=== PATIENT | female | born 1960 | race Caucasian/White ===

== ENCOUNTER 2022-08-31 15:38 | Inpatient (IN) | payer BC, SELFPAY ==
[2022-08-31] VITALS (40 sets, daily range): BP systolic 76–187; BP diastolic 41–95; PULSE 108–153; RESP 14–31; TEMP 36.4–37.4; O2SAT 87–100; BMI 31.2
--- NOTE | ~2022-08-31 | MR_ITS ---
EXAMINATION: MR abdomen wo/w con DATE: 09/03/2022 13:44 INDICATION: Liver mass. TECHNIQUE: Magnetic resonance imaging (MRI) of the abdomen was performed without and with 19 mL Multi Rena intravenous contrast. COMPARISON: CT abdomen and pelvis 08/31/2022 FINDINGS: There are small pleural effusions. There is diffuse hepatic steatosis. In left hepatic lobe, there is an 8.0 x 6.2 cm mass with areas of internal arterial hyperenhancement. Much of the mass demonstrates portal venous phase hyperenhancement. There is an 8 mm hyperenhancing mass in segment VIII of the li selma, most likely benign. The gallbladder is normal in size. Gallbladder wall thickening is seen, like ly interstitial edema. The spleen, pancreas, adrenal glands, and left kidney are normal. There are ar eas of nonenhancement in right kidney. There is a subcapsular hematoma in right kidney with maximum t hickness of 2.6 cm. There are no dilated loops of bowel. There are no pathologically enlarged lymph n odes. There is no free intraperitoneal fluid. IMPRESSION: 1. 8.0 cm liver mass. The differential diagnosis includes hepatocellular carcinoma and benign mass jasso ch as hemangioma. Ultrasound-guided biopsy is recommended. 2. Subcapsular hematoma of right kidney, likely subacute. 3. Small pleural effusions. Reviewed, dictated and finalized at location A. IMPRESSION: 1. 8.0 cm liver mass. The differential diagnosis includes hepatocellular carcin jessica and benign mass such as hemangioma. Ultrasound-guided biopsy is recommended . 2. Subcapsular hematoma of right kidney, likely subacute. 3. Small pleural effusions.
--- NOTE | ~2022-08-31 | XR_ITS ---
EXAMINATION: XR retrograde pyelo w/stent RT DATE: 08/31/2022 20:14 INDICATION: Right hydronephrosis. TECHNIQUE: 5 intraoperative fluoroscopic views of the abdomen and pelvis were obtained. I was not pre sent. Fluoroscopy exposure time was 14 seconds. COMPARISON: CT abdomen and pelvis 08/31/2022 FINDINGS: The right-sided retrograde pyelogram demonstrates extraluminal contrast adjacent to lower p ole of right kidney. The final images demonstrate a right internal ureteral stent with loops in the k idney lower pole and bladder. IMPRESSION: 1. Extraluminal contrast adjacent to lower pole of right kidney. 2. Right internal ureteral stent with loops in the kidney lower pole and bladder. Reviewed, dictated and finalized at location A. IMPRESSION: 1. Extraluminal contrast adjacent to lower pole of right kidney. 2. Right internal ureteral stent with loops in the kidney lower pole and bladde r.
--- NOTE | ~2022-08-31 | CT_ITS ---
EXAMINATION: CT abdomen pelvis wo con DATE: 08/31/2022 16:41 INDICATION: Generalized abdominal pain. TECHNIQUE: Computed tomography (CT) of the abdomen and pelvis was performed without intravenous contr ast. Automated exposure control and iterative reconstruction technique were employed. The dose-length product was 983.79 mGy-cm. COMPARISON: None. FINDINGS: The visualized portions of the lung bases demonstrate mild atelectasis. Calcified right hil ar and mediastinal lymph nodes are consistent with old granulomatous disease. No pleural effusion. Th e heart size is normal. There are coronary artery calcifications. No pericardial effusion. There is d iffuse hepatic steatosis. There is an 8.0 cm mass in left hepatic lobe. Calcifications in the spleen are consistent with old granulomatous disease. The gallbladder, pancreas, and adrenal glands are norm al. There is cortical thinning in right kidney. There are two 2 mm stones in right kidney. There is m ild right hydronephrosis and proximal hydroureter. There is a 4 mm mass in proximal right ureter with attenuation of 49 HU. There is asymmetric fat stranding around right kidney. There are 3 stones in l eft kidney measuring up to 4 mm. There is diverticulosis of the colon without evidence of diverticuli tis. There are no dilated loops of bowel. The appendix is not visualized. Paraesophageal varices are noted. There is a paraumbilical portacaval shunt. There is a portacaval shunt from the splenic vein t o the pelvis. No pathologically enlarged lymph nodes. There is no free intraperitoneal fluid. There a re bilateral inguinal hernias containing fat. There is mild thoracolumbar spondylosis. IMPRESSION: 1. 4 mm mass in proximal right ureter with mild right hydronephrosis. The mass may be a hematoma, sto ne, or neoplasm. 2. Bilateral nonobstructing kidney stones. 3. 8.0 cm liver mass, which may be benign or malignant. Abdomen MRI without and with contrast is shayan mmended. 4. Diffuse hepatic steatosis. 5. Portal venous hypertension. Reviewed, dictated and finalized at location A. IMPRESSION: 1. 4 mm mass in proximal right ureter with mild right hydronephrosis. The mass may be a hematoma, stone, or neoplasm. 2. Bilateral nonobstructing kidney stones. 3. 8.0 cm liver mass, which may be benign or malignant. Abdomen MRI without and with contrast is recommended. 4. Diffuse hepatic steatosis. 5. Portal venous hypertension.
--- NOTE | ~2022-08-31 | XR_ITS ---
EXAMINATION: XR chest port-a-cath/central INDICATION: Central line insertion TECHNIQUE: Portable AP chest at 0319 hours COMPARISON: 12/13/2006 FINDINGS: A right internal jugular catheter ends with its tip in the distal superior vena cava. There is mild atelectasis of the lung bases. No pleural effusion or pneumothorax. The cardiomediastinal si lhouette is normal. IMPRESSION: 1. Right internal jugular central venous catheter ending with its tip in the distal superior vena cav a. No pneumothorax. 2. Mild atelectasis of the lung bases. Reviewed, dictated and finalized at location D. IMPRESSION: 1. Right internal jugular central venous catheter ending with its tip in the di stal superior vena cava. No pneumothorax. 2. Mild atelectasis of the lung bases.
[2022-08-31 16:14] LABS: Hematocrit 39.7 % (37.0-47.0); Mean Corpuscular HGB Conc 32.7 g/dl (32-36); Mean Corpuscular Hemoglobin 27.8 pg (26-34); Mean Platelet Volume 10.7 fl (7.4-10.4); Platelet Count Result 128 k/mm3 (150-375); Red Blood Count 4.67 M/mm3 (4.2-5.4); White Blood Count 15.5 K/mm3 (4.5-10.0)
[2022-08-31] MEDS: SODIUM CHLORIDE 0.9% IV 1,000 ML 999 ML IV CONT ×2 (16:15→18:18)
[2022-08-31] MEDS: fentaNYL CITRATE INJ (*CRX) 100 MCG/2 ML VIAL 50 MCG IV PUSH ×2 (16:16→18:18)
[2022-08-31 16:26] LABS: Albumin Level 3.8 g/dL (3.5-5.1); Alkaline Phosphatase 26 U/L (38-126); Anion Gap 18 mmol/L (8-16); Aspartate Amino Transferase 48 U/L (14-36); Blood Urea Nitrogen 33 mg/dL (7-17); Calcium 8.5 mg/dL (8.4-10.2); Carbon Dioxide 18 mmol/L (22-30); Chloride 99 mmol/L (98-107); Estimated Glomerular Filt Rate 29; Glucose 458 mg/dL (65-110); Lipase 48 U/L (23-300); Potassium 4.3 mmol/L (3.4-5.0); Sodium 135 mmol/L (137-145)
[2022-08-31 16:34] LABS: Band Neutrophils Percent 28 % (0-6); Lymphocytes Absolute Manual 0.93 K/mm3 (1.1-4.5); Monocytes Absolute Manual 0.31 K/mm3 (0.1-0.90); Monocytes Percent Manual 2 % (3-9); Neutrophils Absolute Manual 14.26 K/mm3 (1.7-7.2); Neutrophils Percent Manual 64 % (46-73); Total Cells Counted 100
[2022-08-31 16:35] LABS: Schistocytes None Seen (NORMAL)
[2022-08-31 16:43] LABS: Alanine Aminotransferase 58 U/L (6-35)
[2022-08-31 17:07] LABS: INR 1.2; Prothrombin Time 14.9 Seconds (11.1-14.7)
[2022-08-31 17:09] LABS: Partial Thromboplastin Time 39.7 SECONDS (22.3-36.8)
--- NOTE | 2022-08-31 17:32 | ED.ABDPAIN ---
HPI - Abdominal Pain General Chief Complaint: Abdominal Pain Stated Complaint: abd pain Time Seen by Provider: 08/31/22 15:51 History of Present Illness HPI narrative: Patient is a 62-year-old female who presents ER with right side abdominal pain. Worsening for the last 2 days. Associate with fevers. No chills. No chest pain or chest pressure. No alleviating factors. Worse with any type of movement. Normal bowel movements. Denies urinary symptoms. Related Data Home Medications Medication Instructions Recorded Confirmed empagliflozin 25 mg tablet mg 08/31/22 (Jardiance) insulin glargine 100 unit/mL (3 unit subcut 08/31/22 mL) subcutaneous pen (Basaglar KwikPen U-100 Insulin) insulin lispro 200 unit/mL (3 mL) subcut 08/31/22 subcutaneous pen (Humalog KwikPen U-200 Insulin) liraglutide 0.6 mg/0.1 mL (18 mg/3 mg subcut 08/31/22 mL) subcutaneous pen injector (Victoza 2-Timothy) lisinopril 30 mg tablet mg 08/31/22 oxybutynin chloride 5 mg tablet mg 08/31/22 sertraline 100 mg tablet mg 08/31/22 Allergies Allergy/AdvReac Type Severity Reaction Status Date / Time No Known Allergies Allergy Mild Verified 08/31/22 15:59 Review of Systems Review of Systems: All systems reviewed & are unremarkable except as noted in HPI and below Constitutional: Constitutional: Denies chills, Denies fatigue and Reports fever(s) ENT: Denies nasal congestion and Denies sore throat Cardiovascular: Cardiovascular: Denies chest pain, Denies rapid heart rate and Denies radiating jaw, neck or arm pain Respiratory: Respiratory: Denies cough and Denies dyspnea Gastrointestinal: Gastrointestinal: Reports abdominal pain, Denies constipation, Denies diarrhea, Reports nausea and Denies vomiting Genitourinary: Genitourinary: Denies hematuria, Denies nocturia and Denies dysuria Musculoskeletal: Musculoskeletal: Denies back pain and Denies myalgias [facility] Past Medical History Medical History (Updated 08/31/22 @ 22:26 by Ap Joseph MD) Diabetes Hypertension Kidney stones Surgical History Surgical History (Updated 08/31/22 @ 22:24 by Ap Joseph MD) History of hysterectomy Social History Social History (Updated 08/31/22 @ 22:24 by Ap Joseph MD) Smoking status: Never smoker Exam Narrative: GENERAL: Uncomfortable-appearing, well-nourished, and in no acute distress. HEAD: Normocephalic, atraumatic. EYES: PERRL and EOMI. ENT: Mucous membranes moist. CHEST: Clear to auscultation. No respiratory distress. HEART: Regular rate and rhythm. Normal peripheral pulses. ABDOMEN: Soft, diffusely tender abdomen that is worse in the right lower quadrant and epigastrium with guarding, nondistended, normal bowel sounds EXTREMITIES: Normal range of motion. No edema. SKIN: Warm, dry, no rash. NEURO: Alert and oriented x3. PSYCH: Normal mood and affect. Course Course Emergency Course: Discussed with urology who will take patient to the OR for stent placement. Hospitalist contacted to make aware of severity of illness and need for management after admission from OR. Blood pressure responding to IV fluid. Patient is good color is not altered. Pain control with fentanyl while in the ER. Patient does not believe she is known to have a liver mass. Vital Signs Vital signs: Vital Signs Temperature 97.7 F 08/31/22 15:45 Pulse Rate 122 H 08/31/22 15:45 Respiratory Rate 14 08/31/22 15:45 Blood Pressure 87/41 L 08/31/22 15:45 Pulse Oximetry 99 08/31/22 15:45 Oxygen Delivery Room Air 08/31/22 15:45 Temperature 97.6 F 08/31/22 21:45 Pulse Rate 119 H 08/31/22 21:45 Respiratory Rate 18 08/31/22 21:45 Blood Pressure 112/61 08/31/22 21:45 Pulse Oximetry 100 08/31/22 21:45 Oxygen Delivery Nasal Cannula 08/31/22 21:35 Oxygen Flow Rate 5 08/31/22 21:35 MDM - Abdominal Pain Lab Data Result diagrams: 08/31/22 16:07 08/31/22 16:07
[2022-08-31 17:42] LABS: Add Urine Microscopic? YES; Amorphous Sediment Urine Few; Appearance Urine Cloudy (Clear); Bacteria Urine Trace /hpf; Bilirubin Urine Negative (Negative); Blood Urine 1+ (Negative); Color Urine Amber (Yellow); Glucose Urine UA 3+ mg/dL (Negative); Ketones Urine Negative (Negative); Leukocyte Esterase Ur 2+ LEU/UL (Negative); Mucus Urine Rare /lpf; Nitrate Urine Negative (Negative); Protein Urine 1+ mg/dL (Negative); Specific Grav Ur 1.018 (1.001-1.035); Squamous Epithelial Cell Urine Many /hpf (Few); Urobilinogen Urine Negative mg/dL (<2.0); WBC Clumps Urine Present /HPF; WBC Urine >75 /hpf
--- NOTE | 2022-08-31 18:33 | WPDURCON ---
Assessment and Plan Assessment and plan (1) Ureteral obstruction, right: Code(s): N13.5 - Crossing vessel and stricture of ureter without hydronephrosis Status: Acute Plan 62F with diabetes and SIRS with potential urinary source with leukocytosis, MOISES, and CT showing mild hydronephrosis and right proximal ureteral obstruction. - Due to the above, planning for urgent OR for cystoscopy, right ureteral stent placement, retrograde pyelogram, and other indicated procedures. Discussed risks and benefits with patient who endorses understanding and willing to proceed. - Admit to hospitalist team after OR. - Continue IV antibiotics at this time. Urology Consult Note HPI Date Seen: 08/31/22 Primary Care Provider: Andrew Severino, Consult Narrative Narrative: Verona Frausto is a 62 year old female with hx of DM, HTN, OAB presenting to the ED with abdominal pain found to have signs of UTI and a right ureteral obstruction. Patient presented with abdominal discomfort which was generalized but mostly on the right side. Denies hematuria, did have some chills this AM. After presenting to the ED, found to be tachycardic, mildly hypotensive. Had leukocytosis, MOISES, and UA with signs of infection. CT scan with right proximal ureteral obstruction though unclear if hematoma, mass, or stone. Right hydronephrosis noted; no left sided hydronephrosis noted (scan personally reviewed). Meds Home Medications and Allergies Home Medications Medication Instructions Recorded Confirmed Type empagliflozin 25 mg tablet mg 08/31/22 History (Jardiance) insulin glargine 100 unit/mL (3 unit subcut 08/31/22 History mL) subcutaneous pen (Basaglar KwikPen U-100 Insulin) insulin lispro 200 unit/mL (3 mL) subcut 08/31/22 History subcutaneous pen (Humalog KwikPen U-200 Insulin) liraglutide 0.6 mg/0.1 mL (18 mg/3 mg subcut 08/31/22 History mL) subcutaneous pen injector (Victoza 2-Timothy) lisinopril 30 mg tablet mg 08/31/22 History oxybutynin chloride 5 mg tablet mg 08/31/22 History sertraline 100 mg tablet mg 08/31/22 History Allergies Allergy/AdvReac Type Severity Reaction Status Date / Time No Known Allergies Allergy Mild Verified 08/31/22 15:59 Vital Signs Vital Signs - 24 hr 08/31/22 15:45 08/31/22 15:56 08/31/22 16:04 Temperature 36.5 C Pulse Rate 122 H 119 H Respiratory Rate 14 28 H Blood Pressure 87/41 L 102/55 L Pulse Oximetry 99 90 95 Oxygen Delivery Room Air Room Air Nasal Cannula Oxygen Flow Rate 2 08/31/22 17:05 08/31/22 16:47 Temperature Pulse Rate 114 H 117 H Respiratory Rate 24 H 24 H Blood Pressure 98/57 L 97/67 L Pulse Oximetry 95 95 Oxygen Delivery Oxygen Flow Rate Exam Const: General: no acute distress Eyes: General: appearance normal, both eyes and all related structures Resp: Effort & Inspection: normal respiratory effort Cardio: Other: Tachycardic GI: Other: Soft, nondistended, mildly tender to palpation : Other: Right CVA tenderness Skin: General skin exam: no rashes or lesions noted Neuro: Other: WNL Results Labs CBC & Chem 7: 08/31/22 16:07 08/31/22 16:07 Labs: Short CBC 08/31/22 Range/Units 16:07 WBC 15.5 H (4.5-10.0) K/mm3 Hgb 13.0 (12.0-15.0) g/dL Hct 39.7 (37.0-47.0) % Plt Count 128 L (150-375) k/mm3 BMP 08/31/22 16:07 Sodium 135 L Potassium 4.3 Chloride 99 Carbon Dioxide 18 L BUN 33 H Creatinine 1.80 H Glucose 458 H Calcium 8.5 Liver Function 08/31/22 Range/Units 16:07 Total Bilirubin 1.0 (0.2-1.3) mg/dL AST 48 H (14-36) U/L ALT 58 H (6-35) U/L Alkaline Phosphatase 26 L (38-126) U/L Albumin 3.8 (3.5-5.1) g/dL Urine 08/31/22 Range/Units 17:20 Urine Color [place] (Yellow) Urine Appearance Cloudy H (Clear) Urine pH 5.0 (5.0-9.0) Ur Specific [place] 1.018 (1.001-1.035) Urine Protein 1+ H (
[2022-08-31 18:40] LABS: Lactic Acid Reflex 6.6 mmol/L (0.7-2.0)
--- NOTE | 2022-08-31 18:48 | WPDANESEPPF ---
Anes - Initial Pre Proc Eval Procedure: Cystoscopy, R ureteral stent placement, retrograde pyelogram Date/Time: 08/31/22 18:48 Surgeon: Annabelle Cross MD Pre Op Diagnosis: R proximal ureteral obstruction Pre Op Diagnosis: abd pain Patient Data Age: 62 Gender: F Height: Weight: 78.2 kg Last Vital Signs Temp 36.5 C 08/31/22 15:45 Pulse 114 H 08/31/22 17:05 Resp 24 H 08/31/22 17:05 BP 98/57 L 08/31/22 17:05 Pulse Ox 95 08/31/22 17:05 O2 Del Method Nasal Cannula 08/31/22 16:04 O2 Flow Rate 2 08/31/22 16:04 Allergies Allergy/AdvReac Type Severity Reaction Status Date / Time No Known Allergies Allergy Mild Verified 08/31/22 15:59 Home Medications Medication Instructions Recorded Confirmed Type empagliflozin 25 mg tablet mg 08/31/22 History (Jardiance) insulin glargine 100 unit/mL (3 unit subcut 08/31/22 History mL) subcutaneous pen (Basaglar KwikPen U-100 Insulin) insulin lispro 200 unit/mL (3 mL) subcut 08/31/22 History subcutaneous pen (Humalog KwikPen U-200 Insulin) liraglutide 0.6 mg/0.1 mL (18 mg/3 mg subcut 08/31/22 History mL) subcutaneous pen injector (Victoza 2-Timothy) lisinopril 30 mg tablet mg 08/31/22 History oxybutynin chloride 5 mg tablet mg 08/31/22 History sertraline 100 mg tablet mg 08/31/22 History Laboratory Tests 08/31/22 08/31/22 08/31/22 16:07 16:07 16:07 WBC 15.5 K/mm3 H K/mm3 (4.5-10.0) RBC 4.67 M/mm3 M/mm3 (4.2-5.4) Hgb 13.0 g/dL g/dL (12.0-15.0) Hct 39.7 % % (37.0-47.0) MCV 85.0 fl fl (80-100) MCH 27.8 pg pg (26-34) MCHC 32.7 g/dl g/dl (32-36) RDW 15.0 % H % (11.5-14.5) Plt Count 128 k/mm3 L k/mm3 (150-375) MPV 10.7 fl H fl (7.4-10.4) Immature Gran % (Auto) Not Reportable Neut % (Auto) Not Reportable Lymph % (Auto) Not Reportable [place] % (Auto) Not Reportable Eos % (Auto) Not Reportable Baso % (Auto) Not Reportable Lymph # (Auto) Not Reportable [place] # (Auto) Not Reportable Eos # (Auto) Not Reportable Baso # (Auto) Not Reportable Abs Immat Gran (auto) Not Reportable Absolute Neuts (auto) Not Reportable Absolute Nucleated RBC Not Reportable Total Counted 100 Neutrophils % (Manual) 64 % % (46-73) Band Neutrophils % 28 % H % (0-6) Lymphocytes % (Manual) 6.0 % L % (18-44) Monocytes % (Manual) 2 % L % (3-9) Nucleated RBC % Not Reportable Abs Neuts (Manual) 14.26 K/mm3 H K/mm3 (1.7-7.2) Abs Lymphs (Manual) 0.93 K/mm3 L K/mm3 (1.1-4.5) Abs Monocytes (Manual) 0.31 K/mm3 K/mm3 (0.1-0.90) Platelet Estimate Slightly decreased (Adequate) Schistocytes None seen (NORMAL) PT 14.9 Seconds H Seconds (11.1-14.7) INR 1.2 APTT 39.7 SECONDS H SECONDS (22.3-36.8) Sodium 135 mmol/L L mmol/L (137-145) Potassium 4.3 mmol/L mmol/L (3.4-5.0) Chloride 99 mmol/L mmol/L (98-107) Carbon Dioxide 18 mmol/L L mmol/L (22-30) Anion Gap 18 mmol/L H mmol/L (8-16) BUN 33 mg/dL H mg/dL (7-17) Creatinine 1.80 mg/dL H mg/dL (0.7-1.0) Estim Creat Clear Calc Not Reportable Estimated GFR 29 L (59 - ) Glucose 458 mg/dL H mg/dL (65-110) Lactic Acid Calcium 8.5 mg/dL mg/dL (8.4-10.2) Total Bilirubin 1.0 mg/dL mg/dL (0.2-1.3) AST 48 U/L H U/L (14-36) ALT 58 U/L H U/L (6-35) Alkaline Phosphatase 26 U/L L U/L (38-126) Total Protein 7.0 g/dL g/dL (6.3-8.2) Albumin 3.8 g/dL g/dL (3.5-5.1) Lipase 48 U/L U/L (23-
[2022-08-31] MEDS: LACTATED RINGERS 1,000 ML 30 ML IV CONT ×2 (19:00→20:14)
[2022-08-31 19:24] LABS: Glucose Point of Care 340 mg/dl (65-105)
--- NOTE | 2022-08-31 19:36 | P.OP_ITS ---
Procedure Note - Detailed Date of Procedure 08/31/22 Pre-op Diagnosis Right ureteral obstruction Post-op Diagnosis Same Procedure Performed Cystoscopy, right retrograde pyelogram, right ureteral stent placement, intraoperative interpretation of fluoroscopy (<60 min) Surgeon Annabelle Cross MD Anesthesia General Indications 62F with leukocytosis, MOISES, and found to have right ureteral obstruction at proximal ureter of unclear etiology. Description of Procedure The patient was brought back to the operating theatre. After the induction of excellent anesthesia, a surgical time out was performed, and we verified the patient identification, site, laterality, and procedure. Patient received pre- operative antibiotics within 60 minutes of start time. The patient was placed in the dorsal lithotomy position. The genital area was prepped and draped in the usual, sterile fashion. We introduced a 22 Fr rigid cystoscope easily into the bladder. The urethra was noted to be unremarkable. The bladder was emptied. The scope was re-inserted. Cystoscopy did reveal multiple areas in the bladder throughout that appeared erythematous and suspicious for malignancy, including a somewhat vascular papillary area at the posterior bladder wall. We did not take biopsies due to her being tachycardic and mildly hypotensive. We then focused on the right ureteral orifice. The right ureteral orifice was identified and cannulated with 5 Fr open ended catheter. We did shoot a retrograde pyelogram, which did show mild right sided hydronephrosis. A sensor guidewire was placed into the catheter and advanced to the renal pelvis using fluoroscopy. As soon as this wire went up, purulent fluid began coming out of the ureteral orifice. A 4.8 double-J multi-length stent was then placed under direct vision with a curl observed in the kidney and in the bladder. We did not leave a string on the stent. Due to the urine appearance, a 16F urethral andres catheter was placed and 10cc was used to inflate the balloon. The patient was then awoken without event, transferred to the recovery cart and transported to the PACU in stable condition.. Implants Right 4.8F double-J multilength ureteral stent Estimated Blood Loss 0 Complications No immediate complications Condition Stable Disposition PACU (To be admitted to floor vs stepdown with hospitalist team as primary. Continue broad spectrum IV antibiotics until urine cultures return. In the future, patient will require both ureteroscopy to assess the proximal ureteral obstruction, as well as bladder biopsy/TURBT in an outpatient setting. )
[2022-08-31] MEDS: SCOPOLAMINE 1.5 MG PATCH TRANSDERM (19:38)
--- NOTE | 2022-08-31 19:39 | P.PNAN_ITS ---
Anes - Eval Final PreProcedure Day of Procedure 08/31/22 19:39 Patient weight: overweight Heart: tachycardia Lungs: decreased breath sounds Airway: Mallampati scale class III Neurological: other (alert) Last oral intake: >/= 8 hours ASA classification: III Emergent: yes Anesthetic plan: proceed Anesthesia type and monitoring: general LMA and standard monitoring Results Review: All pre-operative results and documents have been reviewed as part of the pre- operative evaluation. Informed Consent: The patient's anesthetic plan and its attendant risks and benefits were discussed with the patient/family/POA. Questions were solicited and answers provided to the satisfaction of the patient/family/POA.
--- NOTE | 2022-08-31 19:41 | WPDHPUPDATE1 ---
History and Physical Update Update Date/Time: 08/31/22 19:41 History and Physical has been reviewed, including an updated exam of the patient. There are NO changes in the patient's condition. Risks, benefits, and alternatives have been discussed and questions answered. Patient agrees to proceed with procedure.
[2022-08-31] MEDS: LIDOCAINE HCL 2% GEL UROJET 10 ML PKG MUCOUS MEM (20:02)
--- NOTE | 2022-08-31 20:15 | PM.IMHP ---
H&P: HPI History of Present Illness Date/Time: 08/31/22 20:15 Chief Complaint: Flank pain Narrative: This is a 62-year-old female with past medical history significant for type 2 diabetes mellitus, patient is now status post retrograde pyelogram with situs copy and stent placement presented to the emergency room with right flank pain of 2 day duration, not much history was able to obtain as patient is status post procedure she still coming out of anesthesia. patient was found to have on CT of abdomen and pelvis: IMPRESSION: 1. 4 mm mass in proximal right ureter with mild right hydronephrosis. The mass may be a hematoma, stone, or neoplasm. 2. Bilateral nonobstructing kidney stones. 3. 8.0 cm liver mass, which may be benign or malignant. Abdomen MRI without and with contrast is recommended. 4. Diffuse hepatic steatosis. 5. Portal venous hypertension. patient with lactic acid of 6 as well initial white blood cell count was 15,000 creatinine 1.8 urinalysis was significant for WBC more than 75 per high-power field. In the postop patient had episode of hypoxia, low oxygen saturation requiring 6 L by nasal cannula.Patient is been admitted for further evaluation management and treatment. Review of Systems Review of Systems: ROS unobtainable: Yes unobtainable due to medical condition ( sepsis, anesthesia.) [facility] Past Medical History Medical History (Updated 09/01/22 @ 06:15 by Mynor Song MD) Diabetes Hypertension Kidney stones Surgical History Surgical History (Updated 08/31/22 @ 22:24 by Ap Joseph MD) History of hysterectomy Social History Social History (Updated 08/31/22 @ 22:24 by Ap Joseph MD) Smoking status: Former smoker Alcohol intake: never Substance use: never Substance use type: does not use Spiritual care concerns: No Has the Lack of Transportation Kept You From Medical Appointments or From Getting Medications?: No Within the Past 12 Months, Were You Worried Whether Your Food Would Run Out Before You Got Money to Buy More?: Never True What is Your Housing Situation Today?: I Have Housing Are You Worried That in the Next 2 Months, You May Not Have Your Own Housing to Live In?: No Do You Have Trouble Paying Your Heating Or Electricity Bill?: No Do You Have Trouble Paying For Medicines?: No Are You Currently Unemployed and Looking for Work?: No Highest Level of Education Completed: Decline to Answer Do You Have Trouble With Childcare or the Care of a Family Member?: No Meds Home Medications and Allergies Home Medications Medication Instructions Recorded Confirmed Type buspirone 10 mg tablet 10 mg PO Q12H PRN Anxiety 08/31/22 08/31/22 History empagliflozin 25 mg tablet 25 mg PO DAILY 08/31/22 08/31/22 History (Jardiance) insulin glargine 100 unit/mL (3 40 unit subcut BID 08/31/22 08/31/22 History mL) subcutaneous pen (Basaglar KwikPen U-100 Insulin) insulin lispro 200 unit/mL (3 mL) 3 unit subcut TIDWMEAL 08/31/22 08/31/22 History subcutaneous pen (Humalog KwikPen U-200 Insulin) lisinopril 30 mg tablet 30 mg PO DAILY 08/31/22 08/31/22 History oxybutynin chloride 5 mg tablet 10 mg PO BID 08/31/22 08/31/22 History sertraline 100 mg tablet 100 mg PO DAILY 08/31/22 08/31/22 History Allergies Allergy/AdvReac Type Severity Reaction Status Date / Time No Known Allergies Allergy Mild Verified 08/31/22 15:59 Vital Signs Vital Signs - 24 hr 08/31/22 15:45 08/31/22 15:56 08/31/22 16:04 Temperature 97.7 F Pulse Rate 122 H 119 H Respiratory Rate 14 28 H Blood Pressure 87/41 L 102/55 L Pulse Oximetry 99 90 95 Oxygen Delivery Room Air Room Air Nasal Cannula Oxygen Flow Rate 2 08/31/22 17:05 08/31/22 16:47 08/31/22 18:52 Temperature Pulse Rate 114 H 117 H 118 H Respiratory Rate 24 H 24 H 20 Blood Pressure 98/57 L 97/67 L 107/67 Pulse Oximetry 95 95 100 Oxygen Delivery Oxygen Flow Rate Exam Narr
[2022-08-31] MEDS: MIDAZOLAM HCL (*CRX) 2 MG/2 ML VIAL IV PUSH (20:30)
[2022-08-31] MEDS: METOPROLOL TARTRATE INJ 5 MG/5 ML VIAL IV PUSH ×2 (20:35→20:42)
[2022-08-31] MEDS: HYDROCORTISONE SODIUM SUCCINATE 100 MG/2 ML VIAL IV PUSH (20:42)
[2022-08-31] MEDS: ALBUTEROL SULFATE NEB 2.5 MG/3 ML INH INHALATION (20:47)
[2022-08-31] MEDS: INSULIN HUMAN REGULAR (*BKC) 100 UNITS/ML 8 UNITS SUB-Q (20:48)
[2022-08-31 21:20] LABS: Reflex Lactic Acid Yes or No Add Lactic
[2022-08-31 21:24] LABS: Glucose Point of Care 299 mg/dl (65-105)
[2022-08-31 22:00] LABS: Glucose Point of Care 268 mg/dl (65-105)
--- NOTE | 2022-08-31 22:07 | SUR.PHASEI ---
2013- Patient brought to recovery room s/p cysto. First set of vital obtained, patient tachycardic 140's with respiratory rate 25. Audible wheezes. 2028- IV tylenol given for temperature 99.9. 2029- Patient continues to be tachycardic, tachypneic, and very restless. Dr. Pollack and [employer] at bedside. 2mg of versed given to patient. 2034- Tachycardia continues, 5mg of IV lopressor given for heart rate 140-150's. EKG ordered. 2041- Albuterol neb treatment being given to patient for wheezing and labored breathing. 100mg of solucortef also administered along with 5mg of IV lopressor for continued tachycardia. 2043- blood glucose check, 299. 8u of regular insulin given to patient subcutaneously. 2099- Patient resting comfortably. Vital signs improved. O2 titrated down to 5L, patients daughter Corinne at bedside visiting with patient. Awaiting transfer to IMU room 2144- Patient transfered to IMU report given to [place]. Patient in stable condition.
--- NOTE | 2022-08-31 22:35 | ADMGEN ---
This patient, Verona Frausto, was admitted to IMU Room 203-01. Patient/family oriented to hospital policies and general routines including ID bracelet, bed and alarms, visiting hours, pain management, procedures, bathroom and other care routines, personal items, smoking policy, room service/diet, and visiting hours. Information on how to activate the Rapid Response Team has been discussed. Patient/Family are encouraged to report perceived risks to care and to ask questions if they do not understand what they are told or what they should do.
[2022-08-31 23:05] LABS: Hematocrit 39.3 % (37.0-47.0); Hemoglobin 12.7 g/dL (12.0-15.0); Immature Platelet Fraction Pct 4.1 % (0.9-11.2); Mean Corpuscular HGB Conc 32.3 g/dl (32-36); Mean Corpuscular Hemoglobin 28.2 pg (26-34); Mean Corpuscular Volume 87.3 fl (80-100); Platelet Count Result 92 k/mm3 (150-375); Red Cell Distribution Width 15.2 % (11.5-14.5); White Blood Count 4.3 K/mm3 (4.5-10.0)
[2022-08-31 23:13] LABS: INR 1.3; Prothrombin Time 15.8 Seconds (11.1-14.7)
[2022-08-31 23:17] LABS: Anion Gap 16 mmol/L (8-16); Blood Urea Nitrogen 35 mg/dL (7-17); Calcium 7.9 mg/dL (8.4-10.2); Carbon Dioxide 16 mmol/L (22-30); Chloride 104 mmol/L (98-107); Estimated CRCL calculation 33 ml/min; Estimated Glomerular Filt Rate 31; Glucose 268 mg/dL (65-110); Phosphorus 4.5 mg/dL (2.5-4.5); Potassium 4.1 mmol/L (3.4-5.0); Sodium 136 mmol/L (137-145)
[2022-08-31] MEDS: SODIUM CHLORIDE 0.9% IV 500 ML IV CONT (23:23)
[2022-08-31 23:24] LABS: Neutrophils Percent Manual 70 % (46-73); Total Cells Counted 100
[2022-08-31] MEDS: MORPHINE SULFATE (*CRX) 2 MG/ML INJ IV PUSH (23:24)
[2022-08-31 23:25] LABS: Band Neutrophils Percent 23 % (0-6); Lymphocytes Absolute Manual 0.21 K/mm3 (1.1-4.5); Lymphocytes Percent Manual 5 % (18-44); Monocytes Absolute Manual 0.08 K/mm3 (0.1-0.90); Monocytes Percent Manual 2 % (3-9); Neutrophils Absolute Manual 3.99 K/mm3 (1.7-7.2); Platelet Estimate Decreased (Adequate); Schistocytes None Seen (NORMAL)
--- NOTE | 2022-08-31 23:55 | PC.NURSE ---
Updated daughter, Kinga, on patient condition, plan of care, visiting hours and age restrictions.
[2022-09-01] VITALS (50 sets, daily range): BP systolic 68–148; BP diastolic 35–86; PULSE 70–159; RESP 16–31; TEMP 36.4–37.5; O2SAT 82–100
[2022-09-01] MEDS: hetaSTARCH 6%/NACL 500 ML 250 ML IV CONT (01:06)
--- NOTE | 2022-09-01 02:10 | ECG_ITS ---
Measurements Intervals [place] Rate: 162 P: NV: 0 QRS: 21 QRSD: 82 T: -3 QT: 265 QTc: 436 Interpretive Statements ATYPICAL ATRIAL FLUTTER/TACHYCARDIA WITH RAPID VENTRICULAR RESPONSE MINIMAL ST DEPRESSION [0.025+ mV ST DEPRESSION] ABNORMAL RHYTHM ECG NO PREVIOUS ECG AVAILABLE FOR COMPARISON HOW Electronically Signed On 09-01-2022 14:00:32 CDT by Speedy Krause M.D.
[2022-09-01] MEDS: SODIUM CHLORIDE 0.9% IV 1,000 ML 999 ML IV CONT (02:55)
[2022-09-01] MEDS: NOREPINEPHRINE 8 MG/D5W 250 ML 8 MG/250 ML BAG 9.38 MG IV CONT (02:55)
--- NOTE | 2022-09-01 03:09 | PC.NURSE ---
This patient, Verona Frausto, was transferred to [ICU ] on 09/01/22 at 0230. Personal belongings sent with patient. Report given to [Tram DELAROSA ]. Appropriate documentation sent with patient.
--- NOTE | 2022-09-01 04:57 | P.PCNBED_ITS ---
Procedures Central Line Placement Right IJ: Central Line Date: 09/01/22 Central Line Time: 03:30 Consent: I have discussed with the patient and/or surrogate, the non-emergent placement of a central venous catheter, including its clinical necessity/indication and associated potential risks and complications. The patient and/or surrogate understand(s) and acknowledge(s) the need to proceed with central venous catheter insertion as an important element of the patient's clinical management. Time Out Performed: Yes Patient Position: trendelenburg Patient placed on monitor/pulse ox: Yes Provider Prep: mask, sterile gown, sterile gloves, Max. sterile barrier precautions and cap Central line prep: 2% Chlorhexidine scrub Local anesthesia used: lidocaine 1% Amount of anesthesia used (ml): 10 Sterile US Technique with sterile gel/sterile probe covers: Yes Central line lumen inserted: triple Georgian: 15 Length (cm): 15 Depth of Insertion (cm): 15 Post Procedure: sutured in place, good blood return, all ports aspirated, flushed, capped, transparent dressing and aseptic technique maintained throughout procedure Post procedure x-ray: tip of catheter in good position and no pneumothorax seen Patient tolerated procedure: well and no complications Complications: none
[2022-09-01] MEDS: CENTRAL LINE FLUSH 10 ML IV PUSH ×4 (06:00→21:04)
[2022-09-01 06:44] LABS: Hematocrit 32.1 % (37.0-47.0); Hemoglobin 10.5 g/dL (12.0-15.0); Immature Platelet Fraction Pct 3.6 % (0.9-11.2); Mean Corpuscular HGB Conc 32.7 g/dl (32-36); Mean Corpuscular Hemoglobin 27.9 pg (26-34); Mean Corpuscular Volume 85.4 fl (80-100); Mean Platelet Volume 10.4 fl (7.4-10.4); Platelet Count Result 95 k/mm3 (150-375); Red Blood Count 3.76 M/mm3 (4.2-5.4); Red Cell Distribution Width 15.5 % (11.5-14.5); White Blood Count 9.7 K/mm3 (4.5-10.0)
[2022-09-01 06:53] LABS: Anion Gap 13 mmol/L (8-16); Blood Urea Nitrogen 39 mg/dL (7-17); Carbon Dioxide 18 mmol/L (22-30); Chloride 106 mmol/L (98-107); Estimated CRCL calculation 31 ml/min; Estimated Glomerular Filt Rate 29; Glucose 261 mg/dL (65-110); Magnesium 1.1 mg/dL (1.6-2.3); Phosphorus 4.6 mg/dL (2.5-4.5); Sodium 137 mmol/L (137-145)
[2022-09-01 06:55] LABS: Lactic Acid Reflex 3.4 mmol/L (0.7-2.0)
--- OUTSIDE RECORDS SUMMARY | 2022-09-01 07:14 | XMS_ITS ---
:1960 Author Care Team Providers Name Role Phone Jeronimo Walden Primary Care Provider Unavailable Allergies Code Code System Name Reaction Severity Status Onset NKDA ? Medications Name Status Start Date Stop Date ? ? albuterol sulfate HFA 90 mcg/actuation aerosol inhaler Active ? Not available Inhale 2 puffs every 4 hours by inhalation route for 30 days. bupropion HCl XL 150 mg 24 hr tablet, extended release Unknown ? Not available estradiol 1 mg tablet Unknown ? Not availa ble nicotine 21 mg/24 hr daily transdermal patch Unknown ? Not available tramadol 50 mg tablet Unknown ? Not availa ble trazodone 50 mg tablet Unknown ? Not avail able Problems Name Status Onset Date Source ? Depressive Disorder Active ? Encounter Chronic Obstructive Lung Disease Active ? Encounter Procedures Date Name Performed by ? ? Caesarean Section Information not avai lable ? Appendectomy Information not avai lable 03/09/2015 PFT Pulmonary Function Tests Information not available Results Lab Results None recorded. Past Encounters None recorded. Social History Tobacco Smoking Status Former Smoker Notes: cigarett es Vaccine List None recorded. Plan of Care Reminders Provider Appointments None recorded. ? ? Lab None recorded. ? ? Referral None recorded. ? ? Procedures None recorded. ? ? Surgeries None recorded. ? ? Imaging None recorded. ? ? Vitals Height Weight BMI Blood Pressure 5 ft 3.5 in 213 lbs 6.4 oz 37.2
--- OUTSIDE RECORDS SUMMARY | 2022-09-01 07:15 | XMS_ITS ---
:1960 Author Care Team Providers Name Role Phone DR. JOURDAN RIOS Primary Care Provider [phone] DR. JOURDAN RIOS Referring Provider [phone] Allergies Code Code System Name Reaction Severity Status Onset NKDA ? Medications Name Status Start Date Stop Date ? ? Accu-Chek Softclix Lancets Completed ? 09/24 TEST TID. Afluria Quad 9569-1505 (PF) 60 mcg (15 mcg x 4)/0.5 mL IM syring e Completed ? 12/09/2018 ADM 0.5ML IM UTD albuterol sulfate HFA 90 mcg/actuation aerosol inhaler Completed ? 09/24/2020 amoxicillin 875 mg-potassium clavulanate 125 mg tablet Completed ? 07/04/2018 atorvastatin 20 mg tablet Completed ? 2019 atorvastatin 40 mg tablet Completed ? 2021 Take 1 tablet by oral route. atorvastatin 80 mg tablet Completed ? 2021 TAKE 1 TABLET BY MOUTH EVERY DAY AT BEDTIME azithromycin 250 mg tablet Completed ? 09/13 Basaglar KwikPen U-100 Insulin 100 unit/mL (3 mL) subcutaneous A ctive ? Not available ADMINISTER 40 UNITS UNDER THE SKIN EVERY MORNING AND EVERY EVEN ING Rodrig[place] Low Dose Aspirin 81 mg tablet,delayed release Active ? Not available Take 1 tablet every day by oral route with meals for 90 days. BD Alcohol Swabs Completed ? 09/24/2020 CHECK ACCUCHECK 2 TO 4 TIMES PER DAY UTD BD Ultra-Fine Mini Pen Needle 31 gauge x 3/16 Completed ? 09/24/2020 USE NIGHTLY WITH BASAGLAR buspirone 10 mg tablet Active ? Not avail able TAKE 1 TABLET BY MOUTH EVERY 12 HOURS NEEDED By[place] 5 mcg/dose (250 mcg/mL)1.2 mL subcutaneous pen injector C ompleted ? 01/02/2019 Inject 5 micrograms twice a day by subcutaneous r
--- OUTSIDE RECORDS SUMMARY | 2022-09-01 07:15 | XMS_ITS ---
:1960 Author Care Team Providers Name Role Phone DR. JOURDAN RIOS Primary Care Provider [phone] DR. JOURDAN RIOS Referring Provider [phone] JOURDAN RIOS MD Primary Care Provider [phone] Allergies Code Code System Name Reaction Severity Status Onset 0201 RxNorm Metformin Diarrhea Severe Active ? Medications Name Status Start Date Stop Date ? ? Accu-Chek Softclix Lancets Completed ? 09/24 TEST TID. Afluria Quad 0229-1898 (PF) 60 mcg (15 mcg x 4)/0.5 mL IM syring e Completed ? 12/09/2018 ADM 0.5ML IM UTD albuterol sulfate HFA 90 mcg/actuation aerosol inhaler Completed ? 09/24/2020 alcohol sterile prep pads 100's Completed ? 09/24/2020 TEST TID. amoxicillin 875 mg-potassium clavulanate 125 mg tablet Completed ? 07/04/2018 aspirin 81 mg tablet,delayed release Completed ? 09/24/2020 atorvastatin 20 mg tablet Completed ? 2019 atorvastatin 40 mg tablet Active ? Not av ailable Basaglar KwikPen U-100 Insulin 100 unit/mL (3 mL) Active ? Not available subcutaneous BD Alcohol Swabs Completed ? 09/24/2020 CHECK ACCUCHECK 2 TO 4 TIMES PER DAY UTD BD Ultra-Fine Mini Pen Needle 31 gauge x /16 Completed ? 09/24/2020 USE NIGHTLY WITH BASAGLAR buspirone 10 mg tablet Active ? Not avail able TAKE 1 TABLET BY MOUTH EVERY 12 HOURS NEEDED [place] 5 mcg/dose (250 mcg/mL)1.2 mL subcutaneous pen injector C ompleted ? 01/02/2019 Inject 5 micrograms twice a day by subcutaneous route with meals for 30 days. calcium carbonate 600 mg-vitamin D3 20 mcg (800 unit) tablet Com pleted ? 09/24/2020 TK 1 T PO BID cetirizine 1
--- OUTSIDE RECORDS SUMMARY | 2022-09-01 07:15 | XMS_ITS | Encounter Summary ---
:1960 Author Care Team Providers Name Role Phone Dr. Andrew Severino Primary Care Provider [phone] Dr. Andrew Severino Referring Provider [phone] Reason for Visit Stomach Ache Assessment and Plan 1. Acute abdomen 2. Abdominal pain 3. Tachypnea 4. Feeling stressed 5. Type II diabetes mellitus uncontroll ed 6. Hypertensive disorder Discussion Note: None recorded.Patient educational handouts: No information available. Plan of Care Patient Instructions D/w pt and her daughter about her findi ngs and further plan of care. I have advised pt to get checked in ED f rom here. Offered to call ambulance, but pt declined. Pt wants her daughter to take her from h ere. D/w daughter about this too. Pt says she is not sure which ED she wan ts to go. So I couldn't call for any report. F/u as per ED MD's recommendations. Reminders Provider Appointments None recorded. ? ? Lab None recorded. ? ? Referral None recorded. ? ? Procedures None recorded. ? ? Surgeries None recorded. ? ? Imaging None recorded. ? ? Medications Name Start Date ? ? Basaglar KwikPen U-100 Insulin 100 unit/mL (3 mL) subc utaneous ? ADMINISTER 40 UNITS UNDER THE SKIN EVERY MORNING AND EVERY EVENING Rodrigo Low Dose Aspirin 81 mg tablet,delayed release ? Take 1 tablet every day by oral route with meals for 90 days. buspirone 10 mg tablet ? TAKE 1 TABLET BY MOUTH EVERY 12
[2022-09-01 07:33] LABS: Band Neutrophils Percent 36 % (0-6); Basophils Absolute Manual 0.09 K/mm3 (0.0-0.1); Basophils Percent Manual 1 % (0-1); Lymphocytes Absolute Manual 0.58 K/mm3 (1.1-4.5); Metamyelocytes Percent 8 %; Monocytes Absolute Manual 0.29 K/mm3 (0.1-0.90); Monocytes Percent Manual 3 % (3-9); Neutrophils Absolute Manual 7.95 K/mm3 (1.7-7.2); Neutrophils Percent Manual 46 % (46-73); Total Cells Counted 100
--- NOTE | 2022-09-01 07:34 | PC.NURSE ---
This patient, Verona Frausto, was received from [[facility] room 203 ] on 09/01/22 at 0230. Patient/family oriented to unit policies and routines
[2022-09-01 07:35] LABS: Poikilocytosis 1+ (NORMAL); Spherocytes 2+ (NORMAL)
[2022-09-01 07:38] LABS: Schistocytes None Seen (NORMAL)
--- NOTE | 2022-09-01 08:13 | WPDANESPN ---
Anes - Prog Note Post-Op Date/Time: 09/01/22 08:13 Cardiovascular status: normal Respiratory status: normal Airway patency: baseline Mental status: baseline Post-Op hydration status: normal Vital Signs: Last Vital Signs Temp 36.8 C 09/01/22 04:00 Pulse 114 H 09/01/22 06:00 Resp 23 H 09/01/22 06:00 BP 109/74 09/01/22 06:00 Pulse Ox 96 09/01/22 06:00 O2 Del Method Nasal Cannula 09/01/22 04:00 O2 Flow Rate 3 09/01/22 04:00 Pain Score (VAS): Patient asleep, spoke with patient's nurse, she did not report any pain throughout the night. I/O: Intake & Output 08/31/22 09/01/22 09/01/22 23:59 07:59 15:59 Intake Total 2700 1800 Output Total 240 285 Balance 2460 1515 Laboratory Tests 09/01/22 06:33 09/01/22 06:33 08/31/22 08/31/22 08/31/22 16:07 16:07 16:07 WBC 15.5 H RBC 4.67 Hgb 13.0 Hct 39.7 MCV 85.0 MCH 27.8 MCHC 32.7 RDW 15.0 H Plt Count 128 L MPV 10.7 H Immature Gran % (Auto) Not Reportable Neut % (Auto) Not Reportable Lymph % (Auto) Not Reportable [place] % (Auto) Not Reportable Eos % (Auto) Not Reportable Baso % (Auto) Not Reportable Lymph # (Auto) Not Reportable [place] # (Auto) Not Reportable Eos # (Auto) Not Reportable Baso # (Auto) Not Reportable Abs Immat Gran (auto) Not Reportable Absolute Neuts (auto) Not Reportable Absolute Nucleated RBC Not Reportable Total Counted 100 Neutrophils % (Manual) 64 Band Neutrophils % 28 H Lymphocytes % (Manual) 6.0 L Monocytes % (Manual) 2 L Basophils % (Manual) Metamyelocytes % Nucleated RBC % Not Reportable Abs Neuts (Manual) 14.26 H Abs Lymphs (Manual) 0.93 L Abs Monocytes (Manual) 0.31 Abs Basophils (Manual) Platelet Estimate Slightly decreased % Immature Plt Fraction Poikilocytosis Spherocytes Schistocytes None seen PT 14.9 H INR 1.2 APTT 39.7 H Sodium 135 L Potassium 4.3 Chloride 99 Carbon Dioxide 18 L Anion Gap 18 H BUN 33 H Creatinine 1.80 H Estim Creat Clear Calc Not Reportable Estimated GFR 29 L Glucose 458 H POC Capillary Glucose Lactic Acid Calcium 8.5 Phosphorus Magnesium Total Bilirubin 1.0 AST 48 H ALT 58 H Alkaline Phosphatase 26 L Total Protein 7.0 Albumin 3.8 Lipase 48 Urine Color Urine Appearance Urine pH Ur Specific [place] Urine Protein Urine Glucose (UA) Urine Ketones Ur Blood (Man) Urine Nitrate Urine Bilirubin Urine Urobilinogen Leukocyte Esterase Rfl Urine RBC Urine WBC Urine WBC Clumps Ur Squamous Epith Cells Amorphous Sediment Urine Bacteria Urine Mucus 08/31/22 08/31/22 08/31/22 17:20 18:14 19:22 WBC RBC Hgb Hct MCV MCH MCHC RDW Plt Count MPV Immature Gran % (Auto) Neut % (Auto) Lymph % (Auto) [place] % (Auto) Eos % (Auto) Baso % (Auto) Lymph # (Auto) [place] # (Auto) Eos # (Auto) Baso # (Auto) Abs Immat Gran (auto) Absolute Neuts (auto) Absolute Nucleated RBC Total Counted Neutrophils % (Manual) Band Neutrophils % Lymphocytes % (Manual) Monocytes % (Manual) Basophils % (Manual) Metamyelocytes % Nucleated RBC % Abs Neuts (Manual) Abs Lymphs (Manual) Abs Monocytes (Manual) Abs Basophils (Manual) Platelet Estimate % Immature Plt Fraction Poikilocytosis Spherocytes Schistocytes PT INR APTT Sodium Potassium Chloride Carbon Dioxide Anion Gap BUN Creatinine Estim Creat Clear Calc Estimated GFR Glucose POC Capillary Glucose 340 H Lactic Acid 6.6 H* Calcium Phosphorus Magnesium Total Bilirubin AST ALT Alkaline Phosphatase Total Protein Albumin Lipase Urine Color [place] Urine Appearance Cloudy H
[2022-09-01] MEDS: MORPHINE SULFATE (*CRX) 2 MG/ML INJ IV PUSH (08:25)
[2022-09-01] MEDS: SERTRALINE HCL 50 MG TABLET 100 MG PO (08:27)
[2022-09-01 09:23] LABS: Glucose Point of Care 255 mg/dl (65-105)
[2022-09-01] MEDS: LACTATED RINGERS 1,000 ML 100 ML IV CONT ×2 (09:24→21:04)
[2022-09-01] MEDS: ACETAMINOPHEN 325 MG TABLET 650 MG PO (09:26)
[2022-09-01] MEDS: ONDANSETRON INJ 4 MG/2 ML VIAL IV PUSH ×2 (09:29→15:19)
[2022-09-01] MEDS: MAGNESIUM SULF 4 GM/WATER100ML 4 GM/100 ML BAG IVPB (09:34)
[2022-09-01 09:40] LABS: Reflex Lactic Acid Yes or No Add Lactic
[2022-09-01] MEDS: INSULIN ASPART (*BKC) 100 UNITS/ML SUB-Q ×3 (09:41→13:16)
[2022-09-01] MEDS: INSULIN GLARGINE (*BKC) 100 UNITS/ML 40 UNITS SUB-Q ×2 (09:42→17:38)
[2022-09-01] MEDS: ENOXAPARIN 30 MG/0.3 ML SYRINGE SUB-Q (11:16)
[2022-09-01 11:35] LABS: Anion Gap 15 mmol/L (8-16); Blood Urea Nitrogen 38 mg/dL (7-17); Calcium 7.1 mg/dL (8.4-10.2); Carbon Dioxide 19 mmol/L (22-30); Chloride 105 mmol/L (98-107); Estimated CRCL calculation 35 ml/min; Estimated Glomerular Filt Rate 35; Glucose 219 mg/dL (65-110); Potassium 3.7 mmol/L (3.4-5.0); Sodium 139 mmol/L (137-145)
[2022-09-01 11:36] LABS: Lactic Acid Reflex 2.9 mmol/L (0.7-2.0)
--- NOTE | 2022-09-01 12:19 | PM.IMPN ---
Progress Note: A&P Assessment and Plan (1) Sepsis with acute hypoxic respiratory failure: Code(s): A41.9 - Sepsis, unspecified organism; R65.20 - Severe sepsis without septic shock; J96.01 - Acute respiratory failure with hypoxia Status: Acute Assessment and Plan: admit to ICU early goal directed therapy ongoing broad-spectrum antibiotics cultures in progress (2) Sepsis: Code(s): A41.9 - Sepsis, unspecified organism Status: Acute Assessment and Plan: likely secondary to urinary tract infection (3) Ureteral obstruction: Code(s): N13.5 - Crossing vessel and stricture of ureter without hydronephrosis Status: Acute Assessment and Plan: status post stent placement (4) UTI (urinary tract infection): Code(s): N39.0 - Urinary tract infection, site not specified Status: Acute Assessment and Plan: on broad-spectrum antibiotics (5) Liver mass: Code(s): R16.0 - Hepatomegaly, not elsewhere classified Status: Acute Assessment and Plan: MRI when clinically stable (6) Ureteral obstruction, right: Code(s): N13.5 - Crossing vessel and stricture of ureter without hydronephrosis Status: Acute Assessment and Plan: status post post stent placement (7) MOISES (acute kidney injury): Code(s): N17.9 - Acute kidney failure, unspecified Status: Acute Assessment and Plan: no prior values for comparison will continue to monitor receiving IV fluids (8) Type 2 diabetes mellitus: Code(s): E11.9 - Type 2 diabetes mellitus without complications Status: Acute Assessment and Plan: holding the Jardiance continue Lantus continue lisinopril (9) Thrombocytopenia: Code(s): D69.6 - Thrombocytopenia, unspecified Status: Acute Assessment and Plan: holding heparin products continue to monitor Subjective Date/time seen: 09/01/22 12:19 feeling pretty rough today but otherwise doing okay. No new complaints Exam Narrative: patient is laying in bed Const: General: comfortable, no acute distress, well developed, alert, awake, patient obtunded and average body habitus Nutritional Appearance: average body habitus Orientation/consciousness: oriented to person and patient obtunded HENMT: Head: normal to inspection, normocephalic and atraumatic Ears: hearing grossly normal bilaterally Face/Nose/Sinus: normal facial exam Face and sinus: normal facial exam Eyes: General: appearance normal, both eyes and all related structures Pupils: Equal, round and reactive pupils present EOM: EOMs intact bilaterally Neck: Neck: full ROM, no lymphadenopathy and no JVD Thyroid: thyroid normal Lymphatic: no lymphadenopathy noted Resp: Effort & Inspection: normal respiratory effort and able to speak in complete sentences Auscultation: clear to auscultation bilaterally Cardio: Jugular venous distension: no JVD Rate: regular rate Rhythm: regular rhythm Heart sounds: S1 normal heart sound present and S2 normal heart sound present : General: Yes deferred Skin: Rashes: no rashes Wounds: no wounds Neuro: General: oriented to person, CN's II-XI intact bilaterally, patient obtunded and Unable to assess gait Cranial nerves: Yes CN's II-XII intact bilaterally and Yes Equal, round and reactive pupils present Cognition (Neuro): abnormal cognition ( status post procedure, sepsis.) Speech: normal speech Gait exam (Neuro): Unable to assess gait Motor exam (neuro): 5/5 motor strength present throughout Extrem: General: normal to inspection, full ROM, no joint enlargement and no pedal edema Objective Data Vital Signs Vital Signs: Vital Signs - 24 hr 08/31/22 15:45 08/31/22 15:56 08/31/22 16:04 Temperature 97.7 F Pulse Rate 122 H 119 H Respiratory Rate 14 28 H Blood Pressure 87/41 L 102/55 L Pulse Oximetry 99 90 95 Oxygen Delivery Room Air Room Air Nasal Cannula Oxygen F
[2022-09-01] MEDS: MORPHINE SULFATE (*CRX) 2 MG/ML INJ 4 MG IV PUSH ×2 (12:28→17:30)
[2022-09-01 12:42] LABS: Glucose Point of Care 226 mg/dl (65-105)
--- NOTE | 2022-09-01 14:56 | ECG_ITS ---
Measurements Intervals [place] Rate: 107 P: 54 RI: 148 QRS: 42 QRSD: 81 T: 64 QT: 314 QTc: 419 Interpretive Statements SINUS TACHYCARDIA COMPARED TO ECG 09/01/2022 01:50:26 THE PATIENT IS NO LONGER IN ATRIAL FLUTTER. Electronically Signed On 09-02-2022 8:51:02 CDT by Citlalli Cordero M.D.
--- NOTE | 2022-09-01 16:03 | WPDUROPN2 ---
Progress Note: A&P Assessment and Plan (1) Sepsis: Code(s): A41.9 - Sepsis, unspecified organism Status: Acute Assessment and Plan: Cultures pending, tailor antibiotics to culture results. Patient is stable at this time. (2) UTI (urinary tract infection): Code(s): N39.0 - Urinary tract infection, site not specified Status: Acute (3) Ureteral obstruction, right: Code(s): N13.5 - Crossing vessel and stricture of ureter without hydronephrosis Status: Acute Assessment and Plan: Will keep stent in place until after discharge and she will then f/u in the office to repeat a urine culture and discuss the need for a repeat Cystoscopy, TURBT, right stent exchange and right retrograde pyelogram. She will need to call the office to schedule a 2 week f/u. (4) MOISES (acute kidney injury): Code(s): N17.9 - Acute kidney failure, unspecified Status: Acute Assessment and Plan: Improving, follow creatinine to baseline. (5) Bladder mass: Code(s): N32.89 - Other specified disorders of bladder Status: Acute Assessment and Plan: Will plan to biopsy the posterior bladder wall area of concern during the next outpatient procedure. Ok to do a voiding trial and remove andres when no longer needed for I&O's. Subjective Subjective Date/Time Seen: 09/01/22 16:03 Cystoscopy, right ureteral stent placement, right retrograde pyelogram. She is stable in the ICU with noted improvement in her labs of WBC 9.7, creatinine improvement of 1.80. CT shows a 4mm proximal right ureteral mass and bilateral non obstructive stones measuring up to 4mm in the left and 2mm in the right kidney yesterday. An area of hypervascularity noted in the posterior bladder wall during cystoscopy yesterday, but no biopsy was taken d/t possible UTI and patient's unstable condition. Tolerating catheter and stent at this time. Post Op day: 1 Review of Systems Constitutional: Constitutional: Reports fatigue, Denies fever(s), Reports lethargy and Reports malaise Cardiovascular: Cardiovascular: Denies chest pain Respiratory: Respiratory: Reports no additional respiratory complaints Gastrointestinal: Gastrointestinal: Denies abdominal pain, Denies nausea and Denies vomiting Genitourinary: Genitourinary: Denies hematuria, Denies flank pain, Denies urinary hesitancy and Denies urinary urgency Exam Const: General: cooperative, comfortable, awake and lethargic Resp: Effort & Inspection: normal respiratory effort Cardio: Rate: regular rate GI: GI Palp: Yes Soft to palpation and No Tenderness to palpation present (GI) : General: Yes no CVA tenderness Urinary Catheter: Urinary Catheter: patent and draining and urine clear Extrem: Right lower extremity: no edema Left lower extremity: no edema Objective Data Vital Signs Vital Signs: Vital Signs - 24 hr 08/31/22 16:04 08/31/22 17:05 08/31/22 16:47 Temperature Pulse Rate 114 H 117 H Respiratory Rate 24 H 24 H Blood Pressure 98/57 L 97/67 L Pulse Oximetry 95 95 95 Oxygen Delivery Nasal Cannula Oxygen Flow Rate 2 08/31/22 18:52 08/31/22 20:14 08/31/22 20:30 Temperature 99.4 F Pulse Rate 118 H 133 H 153 H Respiratory Rate 20 25 H 25 H Blood Pressure 107/67 140/95 H 187/89 H Pulse Oximetry 100 100 97 Oxygen Delivery Simple Face Mask Simple Face Mask Oxygen Flow Rate 10 10 08/31/22 20:45 08/31/22 21:00 08/31/22 21:15 Temperature Pulse Rate 110 H 115 H 119 H Respiratory Rate 24 H 24 H 30 H Blood Pressure 139/64 110/67 93/64 L Pulse Oximetry 98 99 98 Oxygen Delivery Simple Face Mask Simple Face Mask Nasal Cannula Oxygen Flow Rate 10 5 5 08/31/22 21:45 08/31/22 21:30 08/31/22 21:35 Temperature 97.6 F Pulse Rate 119 H 120 H 118 H Respiratory Rate 18 25 H 26 H Blood Pressure 112/61 104/63 95/63 L Pulse Oximetry 100 98 96 Oxygen Delivery Nasal Cannula Nasal Cannula Oxygen Flow Rate 5 5 08/31/22
--- NOTE | 2022-09-01 16:52 | WPDCNINT ---
Assessment and Plan Assessment and plan (1) Sepsis with acute hypoxic respiratory failure: Code(s): A41.9 - Sepsis, unspecified organism; R65.20 - Severe sepsis without septic shock; J96.01 - Acute respiratory failure with hypoxia Status: Acute Assessment and Plan: ICU admission post operatively with hypotension, source is bladder with UTI, post op ureteral stent Early goal directed therapy ongoing; ?broad-spectrum antibiotics - Vancomycin and ceftriaxone; piperacillin stopped; ? cultures in progress with urine showing Gram negative bacilli, identification pending Norepinephrine weaned off, has RIJ triple lumen catheter. Lactic acid 6 decreased to 2, norepinephrine weaned off, O2 weaned to 2 L/min; she drops saturation with sleeping. Smoked until 2017 4 years ago, so smoked until age 58, possible COPD. Was not possible to get a thorough history with pain, morphine, sepsis, borderline BP. Continue antibiotics, wean O2, incentive spirometry, repeat CXR if she cannot be weaned off O2 tomorrow. She had atelectasis on CXR post op. (2) UTI (urinary tract infection): Code(s): N39.0 - Urinary tract infection, site not specified Status: Acute Assessment and Plan: Gram negative bacilli, ID pending on ceftriaxone, vanco (3) Bladder mass: Code(s): N32.89 - Other specified disorders of bladder Status: Acute Assessment and Plan: No biopsy taken due to concerns for UTI and unstable condition. The area was hypervascular. (4) Type 2 diabetes mellitus: Code(s): E11.9 - Type 2 diabetes mellitus without complications Status: Acute Assessment and Plan: Glucose was uncontrolled at 458, in the 200 range; will continue insulin and regular monitoring for optimal control (5) MOISES (acute kidney injury): Code(s): N17.9 - Acute kidney failure, unspecified Status: Acute Assessment and Plan: Improving, creat was 1.8--> 1.4 Fruit Room Hand Consult Note Consult date: 09/01/22 Time Seen: 21:50 HPI: patient was seen at 21:50 POD #1 NEW CONSULT: Verona Frausto is a 62 year old female admitted to the ICU yesterday after cystoscopy, right ureteral stent placement, right retrograde pyelogram. Her postoperative lactic acid level was elevated at 6, and she required 6 liters/minute of oxygen. Her lactic acid has decreased to 2, and she is on 2 L/min O2. She answers questions slowly, just had 4 mg IV morphine. She is stable in the ICU bed #9, improved labs, WBC 9.7 which was initially 15, creatinine lower today, initially 1.80 with a decrease to 1.4 today. She was on levophed which is now on hold. She has had sinus tach and SVT, mostly sinus tach. SVT has not been sustained, just just a few min. O2 weaned to 2 L/min. Uop good, dark amilcar. BP 100/75 without norepinephrine, RIJ TLC. During the procedure, she had an area of hypervascularity noted in the posterior bladder wall, but no biopsy was taken for concerns of possible UTI and patient's unstable condition. She is tolerating catheter and stent at this time. She quit tobacco in 2017, smoked 1 ppd or less. Lives alone. Has a cat. 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 Was working up until her admission. . DATA * 09/01/22 CXR ?Right internal jugular central venous catheter ending with its tip in the distal superior vena cava. No pneumothorax. 2. Mild atelectasis of the lung bases. * 08/31/22 abd-pelvis CT : 4 mm mass in proximal right ureter with mild right hydronephrosis. The mass may be a hematoma, stone, or neoplasm. 2. Bilateral nonobstructing kidney stones. 3. 8.0 cm liver mass, which may be benign or malignan
[2022-09-01 17:40] LABS: Glucose Point of Care 193 mg/dl (65-105)
[2022-09-01 18:22] LABS: Lactic Acid Reflex 2.2 mmol/L (0.7-2.0)
[2022-09-01 18:23] LABS: Anion Gap 15 mmol/L (8-16); Blood Urea Nitrogen 34 mg/dL (7-17); Calcium 7.3 mg/dL (8.4-10.2); Carbon Dioxide 19 mmol/L (22-30); Chloride 104 mmol/L (98-107); Estimated CRCL calculation 38 ml/min; Estimated Glomerular Filt Rate 38; Glucose 243 mg/dL (65-110); Potassium 3.4 mmol/L (3.4-5.0); Sodium 138 mmol/L (137-145)
[2022-09-01] MEDS: KCL 40 MEQ/WATER 100 ML 100 ML 25 ML IVPB (18:42)
[2022-09-01] MEDS: MORPHINE SULFATE (*CRX) 4 MG/ML INJ IV PUSH (21:44)
[2022-09-01 23:27] LABS: Glucose Point of Care 201 mg/dl (65-105)
[2022-09-02] VITALS (19 sets, daily range): BP systolic 106–136; BP diastolic 63–93; PULSE 86–111; RESP 15–27; TEMP 36.6–36.9; O2SAT 91–99
[2022-09-02] MEDS: MORPHINE SULFATE (*CRX) 4 MG/ML INJ IV PUSH (02:35)
[2022-09-02] MEDS: CENTRAL LINE FLUSH 10 ML IV PUSH ×4 (05:33→22:44)
[2022-09-02 05:37] LABS: Hematocrit 32.4 % (37.0-47.0); Hemoglobin 10.4 g/dL (12.0-15.0); Immature Platelet Fraction Pct 4.6 % (0.9-11.2); Mean Corpuscular HGB Conc 32.1 g/dl (32-36); Mean Corpuscular Volume 87.3 fl (80-100); Mean Platelet Volume 11.1 fl (7.4-10.4); Platelet Count Result 82 k/mm3 (150-375); Red Blood Count 3.71 M/mm3 (4.2-5.4); Red Cell Distribution Width 15.7 % (11.5-14.5); White Blood Count 5.7 K/mm3 (4.5-10.0)
[2022-09-02 05:44] LABS: Anion Gap 9 mmol/L (8-16); Blood Urea Nitrogen 33 mg/dL (7-17); Calcium 7.6 mg/dL (8.4-10.2); Carbon Dioxide 20 mmol/L (22-30); Chloride 108 mmol/L (98-107); Estimated CRCL calculation 52 ml/min; Estimated Glomerular Filt Rate 50; Glucose 204 mg/dL (65-110); Magnesium 2.4 mg/dL (1.6-2.3); Potassium 4.2 mmol/L (3.4-5.0); Sodium 137 mmol/L (137-145)
[2022-09-02] MEDS: ENOXAPARIN 30 MG/0.3 ML SYRINGE SUB-Q (08:36)
[2022-09-02] MEDS: SERTRALINE HCL 50 MG TABLET 100 MG PO (08:37)
[2022-09-02] MEDS: INSULIN GLARGINE (*BKC) 100 UNITS/ML 40 UNITS SUB-Q ×2 (08:46→17:38)
[2022-09-02 08:51] LABS: Glucose Point of Care 187 mg/dl (65-105)
[2022-09-02] MEDS: ACETAMINOPHEN 325 MG TABLET 650 MG PO (08:51)
[2022-09-02] MEDS: HYDROcodone/acetaminophen (*CRX) 5-325 MG TABLET 1 TAB PO ×3 (10:21→22:43)
[2022-09-02] MEDS: LACTATED RINGERS 1,000 ML 100 ML IV CONT ×2 (10:24→22:44)
[2022-09-02 10:38] LABS: Hemoglobin A1C 10.8 % (<5.7)
--- NOTE | 2022-09-02 10:47 | PM.IMPN ---
Progress Note: A&P Assessment and Plan (1) Sepsis with acute hypoxic respiratory failure: Code(s): A41.9 - Sepsis, unspecified organism; R65.20 - Severe sepsis without septic shock; J96.01 - Acute respiratory failure with hypoxia Status: Acute Assessment and Plan: improving early goal directed therapy ongoing broad-spectrum antibiotics cultures in progress (2) Sepsis: Code(s): A41.9 - Sepsis, unspecified organism Status: Acute Assessment and Plan: likely secondary to urinary tract infection (3) Ureteral obstruction: Code(s): N13.5 - Crossing vessel and stricture of ureter without hydronephrosis Status: Acute Assessment and Plan: status post stent placement (4) UTI (urinary tract infection): Code(s): N39.0 - Urinary tract infection, site not specified Status: Acute Assessment and Plan: on broad-spectrum antibiotics (5) Liver mass: Code(s): R16.0 - Hepatomegaly, not elsewhere classified Status: Acute Assessment and Plan: MRI when clinically stable (6) Ureteral obstruction, right: Code(s): N13.5 - Crossing vessel and stricture of ureter without hydronephrosis Status: Acute Assessment and Plan: status post post stent placement (7) MOISES (acute kidney injury): Code(s): N17.9 - Acute kidney failure, unspecified Status: Acute Assessment and Plan: no prior values for comparison will continue to monitor receiving IV fluids (8) Type 2 diabetes mellitus: Code(s): E11.9 - Type 2 diabetes mellitus without complications Status: Acute Assessment and Plan: holding the Jardiance continue Lantus continue lisinopril (9) Thrombocytopenia: Code(s): D69.6 - Thrombocytopenia, unspecified Status: Acute Assessment and Plan: holding heparin products continue to monitor Subjective Date/time seen: 09/02/22 10:47 no new complaints, appears to have more energy today Exam Const: General: comfortable, no acute distress, well developed, alert, awake, patient obtunded and average body habitus Nutritional Appearance: average body habitus Orientation/consciousness: oriented to person and patient obtunded HENMT: Head: normal to inspection, normocephalic and atraumatic Ears: hearing grossly normal bilaterally Face/Nose/Sinus: normal facial exam Face and sinus: normal facial exam Eyes: General: appearance normal, both eyes and all related structures Pupils: Equal, round and reactive pupils present EOM: EOMs intact bilaterally Neck: Neck: full ROM, no lymphadenopathy and no JVD Thyroid: thyroid normal Lymphatic: no lymphadenopathy noted Resp: Effort & Inspection: normal respiratory effort and able to speak in complete sentences Auscultation: clear to auscultation bilaterally Cardio: Jugular venous distension: no JVD Rate: regular rate Rhythm: regular rhythm Heart sounds: S1 normal heart sound present and S2 normal heart sound present : General: Yes deferred Skin: Rashes: no rashes Wounds: no wounds Neuro: General: oriented to person, CN's II-XI intact bilaterally, patient obtunded and Unable to assess gait Cranial nerves: Yes CN's II-XII intact bilaterally and Yes Equal, round and reactive pupils present Cognition (Neuro): abnormal cognition ( status post procedure, sepsis.) Speech: normal speech Gait exam (Neuro): Unable to assess gait Motor exam (neuro): 5/5 motor strength present throughout Extrem: General: normal to inspection, full ROM, no joint enlargement and no pedal edema Objective Data Vital Signs Vital Signs: Vital Signs - 24 hr 09/01/22 12:00 09/01/22 12:00 09/01/22 12:00 Temperature Pulse Rate 106 H 101 H Respiratory Rate 18 Blood Pressure 108/65 Pulse Oximetry 95 96 Oxygen Delivery Nasal Cannula Oxygen Flow Rate 2 09/01/22 13:13 09/01/22 13:15 09/01/22 13:16 Temperature Pulse Rate 102 H
[2022-09-02 13:10] LABS: Glucose Point of Care 231 mg/dl (65-105)
[2022-09-02] MEDS: INSULIN ASPART (*BKC) 100 UNITS/ML SUB-Q ×2 (13:12)
[2022-09-02] MEDS: ONDANSETRON INJ 4 MG/2 ML VIAL IV PUSH ×2 (17:33→22:43)
[2022-09-02 17:39] LABS: Glucose Point of Care 144 mg/dl (65-105)
--- NOTE | 2022-09-02 19:01 | WPDINTPN ---
Subjective Date/time seen: 09/02/22 19:01 Objective Data Vital Signs Vital Signs: Vital Signs - 24 hr 09/01/22 21:04 09/01/22 20:00 09/01/22 20:00 Temperature Pulse Rate 120 H 111 H Respiratory Rate Blood Pressure 148/79 H Pulse Oximetry 98 Oxygen Delivery Nasal Cannula Oxygen Flow Rate 2 09/01/22 20:00 09/01/22 22:00 09/01/22 22:00 Temperature 37.5 C Pulse Rate 116 H 110 H 110 H Respiratory Rate 26 H 17 Blood Pressure 120/70 105/59 L Pulse Oximetry 96 98 Oxygen Delivery Oxygen Flow Rate 09/01/22 23:28 09/02/22 00:00 09/02/22 00:00 Temperature 36.4 C L Pulse Rate 107 H Respiratory Rate 18 Blood Pressure 123/73 Pulse Oximetry 99 98 Oxygen Delivery Nasal Cannula Oxygen Flow Rate 2 09/02/22 00:00 09/02/22 02:00 09/02/22 02:00 Temperature Pulse Rate 106 H 110 H 111 H Respiratory Rate 21 H Blood Pressure 126/80 Pulse Oximetry 97 Oxygen Delivery Oxygen Flow Rate 09/02/22 04:00 09/02/22 04:00 09/02/22 04:00 Temperature Pulse Rate 106 H 104 H Respiratory Rate 18 Blood Pressure 124/70 Pulse Oximetry 96 96 Oxygen Delivery Nasal Cannula Oxygen Flow Rate 2 09/02/22 05:33 09/02/22 06:00 09/02/22 06:00 Temperature 36.8 C Pulse Rate 102 H 103 H Respiratory Rate 17 Blood Pressure 135/79 Pulse Oximetry 94 Oxygen Delivery Oxygen Flow Rate 09/02/22 08:00 09/02/22 08:00 09/02/22 08:00 Temperature 36.6 C Pulse Rate 98 98 Respiratory Rate 27 H Blood Pressure 136/78 Pulse Oximetry 94 94 Oxygen Delivery Room Air Oxygen Flow Rate 09/02/22 10:00 09/02/22 10:00 09/02/22 11:50 Temperature Pulse Rate 90 90 Respiratory Rate 24 H Blood Pressure 106/63 Pulse Oximetry 95 94 Oxygen Delivery Room Air Oxygen Flow Rate 09/02/22 12:00 09/02/22 12:00 09/02/22 16:00 Temperature 36.8 C Pulse Rate 92 92 88 Respiratory Rate 20 Blood Pressure 111/76 Pulse Oximetry 93 Oxygen Delivery Oxygen Flow Rate 09/02/22 16:00 Temperature 36.6 C Pulse Rate 86 Respiratory Rate 16 Blood Pressure 126/76 Pulse Oximetry 94 Oxygen Delivery Oxygen Flow Rate Intake/Output Intake/Output: Intake & Output 08/30/22 08/31/22 09/01/22 09/02/22 23:59 23:59 23:59 23:59 Intake Total 2700 3679 1900 Output Total 240 1035 1350 Balance 2460 2644 550 Meds/Results Medications: Active Medications Generic Name Dose Route Start Last Admin Trade Name Freq PRN Reason Stop Dose Admin Acetaminophen 650 mg 08/31/22 22:26 09/02/22 08:51 Acetaminophen 325 Mg Tablet PO 650 mg Q4H PRN Administration Mild Pain (1-3) or Fever Hydrocodone Bitart/Acetaminophen 1 tab 09/02/22 10:04 09/02/22 17:33 Hydrocodone/Acetaminophen (*Crx) 5-325 Mg Tablet PO 1 tab Q6H PRN Administration Pain Rated 4-6 Al Hydrox/Mg Hydrox/Simethicone 30 ml 08/31/22 22:26 Mag Hydrox/Al Hydrox/Simeth 30 Ml Udc PO QID PRN Dyspepsia Buspirone HCl 10 mg 09/01/22 05:26 Buspirone Hcl 10 Mg Tablet PO Q12H PRN Anxiety Dextrose 12.5 gm 08/31/22 22:50 Dextrose 50% 25 Gm/50 Ml Syringe IV PUSH PRN PRN Hypoglycemia Protocol Enoxaparin Sodium 30 mg 09/01/22 09:00 09/02/22 08:36 Enoxaparin 30 Mg/0.3 Ml Syringe SUB-Q 30 mg DAILY OLGA Administration Glucagon 1 mg 08/31/22 22:50 Glucagon For Inj 1 Mg Vial IM PRN PRN Hypoglycemia Protocol Glucose 15 gm 08/31/22 22:50 Glucose Oral Gel 15 Gm Of Glucse In 37.5 Gm Tube PO PRN PRN Hypoglycemia Protocol Vancomycin HCl 1,250 mg in 250 mls @ 200 mls/hr 08/31/22 23:00 09/02/22 12:56 Vancomycin 1,250 Mg/D5w 250 Ml IVPB Infused Q36H OLGA Infusion Piperacillin Sod/Tazobactam Sod 2.25 gm in 50 mls @ 100 mls/hr 08/31/22 23:00 09/02/22 18:59 Zosyn 2.25 Gm/D5w 50 Ml IVPB Infused Q6H OLGA Infusion Dextrose 1,000 mls @ 100 mls/hr 08/31
--- NOTE | 2022-09-02 19:14 | PC.NURSE ---
Today 09/02/22 from 0800 to 1900, all the medications given to this patient, were given by me, Yumiko Freedman RN, BSN. NOT by Jazmin Gallegos as charted.
[2022-09-02 22:54] LABS: Glucose Point of Care 167 mg/dl (65-105)
[2022-09-03] VITALS (63 sets, daily range): BP systolic 106–153; BP diastolic 71–100; PULSE 81–103; RESP 14–33; TEMP 36.4–36.9; O2SAT 85–100
[2022-09-03] MEDS: CENTRAL LINE FLUSH 10 ML IV PUSH ×4 (05:55→21:48)
[2022-09-03 06:16] LABS: Hematocrit 30.8 % (37.0-47.0); Hemoglobin 9.8 g/dL (12.0-15.0); Immature Platelet Fraction Pct 6.3 % (0.9-11.2); Mean Corpuscular HGB Conc 31.8 g/dl (32-36); Mean Corpuscular Hemoglobin 27.8 pg (26-34); Mean Corpuscular Volume 87.5 fl (80-100); Platelet Count Result 96 k/mm3 (150-375); Red Blood Count 3.52 M/mm3 (4.2-5.4); White Blood Count 5.6 K/mm3 (4.5-10.0)
[2022-09-03 06:19] LABS: Anion Gap 8 mmol/L (8-16); Blood Urea Nitrogen 29 mg/dL (7-17); Carbon Dioxide 21 mmol/L (22-30); Chloride 107 mmol/L (98-107); Estimated CRCL calculation 59 ml/min; Estimated Glomerular Filt Rate 56; Glucose 141 mg/dL (65-110); Magnesium 2.3 mg/dL (1.6-2.3); Potassium 3.7 mmol/L (3.4-5.0); Sodium 136 mmol/L (137-145)
[2022-09-03] MEDS: LACTATED RINGERS 1,000 ML 100 ML IV CONT ×2 (08:31→22:38)
[2022-09-03] MEDS: SERTRALINE HCL 50 MG TABLET 100 MG PO (08:32)
[2022-09-03] MEDS: ENOXAPARIN 30 MG/0.3 ML SYRINGE SUB-Q (08:32)
[2022-09-03] MEDS: HYDROcodone/acetaminophen (*CRX) 5-325 MG TABLET 1 TAB PO ×3 (08:33→17:29)
[2022-09-03] MEDS: INSULIN GLARGINE (*BKC) 100 UNITS/ML 40 UNITS SUB-Q (08:35)
[2022-09-03] MEDS: INSULIN ASPART (*BKC) 100 UNITS/ML SUB-Q (08:48)
[2022-09-03 08:52] LABS: Glucose Point of Care 146 mg/dl (65-105)
--- NOTE | 2022-09-03 11:36 | PM.IMPN ---
Progress Note: A&P Assessment and Plan (1) Sepsis with acute hypoxic respiratory failure: Code(s): A41.9 - Sepsis, unspecified organism; R65.20 - Severe sepsis without septic shock; J96.01 - Acute respiratory failure with hypoxia Status: Acute Assessment and Plan: improving Continue IV antibiotics (2) Sepsis: Code(s): A41.9 - Sepsis, unspecified organism Status: Acute Assessment and Plan: likely secondary to urinary tract infection present on admission (3) Ureteral obstruction: Code(s): N13.5 - Crossing vessel and stricture of ureter without hydronephrosis Status: Acute Assessment and Plan: status post stent placement. Will need to follow up with Urology regarding this and also possible bladder CA. (4) UTI (urinary tract infection): Code(s): N39.0 - Urinary tract infection, site not specified Status: Acute Assessment and Plan: on broad-spectrum antibiotics (5) Liver mass: Code(s): R16.0 - Hepatomegaly, not elsewhere classified Status: Acute Assessment and Plan: MRI ordered (6) Ureteral obstruction, right: Code(s): N13.5 - Crossing vessel and stricture of ureter without hydronephrosis Status: Acute Assessment and Plan: status post post stent placement (7) MOISES (acute kidney injury): Code(s): N17.9 - Acute kidney failure, unspecified Status: Acute Assessment and Plan: no prior values for comparison will continue to monitor receiving IV fluids (8) Type 2 diabetes mellitus: Code(s): E11.9 - Type 2 diabetes mellitus without complications Status: Acute Assessment and Plan: holding the Jardiance continue Lantus continue lisinopril (9) Thrombocytopenia: Code(s): D69.6 - Thrombocytopenia, unspecified Status: Acute Assessment and Plan: holding heparin products continue to monitor - platelet count stable Subjective Date/time seen: 09/03/22 11:36 still complaining of right upper quadrant pain. Sepsis is much improved. Exam Const: General: comfortable, no acute distress, well developed, alert, awake, patient obtunded and average body habitus Nutritional Appearance: average body habitus Orientation/consciousness: oriented to person and patient obtunded HENMT: Head: normal to inspection, normocephalic and atraumatic Ears: hearing grossly normal bilaterally Face/Nose/Sinus: normal facial exam Face and sinus: normal facial exam Eyes: General: appearance normal, both eyes and all related structures Pupils: Equal, round and reactive pupils present EOM: EOMs intact bilaterally Neck: Neck: full ROM, no lymphadenopathy and no JVD Thyroid: thyroid normal Lymphatic: no lymphadenopathy noted Resp: Effort & Inspection: normal respiratory effort and able to speak in complete sentences Auscultation: clear to auscultation bilaterally Cardio: Jugular venous distension: no JVD Rate: regular rate Rhythm: regular rhythm Heart sounds: S1 normal heart sound present and S2 normal heart sound present : General: Yes deferred Skin: Rashes: no rashes Wounds: no wounds Neuro: General: oriented to person, CN's II-XI intact bilaterally, patient obtunded and Unable to assess gait Cranial nerves: Yes CN's II-XII intact bilaterally and Yes Equal, round and reactive pupils present Cognition (Neuro): abnormal cognition ( status post procedure, sepsis.) Speech: normal speech Gait exam (Neuro): Unable to assess gait Motor exam (neuro): 5/5 motor strength present throughout Extrem: General: normal to inspection, full ROM, no joint enlargement and no pedal edema Objective Data Vital Signs Vital Signs: Vital Signs - 24 hr 09/02/22 11:50 09/02/22 12:00 09/02/22 12:00 Temperature 98.2 F Pulse Rate 92 92 Respiratory Rate 20 Blood Pressure 111/76 Pulse Oximetry 94 93 Oxygen Delivery Room Air 09/02/22 16:00 09/02/22 16:
[2022-09-03 11:47] LABS: Glucose Point of Care 155 mg/dl (65-105)
[2022-09-03 17:27] LABS: Glucose Point of Care 94 mg/dl (65-105)
[2022-09-03] MEDS: SENNA/DOCUSATE SODIUM TABLET 1 TAB PO (21:44)
[2022-09-03 21:50] LABS: Glucose Point of Care 98 mg/dl (65-105)
--- NOTE | 2022-09-03 22:15 | PC.NURSE ---
This patient, Verona Frausto, was transferred to [facility] on 09/03/22 at 2215. Personal belongings sent with patient. Report given to [place] Bahena. Appropriate documentation sent with patient.
--- NOTE | 2022-09-03 22:40 | PC.NURSE ---
Transfer received at 2220 via wheelchair; Report from W[place] Bedolla.
[2022-09-03 23:19] LABS: Vancomycin Trough < 5.0 ug/mL (10.0-20.0)
[2022-09-04 00:45] VITALS: BP 151/85; PULSE 87; RESP 21; TEMP 36.7; O2SAT 100
[2022-09-04] MEDS: HYDROcodone/acetaminophen (*CRX) 5-325 MG TABLET 1 TAB PO ×3 (01:25→21:43)
[2022-09-04 07:18] VITALS: BP 133/68; PULSE 80; RESP 20; TEMP 36.3; O2SAT 98
[2022-09-04 08:37] LABS: Glucose Point of Care 72 mg/dl (65-105)
[2022-09-04] MEDS: busPIRone HCL 10 MG TABLET PO (09:36)
[2022-09-04] MEDS: SERTRALINE HCL 50 MG TABLET 100 MG PO (09:36)
[2022-09-04] MEDS: LACTATED RINGERS 1,000 ML 100 ML IV CONT ×2 (11:19→21:19)
[2022-09-04] MEDS: INSULIN GLARGINE (*BKC) 100 UNITS/ML 10 UNITS SUB-Q (11:22)
[2022-09-04] MEDS: INSULIN ASPART (*BKC) 100 UNITS/ML SUB-Q ×2 (11:31→17:55)
[2022-09-04 11:37] LABS: Glucose Point of Care 118 mg/dl (65-105)
--- NOTE | 2022-09-04 11:40 | PM.IMPN ---
Progress Note: A&P Assessment and Plan (1) Sepsis with acute hypoxic respiratory failure: Code(s): A41.9 - Sepsis, unspecified organism; R65.20 - Severe sepsis without septic shock; J96.01 - Acute respiratory failure with hypoxia Status: Acute Assessment and Plan: improving Continue IV antibiotics cultures reviewed (2) Sepsis: Code(s): A41.9 - Sepsis, unspecified organism Status: Acute Assessment and Plan: likely secondary to urinary tract infection present on admission (3) Ureteral obstruction: Code(s): N13.5 - Crossing vessel and stricture of ureter without hydronephrosis Status: Acute Assessment and Plan: status post stent placement. Will need to follow up with Urology regarding this and also possible bladder CA. (4) UTI (urinary tract infection): Code(s): N39.0 - Urinary tract infection, site not specified Status: Acute Assessment and Plan: on broad-spectrum antibiotics (5) Liver mass: Code(s): R16.0 - Hepatomegaly, not elsewhere classified Status: Acute Assessment and Plan: MRI ordered possible hepatocellular carcinoma. Recommended biopsy. When patient is more stable and sepsis is treated she can be set up for ultrasound-guided biopsy (6) Ureteral obstruction, right: Code(s): N13.5 - Crossing vessel and stricture of ureter without hydronephrosis Status: Acute Assessment and Plan: status post post stent placement (7) MOISES (acute kidney injury): Code(s): N17.9 - Acute kidney failure, unspecified Status: Acute Assessment and Plan: no prior values for comparison will continue to monitor receiving IV fluids (8) Type 2 diabetes mellitus: Code(s): E11.9 - Type 2 diabetes mellitus without complications Status: Acute Assessment and Plan: holding the Jardiance continue Lantus continue lisinopril (9) Thrombocytopenia: Code(s): D69.6 - Thrombocytopenia, unspecified Status: Acute Assessment and Plan: holding heparin products continue to monitor - platelet count stable Subjective Date/time seen: 09/04/22 11:40 feeling a little better Exam Const: General: comfortable, no acute distress, well developed, alert, awake, patient obtunded and average body habitus Nutritional Appearance: average body habitus Orientation/consciousness: oriented to person and patient obtunded HENMT: Head: normal to inspection, normocephalic and atraumatic Ears: hearing grossly normal bilaterally Face/Nose/Sinus: normal facial exam Face and sinus: normal facial exam Eyes: General: appearance normal, both eyes and all related structures Pupils: Equal, round and reactive pupils present EOM: EOMs intact bilaterally Neck: Neck: full ROM, no lymphadenopathy and no JVD Thyroid: thyroid normal Lymphatic: no lymphadenopathy noted Resp: Effort & Inspection: normal respiratory effort and able to speak in complete sentences Auscultation: clear to auscultation bilaterally Cardio: Jugular venous distension: no JVD Rate: regular rate Rhythm: regular rhythm Heart sounds: S1 normal heart sound present and S2 normal heart sound present : General: Yes deferred Skin: Rashes: no rashes Wounds: no wounds Neuro: General: oriented to person, CN's II-XI intact bilaterally, patient obtunded and Unable to assess gait Cranial nerves: Yes CN's II-XII intact bilaterally and Yes Equal, round and reactive pupils present Cognition (Neuro): abnormal cognition ( status post procedure, sepsis.) Speech: normal speech Gait exam (Neuro): Unable to assess gait Motor exam (neuro): 5/5 motor strength present throughout Extrem: General: normal to inspection, full ROM, no joint enlargement and no pedal edema Objective Data Vital Signs Vital Signs: Vital Signs - 24 hr 09/03/22 12:00 09/03/22 16:00 09/03/22 20:00 Temperature 97.6 F Pulse Rate 102 H 85 96
[2022-09-04 12:13] LABS: Hematocrit 32.3 % (37.0-47.0); Hemoglobin 10.5 g/dL (12.0-15.0); Immature Platelet Fraction Pct 6.7 % (0.9-11.2); Mean Corpuscular HGB Conc 32.5 g/dl (32-36); Mean Corpuscular Hemoglobin 28.2 pg (26-34); Mean Corpuscular Volume 86.6 fl (80-100); Mean Platelet Volume 11.1 fl (7.4-10.4); Platelet Count Result 122 k/mm3 (150-375); Red Blood Count 3.73 M/mm3 (4.2-5.4); Red Cell Distribution Width 16.2 % (11.5-14.5); White Blood Count 5.7 K/mm3 (4.5-10.0)
[2022-09-04 12:24] LABS: Potassium 3.4 mmol/L (3.4-5.0)
[2022-09-04 12:32] LABS: Anion Gap 10 mmol/L (8-16); Blood Urea Nitrogen 22 mg/dL (7-17); Carbon Dioxide 22 mmol/L (22-30); Chloride 104 mmol/L (98-107); Estimated CRCL calculation 63 ml/min; Estimated Glomerular Filt Rate > 60; Glucose 110 mg/dL (65-110); Magnesium 1.8 mg/dL (1.6-2.3); Sodium 136 mmol/L (137-145)
[2022-09-04 14:00] VITALS: BP 153/79; PULSE 84; RESP 24; TEMP 35.9; O2SAT 93
[2022-09-04] MEDS: cefTRIAXone 2 GM in SODIUM CHLORIDE 0.9% IV 100 ML 200 ML IVPB (15:36)
[2022-09-04 16:47] LABS: Glucose Point of Care 85 mg/dl (65-105)
[2022-09-04] MEDS: GLUCOSE ORAL GEL 15 GM OF GLUCSE IN 37.5 GM TUBE PO (21:40)
[2022-09-04 22:00] VITALS: BP 176/83; PULSE 99; RESP 23; TEMP 36.6; O2SAT 91
[2022-09-04 22:11] LABS: Glucose Point of Care 67 mg/dl (65-105)
[2022-09-04 22:11] LABS: Glucose Point of Care 107 mg/dl (65-105)
[2022-09-04] MEDS: lisinopriL 10 MG TABLET 30 MG PO (22:30)
[2022-09-04 23:09] LABS: Glucose Point of Care 130 mg/dl (65-105)
--- NOTE | 2022-09-04 23:51 | PC.NURSE ---
Pt had a hypoglycemic event this shift. Pt's blood sugar was 67 Provider notified. Pt was given oral glucose per protocol. Pt's blood sugar came up to 107 at 15 minutes and 130 at one hour. Pt had elevated blood pressure of 177/84, provider notified and was given [address] Song. Pt stated that she doesn't normally take lisinopril which is a home med because it gives her a headache. Pt educated that it could be a side effect of it bringing her bp down and pt agreed to try it again. Pt participated and contributed in plan of care. Pt had complaints of back ache and headache and was treated with norco. Will continue to monitor pt.
[2022-09-05] VITALS: BP 130/68
[2022-09-05 06:00] VITALS: BP 154/82; PULSE 86; RESP 18; TEMP 36.2; O2SAT 92
[2022-09-05 07:56] LABS: Glucose Point of Care 69 mg/dl (65-105)
[2022-09-05] MEDS: HYDROcodone/acetaminophen (*CRX) 5-325 MG TABLET 1 TAB PO ×2 (08:28→21:21)
[2022-09-05] MEDS: SERTRALINE HCL 50 MG TABLET 100 MG PO (08:29)
[2022-09-05] MEDS: ONDANSETRON INJ 4 MG/2 ML VIAL IV PUSH (08:37)
[2022-09-05] MEDS: LACTATED RINGERS 1,000 ML 100 ML IV CONT (08:37)
--- NOTE | 2022-09-05 10:41 | PM.IMPN ---
Progress Note: A&P Assessment and Plan (1) Sepsis with acute hypoxic respiratory failure: Code(s): A41.9 - Sepsis, unspecified organism; R65.20 - Severe sepsis without septic shock; J96.01 - Acute respiratory failure with hypoxia Status: Acute Assessment and Plan: improving Continue IV antibiotics cultures reviewed Positive blood cultures for E coli and Proteus. Positive urine culture as well (2) Sepsis: Code(s): A41.9 - Sepsis, unspecified organism Status: Acute Assessment and Plan: likely secondary to urinary tract infection present on admission much improved. Will decrease IV fluids. Vital signs look stable. (3) Ureteral obstruction: Code(s): N13.5 - Crossing vessel and stricture of ureter without hydronephrosis Status: Acute Assessment and Plan: status post stent placement. Will need to follow up with Urology regarding this and also possible bladder CA. (4) UTI (urinary tract infection): Code(s): N39.0 - Urinary tract infection, site not specified Status: Acute Assessment and Plan: on broad-spectrum antibiotics (5) Liver mass: Code(s): R16.0 - Hepatomegaly, not elsewhere classified Status: Acute Assessment and Plan: MRI ordered possible hepatocellular carcinoma. Recommended biopsy. When patient is more stable and sepsis is treated she can be set up for ultrasound-guided biopsy (6) Ureteral obstruction, right: Code(s): N13.5 - Crossing vessel and stricture of ureter without hydronephrosis Status: Acute Assessment and Plan: status post post stent placement (7) MOISES (acute kidney injury): Code(s): N17.9 - Acute kidney failure, unspecified Status: Acute Assessment and Plan: kidney function has improved. (8) Type 2 diabetes mellitus: Code(s): E11.9 - Type 2 diabetes mellitus without complications Status: Acute Assessment and Plan: holding the Jardiance continue Lantus continue lisinopril Blood sugars well controlled (9) Thrombocytopenia: Code(s): D69.6 - Thrombocytopenia, unspecified Status: Acute Assessment and Plan: platelet count improved Subjective Date/time seen: 09/05/22 10:41 patient is starting to eat a little bit more. Denies any new complaints. She feels more energetic today. Pain is better controlled as well. Still having some pain over her right upper quadrant Exam Const: General: comfortable, no acute distress, well developed, alert, awake, patient obtunded and average body habitus Nutritional Appearance: average body habitus Orientation/consciousness: oriented to person and patient obtunded HENMT: Head: normal to inspection, normocephalic and atraumatic Ears: hearing grossly normal bilaterally Face/Nose/Sinus: normal facial exam Face and sinus: normal facial exam Eyes: General: appearance normal, both eyes and all related structures Pupils: Equal, round and reactive pupils present EOM: EOMs intact bilaterally Neck: Neck: full ROM, no lymphadenopathy and no JVD Thyroid: thyroid normal Lymphatic: no lymphadenopathy noted Resp: Effort & Inspection: normal respiratory effort and able to speak in complete sentences Auscultation: clear to auscultation bilaterally Cardio: Jugular venous distension: no JVD Rate: regular rate Rhythm: regular rhythm Heart sounds: S1 normal heart sound present and S2 normal heart sound present : General: Yes deferred Skin: Rashes: no rashes Wounds: no wounds Neuro: General: oriented to person, CN's II-XI intact bilaterally, patient obtunded and Unable to assess gait Cranial nerves: Yes CN's II-XII intact bilaterally and Yes Equal, round and reactive pupils present Cognition (Neuro): abnormal cognition ( status post procedure, sepsis.) Speech: normal speech Gait exam (Neuro): Unable to assess gait Motor exam (neuro): 5/5 motor strength present throug
[2022-09-05 11:24] LABS: Glucose Point of Care 83 mg/dl (65-105)
[2022-09-05 13:56] VITALS: BP 152/62; PULSE 79; RESP 16; TEMP 35.9; O2SAT 96
[2022-09-05] MEDS: cefTRIAXone 2 GM in SODIUM CHLORIDE 0.9% IV 100 ML 200 ML IVPB (14:26)
[2022-09-05] MEDS: lisinopriL 10 MG TABLET 30 MG PO ×2 (14:27→22:51)
--- NOTE | 2022-09-05 14:42 | PCPTNOTE ---
The patient treatment was not able to be completed on this date due to patient having a bad headache and wanted to rest. Will plan to continue treatment per plan of care. RN notified.
[2022-09-05 16:56] LABS: Glucose Point of Care 95 mg/dl (65-105)
[2022-09-05 20:03] LABS: Glucose Point of Care 127 mg/dl (65-105)
[2022-09-05 21:00] VITALS: BP 161/82; PULSE 87; RESP 22; TEMP 36.1; O2SAT 92
[2022-09-05 22:10] VITALS: BP 150/71
--- NOTE | 2022-09-05 22:22 | PC.NURSE ---
Pt reports that she is having back and head pain. Pt treated with pain medication. Pt lost IV access new IV will be placed once pt headache is better per pt request. Pt lantus held due to unstable blood sugars. Charge nurse notified and provider notified. Provider is now holding insulin and lantus. Pt blood pressure is elevated and will be treated with lisinopril. Pt is an independent pt. Pt participated and contributed to plan of care for the shift. Will continue to monitor pt.
[2022-09-06 06:00] VITALS: BP 146/76; PULSE 85; RESP 20; TEMP 36; O2SAT 91
[2022-09-06 07:22] LABS: Anion Gap 11 mmol/L (8-16); Blood Urea Nitrogen 12 mg/dL (7-17); Calcium 7.6 mg/dL (8.4-10.2); Carbon Dioxide 24 mmol/L (22-30); Chloride 103 mmol/L (98-107); Estimated CRCL calculation 70 ml/min; Estimated Glomerular Filt Rate > 60; Glucose 124 mg/dL (65-110); Potassium 3.2 mmol/L (3.4-5.0); Sodium 138 mmol/L (137-145)
[2022-09-06 08:19] LABS: Glucose Point of Care 114 mg/dl (65-105)
[2022-09-06] MEDS: busPIRone HCL 10 MG TABLET PO (08:57)
[2022-09-06] MEDS: lisinopriL 10 MG TABLET 30 MG PO (08:57)
[2022-09-06] MEDS: SERTRALINE HCL 50 MG TABLET 100 MG PO (08:57)
[2022-09-06] MEDS: POTASSIUM CHLORIDE 20 MEQ TABLET PO (08:57)
[2022-09-06] MEDS: ENOXAPARIN 40 MG/0.4 ML SYRINGE SUB-Q (08:58)
[2022-09-06 11:15] VITALS: BMI 34.2
[2022-09-06 11:33] LABS: Glucose Point of Care 183 mg/dl (65-105)
--- NOTE | 2022-09-06 13:13 | WPDUROPN2 ---
Progress Note: A&P Assessment and Plan (1) Bladder mass: Code(s): N32.89 - Other specified disorders of bladder Status: Acute Assessment and Plan: Will plan to do a cystoscopy, TURBT, and right stent exchange as an outpatient when infection resolves and she is more stable in a few weeks. (2) MOISES (acute kidney injury): Code(s): N17.9 - Acute kidney failure, unspecified Status: Acute Assessment and Plan: Resolved, creatinine is 0.80. (3) Sepsis: Code(s): A41.9 - Sepsis, unspecified organism Status: Acute Assessment and Plan: Blood cultures grew Proteus and E-Coli. Urine Cultures grew Proteus, she remains on IV Ceftriaxone which is culture sensitive. (4) UTI (urinary tract infection): Code(s): N39.0 - Urinary tract infection, site not specified Status: Acute Assessment and Plan: Continue Ceftriaxone, repeat urine culture ordered today. If negative and she remains in the hospital, we may try to coordinate her procedure for her TURBT/stent exchange while still in house. (5) Ureteral obstruction, right: Code(s): N13.5 - Crossing vessel and stricture of ureter without hydronephrosis Status: Acute Assessment and Plan: right stent in place and draining, MRI shows no hydronephrosis. (6) Renal hematoma: Code(s): S37.019A - Minor contusion of unspecified kidney, initial encounter Status: Acute Assessment and Plan: Right subcapsular, reviewed MRI with Dr. Coats, no concerns at this time. No need for surgical intervention or drainage of hematoma. She is having ongoing flank pain but seems to tolerate it. I explained to her that it may take weeks to resolve and we should repeat a CT in 4-6 weeks to ensure resolution. I also suspect her abdominal pain and flank pain may be d/t her stent. Ok to take Oxybutynin for stent pain. Subjective Subjective Date/Time Seen: 09/06/22 13:13 POD #6 Cystoscopy, right retrograde pyelogram, right stent placement by Dr. Cross Patient is improving and is now in a medicine bed and out of the ICU. She is ambulatory in her room, tolerating diet, but c/o abdominal pain, right flank pain and dysuria. She is afebrile but her MRI of the abdomen yesterday shows a subcapsular hematoma in the right kidney. Post Op day: 6 Review of Systems Cardiovascular: Cardiovascular: Denies chest pain Respiratory: Respiratory: Reports no additional respiratory complaints Gastrointestinal: Gastrointestinal: Reports abdominal pain, Reports bloating, Denies constipation, Denies excessive flatus, Denies nausea and Denies vomiting Genitourinary: Genitourinary: Denies nocturia, Reports dysuria, Reports flank pain, Denies urinary hesitancy and Denies urinary urgency Exam Const: General: cooperative, comfortable and alert Resp: Effort & Inspection: normal respiratory effort Cardio: Rate: regular rate GI: GI Palp: Yes Soft to palpation and No Tenderness to palpation present (GI) : General: Yes CVA tenderness on the right Extrem: Right lower extremity: no edema Left lower extremity: no edema Objective Data Vital Signs Vital Signs: Vital Signs - 24 hr 09/05/22 13:56 09/05/22 21:21 09/05/22 21:00 Temperature 96.6 F L 97 F L Pulse Rate 79 87 Respiratory Rate 16 22 H Blood Pressure 152/62 H 161/82 H Pulse Oximetry 96 92 Oxygen Delivery Room Air 09/05/22 22:10 09/06/22 06:00 Temperature 96.8 F L Pulse Rate 85 Respiratory Rate 20 Blood Pressure 150/71 H 146/76 H Pulse Oximetry 91 Oxygen Delivery Intake/Output Intake/Output: Intake & Output 09/03/22 09/04/22 09/05/22 09/06/22 23:59 23:59 23:59 23:59 Intake Total 3030 3180 2790 450 Output Total 2100 700 1200 500 Balance 930 2480 1590 -50 Meds/Results Medications: Active Medications Generic Name Dose Route Start Last Admin Trade Name Freq PRN Reason Stop Dose Admin Hydrocodone Bitart/Acetaminophen 1 tab
[2022-09-06] MEDS: cefTRIAXone 2 GM in SODIUM CHLORIDE 0.9% IV 100 ML 200 ML IVPB (13:39)
[2022-09-06 14:00] VITALS: BP 128/60; PULSE 96; RESP 18; TEMP 35.6; O2SAT 99
--- NOTE | 2022-09-06 14:40 | PM.IMPN ---
Progress Note: A&P Assessment and Plan (1) Sepsis with acute hypoxic respiratory failure: Code(s): A41.9 - Sepsis, unspecified organism; R65.20 - Severe sepsis without septic shock; J96.01 - Acute respiratory failure with hypoxia Status: Acute Assessment and Plan: Patient with sepsis induced respiratory failure. CXR showing mild atelectasis on admission. She needed up to 10L but able to wean to room air now as her condition improved. Continue to monitor. (2) Sepsis: Code(s): A41.9 - Sepsis, unspecified organism Status: Acute Assessment and Plan: Sepsis present on admission related to UTI and obstructing right ureteral mass on imaging. During the cystoscopy, the patietn was noted to have purulent fluid from the right orifice once guidewire was placed. BCx x2 growing EColi and Proteus. UCx growing Proteus. Cultures sensitive to Rocephin and currently on 2gm daily. No fevers. WBC normal. Transition to oral tomorrow. (3) Ureteral obstruction: Code(s): N13.5 - Crossing vessel and stricture of ureter without hydronephrosis Status: Acute Assessment and Plan: CT scan showing 4mm proximal right ureter mass with mild right hydronephrosis. Patient underwent cystoscopy with stent placement. Bladder had multiple lesions concerning for malignancy. Pateitn will need follow up cystoscopy with biopsy of lesions. Appreciate urology input. (4) UTI (urinary tract infection): Code(s): N39.0 - Urinary tract infection, site not specified Status: Acute Assessment and Plan: As above. (5) Liver mass: Code(s): R16.0 - Hepatomegaly, not elsewhere classified Status: Acute Assessment and Plan: CT scan showing a 8cm liver mass, diffuse hepatic steatosis and portal venous HTN. Paraesophageal varices noted and paraumbilical and a splenic-pelvic vein portacaval shunt. MRI liver showing 8x6.2cm mass most likely benign. Recommended biopsy. With recent bacteremia, will hold on biopsy until she has completed her abx especially since the imaging is more consistent with a bengin findings. Check tumor markers (6) MOISES (acute kidney injury): Code(s): N17.9 - Acute kidney failure, unspecified Status: Acute Assessment and Plan: Related to above. Resolved now (7) Type 2 diabetes mellitus: Code(s): E11.9 - Type 2 diabetes mellitus without complications Status: Acute Assessment and Plan: A1c 10.8. Anyieitn not eating much. Holding her Jardiance and Lantus. Blood sugars remain well controlled. Continue sliding scale. (8) Thrombocytopenia: Code(s): D69.6 - Thrombocytopenia, unspecified Status: Acute Assessment and Plan: Low related to sepsis. Levels have trended up Subjective Date/time seen: 09/06/22 14:40 Interval history: 62yo female with DM and HTN here for abdominal pain and found to sepsis related to obstructing right renal ureter with UTI. Assuming care. Chart reviewed. Patient still has the right flank pain but this has improved. She denies any chest pain or shortness of breath. She does feel dyspneic on exertion. She has no history of liver disease. She was seen by therapy who felt the patient was independent. Patient is been up ambulating to the bathroom without difficulty. Exam Narrative: AF 96.8 146/76 85 20 91% ra Gen - NARD Chest - CTA bilaterally, nml RR CV - RRR S1/S2 Abd - Soft, diffusely tender, +BS Ext - trace pedal edema. Negative Delta's sign. Psych - Nml mood and affect Skin - Warm and dry Objective Data Vital Signs Vital Signs: Vital Signs - 24 hr 09/05/22 21:21 09/05/22 21:00 09/05/22 22:10 Temperature 97 F L Pulse Rate 87 Respiratory Rate 22 H Blood Pressure 161/82 H 150/71 H Pulse Oximetry 92 Oxygen Delivery Room Air 09/06/22 06:00 Temperature 96.8 F L Pulse Rate 85 Respiratory Rate 20 Blood Pressure 146/76 H Pulse Ox
[2022-09-06 16:31] LABS: Glucose Point of Care 184 mg/dl (65-105)
[2022-09-06 17:19] LABS: Add Urine Microscopic? YES; Appearance Urine Cloudy (Clear); Bacteria Urine Trace /hpf; Bilirubin Urine Negative (Negative); Blood Urine 2+ (Negative); Color Urine Yellow (Yellow); Glucose Urine UA 2+ mg/dL (Negative); Ketones Urine Negative (Negative); Leukocyte Esterase Ur 3+ LEU/UL (NEGATIVE); Nitrate Urine Negative (Negative); Protein Urine 1+ mg/dL (Negative); Specific Grav Ur 1.009 (1.001-1.035); Squamous Epithelial Cell Urine Rare /hpf (Few); Urobilinogen Urine Negative mg/dL (<2.0); WBC Urine >75 /hpf (0-3)
[2022-09-06] MEDS: HYDROcodone/acetaminophen (*CRX) 5-325 MG TABLET 1 TAB PO (18:11)
[2022-09-06] MEDS: OXYBUTYNIN CHLORIDE 5 MG TABLET PO (18:11)
[2022-09-06 21:45] LABS: Glucose Point of Care 266 mg/dl (65-105)
[2022-09-06 22:00] VITALS: BP 147/68; PULSE 81; RESP 21; TEMP 36.4; O2SAT 95
[2022-09-06] MEDS: INSULIN ASPART (*BKC) 100 UNITS/ML SUB-Q (22:02)
--- NOTE | 2022-09-06 23:52 | PC.NURSE ---
Pt resting in bed. Pt continues to state that she is going to have the liver biopsy done sunday. Pt had blood sugar of 266, provider notified and ordered 2 units of novolog with recheck in 4 hours. Pt states she has no needs or complaints at this time. Pt participated and contributed to plan of care for this shift. Will continue to monitor pt.
[2022-09-07 02:21] LABS: Glucose Point of Care 154 mg/dl (65-105)
[2022-09-07 06:00] VITALS: BP 162/79; PULSE 93; RESP 22; TEMP 35.9; O2SAT 96
[2022-09-07 06:34] LABS: Hemoglobin 9.4 g/dL (12.0-15.0); Mean Corpuscular HGB Conc 32.4 g/dl (32-36); Mean Corpuscular Hemoglobin 27.7 pg (26-34); Mean Corpuscular Volume 85.5 fl (80-100); Mean Platelet Volume 11.2 fl (7.4-10.4); Platelet Count Result 186 k/mm3 (150-375); Red Blood Count 3.39 M/mm3 (4.2-5.4); Red Cell Distribution Width 16.1 % (11.5-14.5); White Blood Count 7.7 K/mm3 (4.5-10.0)
[2022-09-07 06:53] LABS: Alanine Aminotransferase 26 U/L (6-35); Albumin Level 2.5 g/dL (3.5-5.1); Alkaline Phosphatase 88 U/L (38-126); Anion Gap 11 mmol/L (8-16); Aspartate Amino Transferase 28 U/L (14-36); Bilirubin,Total 0.8 mg/dL (0.2-1.3); Blood Urea Nitrogen 9 mg/dL (7-17); Calcium 7.5 mg/dL (8.4-10.2); Carbon Dioxide 24 mmol/L (22-30); Chloride 102 mmol/L (98-107); Estimated CRCL calculation 70 ml/min; Estimated Glomerular Filt Rate > 60; Glucose 172 mg/dL (65-110); Magnesium 1.5 mg/dL (1.6-2.3); Potassium 3.2 mmol/L (3.4-5.0); Sodium 137 mmol/L (137-145)
[2022-09-07 07:17] LABS: Hepatitis B Surface Antigen Negative (Negative)
[2022-09-07 07:34] LABS: Hepatitis B Surface Anti Res Negative; Hepatitis C Virus Antibody Negative (Negative)
[2022-09-07 07:42] LABS: Glucose Point of Care 162 mg/dl (65-105)
[2022-09-07] MEDS: lisinopriL 10 MG TABLET 30 MG PO (08:08)
[2022-09-07] MEDS: ENOXAPARIN 40 MG/0.4 ML SYRINGE SUB-Q (08:08)
[2022-09-07] MEDS: OXYBUTYNIN CHLORIDE 5 MG TABLET PO ×2 (08:09→14:02)
[2022-09-07] MEDS: SERTRALINE HCL 50 MG TABLET 100 MG PO (08:09)
[2022-09-07 11:13] LABS: Glucose Point of Care 203 mg/dl (65-105)
[2022-09-07] MEDS: INSULIN ASPART (*BKC) 100 UNITS/ML SUB-Q (12:22)
[2022-09-07 13:45] VITALS: BP 150/59; PULSE 103; RESP 18; TEMP 36.4; O2SAT 100
[2022-09-07] MEDS: cefTRIAXone 2 GM in SODIUM CHLORIDE 0.9% IV 100 ML 200 ML IVPB (13:58)
--- NOTE | 2022-09-07 14:04 | PM.DS ---
DS: Admitting Diagnosis Discharge Date 09/07/22 Admitting Diagnosis Abdominal pain DS: Discharge Diagnosis Discharge Diagnosis (1) Sepsis with acute hypoxic respiratory failure: Code(s): A41.9 - Sepsis, unspecified organism; R65.20 - Severe sepsis without septic shock; J96.01 - Acute respiratory failure with hypoxia Status: Acute (2) Sepsis: Code(s): A41.9 - Sepsis, unspecified organism Status: Acute (3) Ureteral obstruction: Code(s): N13.5 - Crossing vessel and stricture of ureter without hydronephrosis Status: Acute (4) UTI (urinary tract infection): Code(s): N39.0 - Urinary tract infection, site not specified Status: Acute (5) Liver mass: Code(s): R16.0 - Hepatomegaly, not elsewhere classified Status: Acute (6) MOISES (acute kidney injury): Code(s): N17.9 - Acute kidney failure, unspecified Status: Acute (7) Type 2 diabetes mellitus: Code(s): E11.9 - Type 2 diabetes mellitus without complications Status: Acute (8) Thrombocytopenia: Code(s): D69.6 - Thrombocytopenia, unspecified Status: Acute (9) Renal hematoma: Code(s): S37.019A - Minor contusion of unspecified kidney, initial encounter Status: Acute (10) Bladder mass: Code(s): N32.89 - Other specified disorders of bladder Status: Acute DS: Summary Hospital Course Reason for hospitalization: 62yo female with DM and HTN here for abdominal pain and found to sepsis related to obstructing right renal ureter with UTI. please see H&P for details. Hospital Course: Sepsis present on admission related to UTI and obstructing right ureteral mass on imaging. During the cystoscopy, the patient was noted to have purulent fluid from the right orifice once guidewire was placed. BCx x2 growing EColi and Proteus. UCx growing Proteus. Cultures sensitive to Rocephin and treated with on 2gm daily. No fevers. WBC normalized. Patient with sepsis induced respiratory failure. CXR showing mild atelectasis on admission. She needed supplemental O2 but able to wean to room air now as her condition improved. CT scan showing 4mm proximal right ureter mass with mild right hydronephrosis. Patient underwent cystoscopy with stent placement. Bladder had multiple lesions concerning for malignancy. Patient will need follow up cystoscopy with biopsy of lesions.? CT scan also showing a 8cm liver mass, diffuse hepatic steatosis and portal venous HTN. Paraesophageal varices noted and paraumbilical and a splenic-pelvic vein portacaval shunt.? MRI liver showing 8x6.2cm mass most likely benign. Recommended biopsy. With recent bacteremia, we held on biopsy until she has completed her abx especially since the imaging is more consistent with a benign findings. Tumor markers pending. MRI also showed a right subacute subcapsular hematoma. Urology was aware of this. She overall did well and was able to be discharged home on 09/07/22. Status at Discharge Cognitive/behavioral status at discharge: Stable Time Spent with Patient Time attestation: Total time spent providing and/or coordinating discharge services: 35 minutes Time spent: Greater than 30 minutes Specific discharge activities: Discussed Hospital course and follow-up plan with Dr. Severino. He is aware of the liver mass then will need a biopsy. Exam Narrative: AF 97.5 150/59 103 18 100% ra Gen - NARD Chest - CTA bilaterally, nml RR CV - RRR S1/S2 Abd - Soft, diffusely R>L tenderness. +BS Ext - no pedal edema Psych - Nml mood and affect Skin - Warm and dry DS: Data Data Completed and Pending Labs on day of discharge: Labs from last 24 hours 09/07/22 09/07/22 09/07/22 11:09 07:34 06:01 WBC RBC Hgb Hct MCV MCH MCHC RDW Plt Count MPV Sodium Potassium Chloride Carbon Dioxide Anion Gap BUN Creatinine Estim Creat Clear Calc Estimated GFR Gluc
[2022-09-07] MEDS: POTASSIUM CHLORIDE 20 MEQ TABLET 40 MEQ PO (14:52)
--- NOTE | 2022-09-11 06:37 | PC.NURSE ---
Urine cx shows no growth. Dr. Benito sullivan.
[2022-09-12 03:12] LABS: Hepatitis B Core Ab Total Reactive (Nonreactive)
[2022-09-13 04:05] LABS: CA 19-9 24 U/mL (<34)
[2022-09-13 16:28] LABS: Alpha Fetoprotein Tumor Marker 1.4 ng/mL (<6.1)
--- NOTE | 2022-09-19 12:20 | PC.NURSE ---
HEp B core is reactive A. Faxed to Dr. Severino. Dr. Oliver aware of findings.
== END 2022-09-07 16:00 | disposition home or self-care (01) | DRG 720 ==
LOC: ANHED 16:18 → ANHSURGERY 18:37 → ANHIMU 20:52 → ANHSURGERY 20:55 → ANHIMU 22:26 → ANHICU 09-01 05:47 → ANHIMU 09-01 07:13 → ANHICU 09-01 10:56 → ANH3MEDSUR 09-03 22:27
PROVIDERS: Chiropractor; Nurse Practitioner Adult Health; Urology; Admitting Provider Internal Medicine; Emergency Provider Emergency Medicine; PCP Family Medicine; Visit Provider Internal Medicine
PROC: 0T768DZ Dilation of Right Ureter with Intraluminal Device, Via Natural or Artificial Opening Endoscopic (ICD-10-PCS; CPT 52352; principal; 2022-08-31 19:15)
DX: A41.9 Sepsis, unspecified organism (principal); J96.01 Acute respiratory failure with hypoxia; N17.9 Acute kidney failure, unspecified; R16.0 Hepatomegaly, not elsewhere classified; D69.6 Thrombocytopenia, unspecified; K76.6 Portal hypertension; I85.10 Secondary esophageal varices without bleeding; R65.20 Severe sepsis without septic shock; N13.6 Pyonephrosis; B96.20 Unspecified Escherichia coli [E. coli] as the cause of diseases classified elsewhere; B96.4 Proteus (mirabilis) (morganii) as the cause of diseases classified elsewhere; E11.9 Type 2 diabetes mellitus without complications; N32.89 Other specified disorders of bladder; D72.829 Elevated white blood cell count, unspecified; E66.3 Overweight; Z68.33 Body mass index [BMI] 33.0-33.9, adult; Z87.891 Personal history of nicotine dependence; Z90.710 Acquired absence of both cervix and uterus
CPT/HCPCS: 36415; 51701; 74176; 74183; 74420; 80048; 80053; 80202; 81001; 82105; 82948; 83036; 83605; 83690; 83735; 84100; 85025; 85027; 85055; 85610; 85730; 86301; 86704; 86706; 86803; 87040; 87077; 87086; 87088; 87186; 87340; 93005; 96361; 96365; 96375; 97110; 97162; 97165; 97530; 97535; 99285; A9270; A9577; C1751; C1758; C1769; C2617; J0131; J0153; J0696; J1650; J1720; J1815; J2250; J2270; J2370; J2405; J2543; J2704; J3010; J3370; J3475; J3480; J7030; J7040; J7120

== ENCOUNTER 2023-02-10 15:18 | Emergency (ER) | payer BC, SELFPAY ==
--- NOTE | ~2023-02-10 | XR_ITS ---
EXAM: XR knee RT min 4V DATE: 02/10/2023 15:42 HISTORY: FALL, MEDIAL / ANTERIOR KNEE PAIN . COMPARISON: None available. FINDINGS: Decreased mineralization. No fracture or dislocation. No lytic or blastic lesion. Mild tri compartmental arthritis. Chondrocalcinosis. No erosion or periosteal change. Soft tissues within norm al limits. IMPRESSION: No acute osseous finding in the right knee. Reviewed, dictated and finalized at location K.
[2023-02-10 15:29] VITALS: BP 127/64; PULSE 88; RESP 16; TEMP 36.7; O2SAT 100
--- NOTE | 2023-02-10 15:32 | ED.LOWEXIN ---
HPI - Extremity Injury (Lower) General Chief Complaint: Extremity Injury, Lower Stated Complaint: Right,Left Knee Pain Source: patient and RN notes reviewed History of Present Illness HPI Narrative: 62 yo F presents to urgent care with complaints of right medial/anterior knee pain. Pt states she tripped over her outdoor hose, while getting into the care, about 10:00 pm, falling onto both knees. Pt presents with abrasion to left inferior patella but denies any pain to her left knee. Pt presents with right knee pain. Pt reports increaed pain with full extension and full flexion. Denies any head injury or LOC. Denies any chest pain, shortness of breath, vomiting, headache, or dizziness. Patient did take ibuprofen around 4:00 a.m. today. Some parts of this dictation were generated by voice recognition software and may contain typographical and/or grammatical inaccuracies. Related Data Home Medications Medication Instructions Recorded Confirmed buspirone 10 mg tablet 10 mg PO Q12H PRN Anxiety 08/31/22 02/10/23 empagliflozin 25 mg tablet 25 mg PO DAILY 08/31/22 02/10/23 (Jardiance) insulin lispro 200 unit/mL (3 mL) 3 unit subcut TIDWMEAL 08/31/22 02/10/23 subcutaneous pen (Humalog KwikPen U-200 Insulin) lisinopril 30 mg tablet 30 mg PO DAILY 08/31/22 02/10/23 oxybutynin chloride 5 mg tablet 10 mg PO BID 08/31/22 02/10/23 sertraline 100 mg tablet 100 mg PO DAILY 08/31/22 02/10/23 solifenacin 10 mg tablet 10 mg PO DIRECTED 02/10/23 02/10/23 Allergies Allergy/AdvReac Type Severity Reaction Status Date / Time No Known Allergies Allergy Mild Verified 02/10/23 15:24 Review of Systems Review of Systems: Pertinent positives and pertinent negatives per HPI. [facility] Past Medical History Medical History Diabetes Hypertension Kidney stones Surgical History Surgical History History of hysterectomy Social History Social History Smoking status: Former smoker Alcohol intake: never Substance use: never Substance use type: does not use Lack of Transportation: No Lack of Food: Never True Current Housing: I Have Housing Concerned About Future Housing: No Difficulty Paying Gas/Electric Bills: No Difficulty Paying for Meds: No Currently Unemployed: No Education: Decline to Answer Difficulty w/ Childcare or Family Care: No Spiritual care concerns: No Comments At the time of my signature, I reviewed and agree with the nursing past medical, surgical, social, and family history. There is no relevant family history pertinent to the patient complaint. Exam Narrative: GENERAL: This is a well-nourished, well-developed patient, in no apparent distress. HEAD: normocephalic, atraumatic. EYES: Sclera clear/white. Vision is grossly intact. EARS: External ears normal, auditory canals clear and without drainage. Hearing grossly intact. NOSE: External nose normal with no obvious nasal discharge, nares without redness, no rhinorrhea. THROAT: Mucous membranes moist. NECK: Neck supple, non-tender without lymphadenopathy, masses or thyromegaly. CARDIOVASCULAR: Regular rate RESPIRATORY: No respiratory distress GASTROINTESTINAL: Abdomen soft, non-tender, nondistended. Bowel sounds are active. No hepato-splenomegaly, or palpable masses. No guarding. SKIN: quarter-size abrasion to left inferior patella. NEURO: awake, alert, and oriented to person, place and time. There were no obvious focal neurologic abnormalities. EXTREMITIES: Tenderness noted to the right medial /anterior patella. Patient has full range of motion but reports pain with full flexion and full extension. Course Course Level of Care: Express Care Visit Vital Signs Vital signs: Vital Signs Temperature 98.1 F 02/10/23 15:29 Pulse Rate 88 02/10/23 15:29 Respiratory R
== END 2023-02-10 16:12 | disposition home or self-care (01) ==
PROVIDERS: Emergency Provider Nurse Practitioner Family; PCP Family Medicine
DX: S80.01XA Contusion of right knee, initial encounter (principal); W18.09XA Striking against other object with subsequent fall, initial encounter; E11.9 Type 2 diabetes mellitus without complications; I10 Essential (primary) hypertension; Z87.891 Personal history of nicotine dependence
CPT/HCPCS: 73564; 99213; G0463

== ENCOUNTER 2023-03-09 08:41 | Inpatient (IN) | payer BC, SELFPAY ==
[2023-03-09] VITALS (20 sets, daily range): BP systolic 95–124; BP diastolic 53–81; PULSE 78–104; RESP 16–20; TEMP 36.3–37; O2SAT 96–100; BMI 30.9
--- NOTE | ~2023-03-09 | XR_ITS ---
EXAMINATION: XR retrograde pyelo w/stent RT INDICATION: Right flank pain TECHNIQUE: Five intraoperative fluoroscopic images are submitted for review. Total fluoroscopic time is 46.5 seconds COMPARISON: None available FINDINGS: Fluoroscopic images demonstrate mild right hydronephrosis. A right internal ureteral stent is placed in expected position. IMPRESSION: 1. Please refer to procedure note for full details. Reviewed, dictated and finalized at location F.
--- NOTE | ~2023-03-09 | CT_ITS ---
Non-contrast CT scan of the Abdomen and Pelvis Clinical indication: Right flank pain Technique: 2.5 mm axial scans were obtained through the abdomen and pelvis without intravenous or or al contrast. Dose reduction technique was used on this scan by utilizing automated exposure control a nd iterative reconstruction technique. The dose-length product (DLP) was 664.67 mGy-cm. COMPARISON: 08/31/2022 Findings: Images through the lung bases reveal chronic scarring or atelectasis at the right upper lo be. Large calcified subcarinal lymph node noted. 4 mm nonobstructing left upper pole renal stone present. Small left renal cysts are present. There is mild right hydroureteronephrosis, with probable somewhat ill-defined stones the right renal pelvis, measuring up to approximately 4 mm in diameter. There is right perinephric stranding. Stable exophytic left hepatic lobe mass measuring approximately 7 cm in diameter. The spleen, pancrea s, gallbladder, and adrenals appear normal. There is no aortic aneurysm. There is no evidence of bowel obstruction. Sigmoid diverticulosis noted. Images through the pelvis were performed. There is no evidence of ascites or lymphadenopathy. Urinary bladder unremarkable. No pelvic mass evident. Impression: Presumed right renal pelvis stones measuring up to 4 mm in diameter, with mild right hydroureteroneph rosis and right perinephric stranding. 4 mm nonobstructing left renal stone. Stable 7 cm exophytic left hepatic lobe mass. Reviewed, dictated and finalized at [facility]. Impression: Presumed right renal pelvis stones measuring up to 4 mm in diameter, with mild right hydroureteronephrosis and right perinephric stranding. 4 mm nonobstructing left renal stone. Stable 7 cm exophytic left hepatic lobe mass.
[2023-03-09 09:15] LABS: Glucose Point of Care 287 mg/dl (65-105)
--- NOTE | 2023-03-09 09:16 | ECG_ITS ---
Measurements Intervals [place] Rate: 93 P: 56 NV: 197 QRS: 38 QRSD: 81 T: 69 QT: 342 QTc: 426 Interpretive Statements SINUS RHYTHM CANNOT RULE OUT SEPTAL MYOCARDIAL INFARCTION , PROBABLY OLD [40+ ms Q WAVE IN V1/V2] COMPARED TO ECG 09/01/2022 15:04:03 SINUS RHYTHM NOW PRESENT Electronically Signed On 03-09-2023 11:05:03 CDT by Piedad Severino M.D.
[2023-03-09 09:32] LABS: Hematocrit 40.7 % (37.0-47.0); Mean Corpuscular HGB Conc 31.9 g/dl (32-36); Mean Corpuscular Hemoglobin 27.7 pg (26-34); Mean Corpuscular Volume 86.6 fl (80-100); Platelet Count Result 175 k/mm3 (150-375); Red Cell Distribution Width 15.8 % (11.5-14.5); White Blood Count 9.6 K/mm3 (4.5-10.0)
[2023-03-09 09:42] LABS: Alanine Aminotransferase 33 U/L (6-35); Albumin Level 4.1 g/dL (3.5-5.1); Alkaline Phosphatase 39 U/L (38-126); Anion Gap 10 mmol/L (8-16); Aspartate Amino Transferase 36 U/L (14-36); Bilirubin,Total 0.6 mg/dL (0.2-1.3); Blood Urea Nitrogen 15 mg/dL (7-17); Calcium 8.7 mg/dL (8.4-10.2); Carbon Dioxide 17 mmol/L (22-30); Chloride 110 mmol/L (98-107); Estimated CRCL calculation 57 ml/min; Estimated Glomerular Filt Rate > 60; Glucose 300 mg/dL (65-110); Lactic Acid Reflex 1.4 mmol/L (0.7-2.0); Potassium 3.5 mmol/L (3.4-5.0); Sodium 137 mmol/L (137-145)
[2023-03-09 09:49] LABS: Appearance Urine Turbid (Clear); Bacteria Urine 4+ /hpf; Bilirubin Urine Negative (Negative); Blood Urine 3+ (Negative); Color Urine Yellow (Yellow); Glucose Urine UA 3+ mg/dL (Negative); Ketones Urine Negative (Negative); Leukocyte Esterase Ur 2+ LEU/UL (Negative); Nitrate Urine Negative (Negative); Protein Urine 1+ mg/dL (Negative); RBC Urine >100 /hpf (0-2); Squamous Epithelial Cell Urine Occasional /hpf (Few); Urobilinogen Urine 0.2 mg/dL (<2.0); WBC Clumps Urine Present /HPF; WBC Urine >100 /hpf
[2023-03-09 09:52] LABS: Add Urine Microscopic? YES; Specific Grav Ur 1.038 (1.001-1.035)
--- NOTE | 2023-03-09 10:06 | ED.ABDPAIN ---
HPI - Abdominal Pain General Chief Complaint: Abdominal Pain Stated Complaint: abd pain, diarrhea Time Seen by Provider: 03/09/23 09:21 History of Present Illness HPI narrative: 62-year-old female presenting to the emergency department for evaluation of diarrhea persistent yesterday and then associated right flank pain and right lower quadrant pain that started last night while she was sleeping. Patient did have an admission on 09/07/2022 for evaluation of a UTI with an obstructing right ureteral mass. Patient's blood cultures and urine cultures were sensitive to Rocephin. At that time bladder had multiple lesions concerning for malignancy. Patient reports that she did have a cystoscopy and this showed a fungal infection. Related Data Home Medications Medication Instructions Recorded Confirmed buspirone 10 mg tablet 10 mg PO Q12H PRN Anxiety 08/31/22 03/09/23 empagliflozin 25 mg tablet 25 mg PO DAILY 08/31/22 03/09/23 (Jardiance) sertraline 100 mg tablet 100 mg PO DAILY 08/31/22 03/09/23 vibegron 75 mg tablet (Gemtesa) 75 mg PO DAILY 03/09/23 03/09/23 Allergies Allergy/AdvReac Type Severity Reaction Status Date / Time No Known Allergies Allergy Mild Verified 02/10/23 15:24 Review of Systems Review of Systems: All systems reviewed & are unremarkable except as noted in HPI and below PMFSH Past Medical History Medical History Diabetes Hypertension Kidney stones Surgical History Surgical History History of hysterectomy Social History Social History Smoking status: Former smoker Alcohol intake: never Substance use: never Substance use type: does not use Lack of Transportation: No Lack of Food: Never True Current Housing: I Have Housing Concerned About Future Housing: No Difficulty Paying Gas/Electric Bills: No Difficulty Paying for Meds: No Currently Unemployed: No Education: Decline to Answer Difficulty w/ Childcare or Family Care: No Spiritual care concerns: No Exam Narrative: APPEARANCE: Well appearing, no pain, no distress, well-nourished. HEAD: normocephalic, atraumatic. EYES: PERRLA/EOMI, conjunctivae clear. NOSE: Normal no drainage NECK: Supple. No adenopathy, no masses. RESPIRATORY: Airway patent, respirations nonlabored. Clear to auscultation bilaterally, no rales, rhonchi, wheezing. CARDIOVASCULAR: Regular rate and rhythm without murmurs rubs or gallops. ABDOMINAL: Soft, right lower tenderness to palpation MUSCULOSKELETAL: Moves all extremities. Strength/ROM intact, No edema, No calf tenderness. NEURO: Alert. Cranial nerves II through XII intact. Grossly intact SKIN: Warm, dry. Normal Color Course Course Emergency Course: 62-year-old female presented the ED for evaluation of right flank pain. Patient was started on Rocephin and patient was ordered a CT scan to evaluate for possible ureteral obstruction. Patient family were updated on the plan for anticipated admission but further work-up to evaluate her abdominal pain. Urology, Dr. Coats was consulted, he felt the patient did not need to go to the OR for placement of a stent but recommended treatment for pyelonephritis. He will follow the patient as consult. Case was discussed with the hospitalist and patient was accepted for admission. Patient was updated on the diagnosis and plan for admission. All question concerns were addressed. Vital Signs Vital signs: Vital Signs Temperature 97.5 F L 03/09/23 09:04 Pulse Rate 104 H 03/09/23 09:04 Respiratory Rate 16 03/09/23 09:04 Blood Pressure 95/81 L 03/09/23 09:04 Pulse Oximetry 96 03/09/23 09:04 Oxygen Delivery Room Air 03/09/23 09:04 Temperature 97.8 F 03/09/23 15:53 Pulse Rate 90 03/09/23 15:53 Respiratory Rate 17 03/09/23 15:53 Blood Pressure 117/61
[2023-03-09 10:12] LABS: Band Neutrophils Percent 28 % (0-6); Eosinophils Absolute Manual 0.09 K/mm3 (0.02-0.5); Eosinophils Percent Manual 1 % (0-4); Lymphocytes Absolute Manual 0.48 K/mm3 (1.1-4.5); Lymphocytes Percent Manual 5 % (18-44); Monocytes Absolute Manual 0.38 K/mm3 (0.1-0.90); Monocytes Percent Manual 4 % (3-9); Neutrophils Absolute Manual 8.44 K/mm3 (1.7-7.2); Neutrophils Percent Manual 60 % (46-73); Platelet Estimate Adequate (Adequate); Schistocytes None Seen (NORMAL); Total Cells Counted 100
[2023-03-09] MEDS: SODIUM CHLORIDE 0.9% IV 1,000 ML 999 ML IV CONT (10:29)
--- NOTE | 2023-03-09 14:13 | PM.IMHP ---
H&P: HPI History of Present Illness Date/Time: 03/09/23 15:45 Chief Complaint: Abdominal pain. Narrative: This is a very pleasant 62-year-old female with history of kidney stones, overactive bladder, insulin-dependent diabetes, and hypertension who presented to the emergency department via private vehicle from home for evaluation of abdominal pain. The patient provides the following history. She has not been feeling well since yesterday and her symptoms initially started as diarrhea and she reports having upwards of 20 bouts of diarrhea yesterday. She then developed a severe aching discomfort in the right flank which woke her from sleep. It radiates into the right mid to low back and somewhat into the right mid and lower quadrant. The pain is worse with movement and palpation. Her urine was a bit darker today and she believes there may have been a bit of blood in it as well. She has dysuria towards the end of her stream and she has also noticed that her urine smells a bit strong. She also endorses nausea and reports emesis x2 this morning. Her appetite has been poor since yesterday. She has had a subjective fever but no chills or stress. She has not noticed any blood or mucus in the stools. Urine and imaging today are consistent with infection and right pyelonephritis. It is noted that she was admitted to the hospital last year with similar findings and a CT at that time showed a possible soft tissue mass in her right renal pelvis/right proximal ureter however cystoscopy showed no ureteral pathology. However she was found to have a papillary lesion her bladder which biopsy subsequently determined to be a fungal ball with fungal cystitis. She has been started on antibiotics and is being admitted in this setting for further treatment and urology consultation. Review of Systems Review of Systems: Twelve systems were reviewed and are negative except for as per HPI. [facility] Past Medical History Medical History (Updated 03/09/23 @ 23:00 by Yelena Quinteros PA-C) Hypertension Kidney stones Overactive bladder Type 2 diabetes mellitus Surgical History Surgical History (Updated 03/09/23 @ 22:57 by Yelena Quinteros PA-C) History of appendectomy History of cystoscopy Biopsy of papillary bladder lesion was consistent with fungal cystitis. History of hysterectomy Family History Family History (Updated 03/09/23 @ 22:57 by Yelena Quinteros PA-C) Other Diabetes mellitus Hypertension Social History Social History (Updated 03/09/23 @ 22:57 by Yelena Quinteros PA-C) Social History: Surrogate medical decision maker: Kinga Frausto, daughter. Code status: Full code. Smoking status: Former smoker Alcohol intake: never Substance use: never Substance use type: does not use Lack of Transportation: No Lack of Food: Never True Current Housing: I Have Housing Concerned About Future Housing: No Difficulty Paying Gas/Electric Bills: No Difficulty Paying for Meds: No Currently Unemployed: No Education: Decline to Answer Difficulty w/ Childcare or Family Care: No Additional living arrangements comments: Lives in [place]. Spiritual care concerns: No Meds Home Medications and Allergies Home Medications Medication Instructions Recorded Confirmed Type buspirone 10 mg tablet 10 mg PO Q12H PRN Anxiety 08/31/22 03/09/23 History empagliflozin 25 mg tablet 25 mg PO DAILY 08/31/22 03/09/23 History (Jardiance) sertraline 100 mg tablet 100 mg PO DAILY 08/31/22 03/09/23 History insulin glargine 100 unit/mL (3 10 unit (0.1 mL) subcut Q12H #10 mL 09/07/22 03/09/23 Rx mL) subcutaneous pen (Basaglar KwikPen U-100 Insulin) vibegron 75 mg tablet (Gemtesa) 75 mg PO DAILY 03/09/23 03/09/23 History Allergies Allergy/AdvReac Type Severity Reaction Status Date / Time No Known Allergies Allergy Mild Verified 02/10/23 15:24 Vital Signs Vital Signs - 24 hr 03/09/23 09:04 03/09/23 0
[2023-03-09] MEDS: ONDANSETRON INJ 4 MG/2 ML VIAL IV PUSH ×2 (15:06→18:37)
[2023-03-09] MEDS: HYDROmorphone HCL INJ (*CRX) 1 MG/ML SYR 0.5 MG IV PUSH ×2 (15:06→20:55)
--- NOTE | 2023-03-09 15:24 | ADMGEN ---
This patient, Verona Frausto, was admitted to [facility] Surg Room 306-01. Patient/family oriented to hospital policies and general routines including ID bracelet, bed and alarms, visiting hours, pain management, procedures, bathroom and other care routines, personal items, smoking policy, room service/diet, and visiting hours. Information on how to activate the Rapid Response Team has been discussed. Patient/Family are encouraged to report perceived risks to care and to ask questions if they do not understand what they are told or what they should do.
--- NOTE | 2023-03-09 17:41 | WPDURCON ---
Assessment and Plan Assessment and plan (1) UTI (urinary tract infection): Code(s): N39.0 - Urinary tract infection, site not specified Status: Acute (2) Pyelonephritis: Code(s): N12 - Tubulo-interstitial nephritis, not specified as acute or chronic Status: Acute Assessment and Plan: Probable right pyelonephritis. CT findings must suggestive of possible fungal tissue (given recent past history) without true stone. Given absence of fever/leukocytosis or clear obstructive uropathy I don't believe she needs a ureteral stent. Will add oral Fluconazole pending urine culture (in the event this turns out to be a recurrent fungal infection). If recurrent funguria, she will need ID consultation. Urology Consult Note HPI Date Seen: 03/09/23 Requesting Physician: Tyrell Vigil MD Primary Care Provider: Andrew Severino, Consult Narrative Narrative: Challenging problem in this 62-year-old female who our practice 1st became for March with a September 2022 when she presented [facility] with right pyelonephritis, hydronephrosis an apparent urinary tract infection. A ureteral stent was placed by Dr. Cross at that time and she received subsequent urological care by Dr. Vaughn in [place]. Interestingly, at the time of initial presentation in September [address] scan suggested a possible soft tissue mass in her right renal pelvis/right proximal ureter. Subsequent cystoscopy with retrograde pyelography by Dr. Ayala showed no ureteral pathology. 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 I do not have full information on how the that was treated but she has felt well until the past several days. She now presents predominantly with nausea and vomiting and some mental status changes. She stent had no fevers or chills and minimal right flank pain. CT imaging, however, she again shows some subtle findings in right renal pelvis suggesting a possible recurrent fungal infection. There is mild right hydronephrosis but no clear-cut ureteral or renal pelvic stones on the right. Review of Systems Review of Systems: All systems reviewed & are unremarkable except as noted in HPI and below PMFSH Past Medical History Medical History Diabetes Hypertension Kidney stones Surgical History Surgical History History of hysterectomy Social History Social History Smoking status: Former smoker Alcohol intake: never Substance use: never Substance use type: does not use Lack of Transportation: No Lack of Food: Never True Current Housing: I Have Housing Concerned About Future Housing: No Difficulty Paying Gas/Electric Bills: No Difficulty Paying for Meds: No Currently Unemployed: No Education: Decline to Answer Difficulty w/ Childcare or Family Care: No Spiritual care concerns: No Meds Home Medications and Allergies Home Medications Medication Instructions Recorded Confirmed Type buspirone 10 mg tablet 10 mg PO Q12H PRN Anxiety 08/31/22 03/09/23 History empagliflozin 25 mg tablet 25 mg PO DAILY 08/31/22 03/09/23 History (Jardiance) sertraline 100 mg tablet 100 mg PO DAILY 08/31/22 03/09/23 History insulin glargine 100 unit/mL (3 10 unit (0.1 mL) subcut Q12H #10 mL 09/07/22 03/09/23 Rx mL) subcutaneous pen (Basaglar KwikPen U-100 Insulin) vibegron 75 mg tablet (Gemtesa) 75 mg PO DAILY 03/09/23 03/09/23 History Allergies Allergy/AdvReac Type Severity Reaction Status Date / Time No Known Allergies Allergy Mild Verified 02/10/23 15:24 Vital Signs Vital Signs - 24 hr 03/09/23 09:04 03/09/23 09:22 03/09/23 09:30 Temperature 97.5 F L Pulse Rate 104 H 98 Respiratory Rate 16 20 Blood P
[2023-03-09 20:08] LABS: Glucose Point of Care 172 mg/dl (65-105)
[2023-03-09 23:40] LABS: Hemoglobin A1C 11.1 % (<5.7)
[2023-03-10] MEDS: INSULIN GLARGINE (*BKC) 100 UNITS/ML 10 UNITS SUB-Q ×2 (00:01→08:24)
[2023-03-10] MEDS: HYDROcodone/acetaminophen (*CRX) 5-325 MG TABLET 1 TAB PO (03:43)
[2023-03-10] MEDS: ONDANSETRON INJ 4 MG/2 ML VIAL IV PUSH ×3 (05:47→19:59)
[2023-03-10 05:59] LABS: Basophils Percent Auto 0.1 % (0.2-1.2); Eosinophils Percent Auto 0.4 % (0-4.4); Hematocrit 37.3 % (37.0-47.0); Hemoglobin 11.7 g/dL (12.0-15.0); Immature Granulocyte Absolute 0.03 K/mm3 (0.00-0.031); Immature Granulocyte Percent A 0.4 % (0-0.5); Lymphocytes Absolute Auto 1.04 K/mm3 (0.9-3.2); Mean Corpuscular HGB Conc 31.4 g/dl (32-36); Mean Corpuscular Hemoglobin 27.2 pg (26-34); Mean Corpuscular Volume 86.7 fl (80-100); Mean Platelet Volume 9.5 fl (7.4-10.4); Monocytes Absolute Auto 0.6 K/mm3 (0.1-0.6); Monocytes Percent Auto 8.2 % (2.6-8.5); Neutrophils Absolute Auto 5.7 K/mm3 (1.3-6.7); Neutrophils Percent Auto 76.9 % (45.5-73.1); Platelet Count Result 157 k/mm3 (150-375); Red Cell Distribution Width 16.3 % (11.5-14.5); White Blood Count 7.4 K/mm3 (4.5-10.0)
[2023-03-10 06:00] VITALS: BP 112/50; PULSE 91; RESP 18; TEMP 36.1; O2SAT 95
[2023-03-10 06:09] LABS: Anion Gap 8 mmol/L (8-16); Blood Urea Nitrogen 13 mg/dL (7-17); Calcium 8.5 mg/dL (8.4-10.2); Carbon Dioxide 18 mmol/L (22-30); Chloride 113 mmol/L (98-107); Estimated CRCL calculation 52 ml/min; Estimated Glomerular Filt Rate 56; Glucose 137 mg/dL (65-110); Magnesium 1.9 mg/dL (1.6-2.3); Potassium 3.2 mmol/L (3.4-5.0); Sodium 139 mmol/L (137-145)
[2023-03-10 07:34] LABS: Glucose Point of Care 144 mg/dl (65-105)
[2023-03-10] MEDS: SERTRALINE HCL 50 MG TABLET 100 MG PO (08:22)
[2023-03-10] MEDS: FLUCONAZOLE 150 MG TABLET PO (08:23)
[2023-03-10] MEDS: busPIRone HCL 10 MG TABLET PO (08:23)
[2023-03-10] MEDS: EMPAGLIFLOZIN 25 MG TABLET PO (08:23)
[2023-03-10] MEDS: ACETAMINOPHEN 325 MG TABLET 650 MG PO ×2 (08:25→20:00)
[2023-03-10] MEDS: POTASSIUM CHLORIDE 20 MEQ TABLET 40 MEQ PO (09:28)
--- NOTE | 2023-03-10 09:38 | WPDUROPN2 ---
Progress Note: A&P Assessment and Plan (1) Hydroureteronephrosis: Code(s): N13.30 - Unspecified hydronephrosis Status: Acute (2) Pyelonephritis of right kidney: Code(s): N12 - Tubulo-interstitial nephritis, not specified as acute or chronic Status: Acute Plan 62 yr old female with history of funguria and history of R ureteral stent about 6 mos ago admitted with flank pain, nausea, and uncontrolled DM - Dr. Coats saw her yesterday and reviewed records and CT. He feels the findings in R renal pelvis likely reflect funguria as her prior ureteroscopy with Dr. Vazquez at [place] showed no ureteral/renal abnormalities with bladder biopsy consistent with fungal cystitis. Pt is afebrile with nl wbc ct and nl Cr. Diflucan was added to rocephin yesterday evening. Urine and blood cultures are pending. Continue supportive care with IVF, antiemetics, antifungal and antibiotics. Will add a dose of toradol today to see if flank pain improves while treating the infection. If pain persists, may need to consider replacing stent. - poorly controlled DM with A1C of 11 which is likely contributing to her recurrent funguria. Needs strict BS control and evaluation of her diabetic regiment as the jardiance may be contributing to the infections Subjective Subjective Date/Time Seen: 03/10/23 09:38 Interval history: Patient is still noting some nausea and right flank pain. Has been afebrile. Review of Systems Review of Systems: All systems reviewed & are unremarkable except as noted in HPI and below Exam Narrative: 62 yo WF in NAD, A&Ox3 HENMT: Face/Nose/Sinus: Normal nares present Eyes: General: appearance normal, both eyes and all related structures Neck: Neck: supple Resp: Effort & Inspection: normal respiratory effort Cardio: Rate: regular rate GI: Inspection: non-distended Objective Data Vital Signs Vital Signs: Vital Signs - 24 hr 03/09/23 09:51 03/09/23 10:00 03/09/23 10:01 Temperature Pulse Rate Respiratory Rate Blood Pressure 107/69 Pulse Oximetry 99 100 100 Oxygen Delivery 03/09/23 10:25 03/09/23 10:30 03/09/23 10:45 Temperature 36.3 C L Pulse Rate 96 94 78 Respiratory Rate 18 20 16 Blood Pressure 118/64 Pulse Oximetry 98 98 99 Oxygen Delivery 03/09/23 11:35 03/09/23 11:45 03/09/23 12:30 Temperature 36.8 C Pulse Rate 85 84 87 Respiratory Rate 16 18 17 Blood Pressure 107/53 L 111/63 111/55 L Pulse Oximetry 98 98 97 Oxygen Delivery 03/09/23 14:15 03/09/23 14:17 03/09/23 14:48 Temperature Pulse Rate 84 83 88 Respiratory Rate 18 18 20 Blood Pressure 124/67 Pulse Oximetry 100 100 100 Oxygen Delivery 03/09/23 15:00 03/09/23 15:01 03/09/23 15:35 Temperature 37.0 C Pulse Rate 89 87 Respiratory Rate 18 17 Blood Pressure 123/66 Pulse Oximetry 100 Oxygen Delivery Room Air 03/09/23 15:53 03/09/23 20:00 03/09/23 22:00 Temperature 36.6 C 36.6 C Pulse Rate 90 99 Respiratory Rate 17 18 Blood Pressure 117/61 103/56 L Pulse Oximetry 96 97 Oxygen Delivery Room Air 03/10/23 06:00 03/10/23 08:10 Temperature 36.1 C L Pulse Rate 91 Respiratory Rate 18 Blood Pressure 112/50 L Pulse Oximetry 95 Oxygen Delivery Room Air Intake/Output Intake/Output: Intake & Output 03/07/23 03/08/23 03/09/23 03/10/23 23:59 23:59 23:59 23:59 Intake Total 1650 700 Balance 1650 700 Meds/Results Medications: Active Medications Generic Name Dose Route Start Last Admin Trade Name Freq PRN Reason Stop Dose Admin Acetaminophen 650 mg 03/09/23 23:03 03/10/23 08:25 Acetaminophen 325 Mg Tablet PO 650 mg Q6H PRN Administration Mild Pain (1-3) or Fever Hydrocodone Bitart/Acetaminophen 1 tab 03/09/23 23:03 03/10/23 03:43 Hydrocodone/Acetaminophen (*Crx) 5-325 Mg Tablet PO 1 tab Q6H PRN Administration Pain Rated 4-6 Buspirone HCl 10 mg 03/09/23 23:04 03/10/23 08:23
[2023-03-10] MEDS: KETOROLAC 30 MG/ML VIAL (*BKC) IV PUSH (10:14)
[2023-03-10 11:49] LABS: Glucose Point of Care 274 mg/dl (65-105)
[2023-03-10] MEDS: INSULIN ASPART (*BKC) 100 UNITS/ML SUB-Q ×2 (12:10→16:38)
--- NOTE | 2023-03-10 14:24 | PM.IMPN ---
Progress Note: A&P Assessment and Plan (1) Pyelonephritis of right kidney: Code(s): N12 - Tubulo-interstitial nephritis, not specified as acute or chronic Status: Acute Assessment and Plan: UA is grossly abnormal and her CT scan showed right perinephric stranding. continue IV Rocephin continue fluconazole which was initiated given patient's history of fungal cystitis ( evident on biopsy in September 2022) urine cultures are pending supportive care to include analgesics antiemetics as needed patient is afebrile and no leukocytosis appreciate urology consultation (2) Hydroureteronephrosis: Code(s): N13.30 - Unspecified hydronephrosis Status: Acute Assessment and Plan: Mild right hydroureteronephrosis noted on imaging. no indication for stent at this time per Urology, if pain remains persistent, would consider stent replacement renal function is stable (3) Kidney stones: Code(s): N20.0 - Calculus of kidney Status: Acute Assessment and Plan: Presumed right renal pelvis and nonobstructing left renal stones noted on imaging. per Urology, felt to actually reflect fungal tissue given her recent history Management per urology. (4) Type 2 diabetes mellitus: Code(s): E11.9 - Type 2 diabetes mellitus without complications Status: Acute Assessment and Plan: poorly controlled type 2 diabetes mellitus. A1c is 11.1 poor glucose control likely contributing to fungal infections continue Accu-Cheks, sliding scale insulin, hypoglycemic protocol increase Lantus to 15 units q.h.s. add NovoLog 5 units t.i.d. continue Jardiance at this time. will need follow-up with PCP to consider alternative treatment given recurrent UTI monitor glucose trends and adjust insulin regimen as needed (5) Hypokalemia: Code(s): E87.6 - Hypokalemia Status: Acute Assessment and Plan: potassium 3.2 today likely due to nausea and decreased oral intake supplement with 40 mEq p.o. KCl monitor BMP Subjective Date/time seen: 03/10/23 14:24 Interval history: Date of service: 03/10/2023 Verona Frausto is a 62-year-old female with a history of type 2 diabetes mellitus, hypertension, kidney stones, overactive bladder, and fungal cystitis who is seen in follow-up for pyelonephritis. Patient reports that she is feeling poorly today. She feels very nauseated. She has not had any episodes of emesis and was able to tolerate cream of wheat today but this made her fair poorly. She has been able to tolerate liquids but states that even drinking water causes her to feel nauseous. She had a headache this morning that improved with Tylenol. She continues to endorse right flank pain which she rates a 7/10. She complains of dysuria, dark urine was strong or odor. Denies hematuria. Denies fevers or chills But does note that she woke up in a pool of sweat this morning. She denies any diarrhea. Denies shortness breath, cough, or chest pain. Review of Systems Review of Systems: Twelve systems were reviewed and are negative except for as per HPI. All systems reviewed & are unremarkable except as noted in HPI and below Exam Narrative: General: Well-nourished, well-appearing 62-year-old female, sitting up in bed, comfortable, NARD Neuro: awake, alert and oriented x4, speech clear, no focal neuro deficits noted HEENMT: normocephalic, atraumatic, EOMI, sclerae anicteric Respiratory: clear to auscultation bilaterally, nonlabored breathing Cardio: regular rate, regular rhythm with S1-S2 Abdomen: nondistended, normoactive bowel sounds, soft, right flank exquisitely tender to palpation Extremities: no edema, erythema, or tenderness to palpation, DP pulses 2+ bilaterally Skin: no rashes or lesions, warm and dry Psych: appropriate mood and affect, judgment and insight intact Objective Data Vital Signs Vital Signs:
[2023-03-10 16:00] VITALS: BP 119/56; PULSE 82; RESP 24; TEMP 35.7; O2SAT 97
[2023-03-10 16:42] LABS: Glucose Point of Care 185 mg/dl (65-105)
[2023-03-10 20:00] VITALS: PULSE 82; RESP 24; O2SAT 97
[2023-03-10] MEDS: HYDROmorphone HCL INJ (*CRX) 1 MG/ML SYR 0.5 MG IV PUSH (20:00)
[2023-03-10] MEDS: INSULIN GLARGINE (*BKC) 100 UNITS/ML 15 UNITS SUB-Q (20:01)
[2023-03-10 20:08] LABS: Glucose Point of Care 208 mg/dl (65-105)
[2023-03-10 22:00] VITALS: BP 145/57; PULSE 106; RESP 18; TEMP 36.1; O2SAT 95
[2023-03-11] VITALS (11 sets, daily range): BP systolic 87–142; BP diastolic 54–76; PULSE 76–97; RESP 13–20; TEMP 35.9–36.9; O2SAT 95–100
[2023-03-11] MEDS: HYDROmorphone HCL INJ (*CRX) 1 MG/ML SYR 0.5 MG IV PUSH (01:32)
[2023-03-11] MEDS: ONDANSETRON INJ 4 MG/2 ML VIAL IV PUSH (01:32)
[2023-03-11 04:34] LABS: Hematocrit 35.9 % (37.0-47.0); Hemoglobin 11.2 g/dL (12.0-15.0); Mean Corpuscular HGB Conc 31.2 g/dl (32-36); Mean Corpuscular Hemoglobin 27.5 pg (26-34); Mean Corpuscular Volume 88.2 fl (80-100); Mean Platelet Volume 9.4 fl (7.4-10.4); Platelet Count Result 151 k/mm3 (150-375); Red Blood Count 4.07 M/mm3 (4.2-5.4); Red Cell Distribution Width 16.2 % (11.5-14.5); White Blood Count 6.9 K/mm3 (4.5-10.0)
[2023-03-11 04:52] LABS: Anion Gap 7 mmol/L (8-16); Blood Urea Nitrogen 14 mg/dL (7-17); Calcium 8.6 mg/dL (8.4-10.2); Carbon Dioxide 18 mmol/L (22-30); Chloride 112 mmol/L (98-107); Estimated CRCL calculation 44 ml/min; Estimated Glomerular Filt Rate 46; Glucose 160 mg/dL (65-110); Potassium 3.8 mmol/L (3.4-5.0); Sodium 137 mmol/L (137-145)
--- NOTE | 2023-03-11 07:51 | WPDUROPN2 ---
Progress Note: A&P Assessment and Plan (1) Pyelonephritis of right kidney: Code(s): N12 - Tubulo-interstitial nephritis, not specified as acute or chronic Status: Acute (2) Hydroureteronephrosis: Code(s): N13.30 - Unspecified hydronephrosis Status: Acute Plan Pt is having ongoing nausea and R flank pain despite IV antibiotics, PO antifungals, antiemetics and pain medication. Cr increased to 1.3 today. Urine cx prelim is growing GNR. Discussed treatment options with the patient. Due to mild R hydronephrosis with ongoing nausea and flank pain, she elects to proceed with cystoscopy and R stent placement today. She understands the risks including but not limited to bleeding, infection, damage the urinary tract, stent irritation, and risks of anesthesia. She understands the stent is temporary and will need to f/u with Dr. Coats for stent removal/further intervention. Pt understands and elects to proceed. Subjective Subjective Date/Time Seen: 03/11/23 07:51 Interval history: Patient is still having issues with nausea and right flank pain. Had transient improvement with toradol but has recurred. Minimal PO intake Review of Systems Review of Systems: Twelve systems were reviewed and are negative except for as per HPI. All systems reviewed & are unremarkable except as noted in HPI and below Exam Narrative: 62 yr old female in NAD HENMT: Face/Nose/Sinus: Normal nares present Eyes: General: appearance normal, both eyes and all related structures Neck: Neck: supple Resp: Effort & Inspection: normal respiratory effort GI: Inspection: non-distended : Other: R CVAT Objective Data Vital Signs Vital Signs: Vital Signs - 24 hr 03/10/23 08:10 03/10/23 16:00 03/10/23 20:00 Temperature 35.7 C L Pulse Rate 82 82 Respiratory Rate 24 H 24 H Blood Pressure 119/56 L Pulse Oximetry 97 97 Oxygen Delivery Room Air Room Air 03/10/23 22:00 03/11/23 06:00 Temperature 36.1 C L 36.4 C L Pulse Rate 106 H 97 Respiratory Rate 18 16 Blood Pressure 145/57 H 142/54 H Pulse Oximetry 95 95 Oxygen Delivery Intake/Output Intake/Output: Intake & Output 03/08/23 03/09/23 03/10/23 03/11/23 23:59 23:59 23:59 23:59 Intake Total 1650 990 800 Balance 1650 990 800 Meds/Results Medications: Active Medications Generic Name Dose Route Start Last Admin Trade Name Yousuf PRN Reason Stop Dose Admin Acetaminophen 650 mg 03/09/23 23:03 03/10/23 20:00 Acetaminophen 325 Mg Tablet PO 650 mg Q6H PRN Administration Mild Pain (1-3) or Fever Hydrocodone Bitart/Acetaminophen 1 tab 03/09/23 23:03 03/10/23 03:43 Hydrocodone/Acetaminophen (*Crx) 5-325 Mg Tablet PO 1 tab Q6H PRN Administration Pain Rated 4-6 Buspirone HCl 10 mg 03/09/23 23:04 03/10/23 08:23 Buspirone Hcl 10 Mg Tablet PO 10 mg Q12H PRN Administration Anxiety Dextrose 12.5 gm 03/09/23 23:03 Dextrose 50% 25 Gm/50 Ml Syringe IV PUSH PRN PRN Hypoglycemia Protocol Empagliflozin 25 mg 03/10/23 09:00 03/10/23 08:23 Empagliflozin 25 Mg Tablet PO 25 mg DAILY OLGA Administration Fluconazole 150 mg 03/10/23 09:00 03/10/23 08:23 Fluconazole 150 Mg Tablet PO 150 mg DAILY OLGA Administration Glucagon 1 mg 03/09/23 23:03 Glucagon For Inj 1 Mg Vial IM PRN PRN Hypoglycemia Protocol Glucose 15 gm 03/09/23 23:03 Glucose Oral Gel 15 Gm Of Glucse In 37.5 Gm Tube PO PRN PRN Hypoglycemia Protocol Hydromorphone HCl 0.5 mg 03/09/23 11:14 03/11/23 01:32 Hydromorphone Hcl Inj (*Crx) 1 Mg/Ml Syr IV PUSH 0.5 mg Q4H PRN Administration Pain Rated 7-10 Dextrose 1,000 mls @ 100 mls/hr 03/09/23 23:03 Dextrose 5% 1,000 Ml IVPB PRN PRN Hypoglycemia Protocol Ceftriaxone Sodium 1 gm in 50 mls @ 100 mls/hr 03/10/23 09:00 03/10/23 10:00 Rocephin 1 Gm/Ns 50 Ml IVPB Infused
[2023-03-11 07:54] LABS: Glucose Point of Care 160 mg/dl (65-105)
[2023-03-11] MEDS: SODIUM CHLORIDE 0.9% IV 1,000 ML 100 ML IV CONT ×2 (08:35→20:42)
[2023-03-11] MEDS: INSULIN GLARGINE (*BKC) 100 UNITS/ML 15 UNITS SUB-Q (08:36)
--- NOTE | 2023-03-11 09:33 | WPDANESEPP ---
Anes - Eval Pre Procedure Procedure: Operation Date: 03/11/23 10:00 Proposed Procedures p Cystoscopy with Stent Removal(Right) - Mary Allen MD Date/Time: 03/11/23 09:33 Pre Op Diagnosis: Pyelonephritis Patient Data Age: 62 Gender: F Height: 1.6 m Weight: 80.2 kg Last Vital Signs Temp 36.4 C L 03/11/23 06:00 Pulse 97 03/11/23 06:00 Resp 16 03/11/23 06:00 BP 142/54 H 03/11/23 06:00 Pulse Ox 95 03/11/23 06:00 O2 Del Method Room Air 03/11/23 08:30 Allergies Allergy/AdvReac Type Severity Reaction Status Date / Time No Known Allergies Allergy Mild Verified 02/10/23 15:24 Home Medications Medication Instructions Recorded Confirmed Type buspirone 10 mg tablet 10 mg PO Q12H PRN Anxiety 08/31/22 03/09/23 History empagliflozin 25 mg tablet 25 mg PO DAILY 08/31/22 03/09/23 History (Jardiance) sertraline 100 mg tablet 100 mg PO DAILY 08/31/22 03/09/23 History insulin glargine 100 unit/mL (3 10 unit (0.1 mL) subcut Q12H #10 mL 09/07/22 03/09/23 Rx mL) subcutaneous pen (Basaglar KwikPen U-100 Insulin) vibegron 75 mg tablet (Gemtesa) 75 mg PO DAILY 03/09/23 03/09/23 History Laboratory Tests 03/10/23 03/10/23 03/10/23 11:35 16:36 19:56 WBC RBC Hgb Hct MCV MCH MCHC RDW Plt Count MPV Sodium Potassium Chloride Carbon Dioxide Anion Gap BUN Creatinine Estim Creat Clear Calc Estimated GFR Glucose POC Capillary Glucose 274 H mg/dl 185 H mg/dl 208 H mg/dl (65-105) (65-105) (65-105) Calcium 03/11/23 03/11/23 04:28 07:50 WBC 6.9 K/mm3 (4.5-10.0) RBC 4.07 L M/mm3 (4.2-5.4) Hgb 11.2 L g/dL (12.0-15.0) Hct 35.9 L % (37.0-47.0) MCV 88.2 fl (80-100) MCH 27.5 pg (26-34) MCHC 31.2 L g/dl (32-36) RDW 16.2 H % (11.5-14.5) Plt Count 151 k/mm3 (150-375) MPV 9.4 fl (7.4-10.4) Sodium 137 mmol/L (137-145) Potassium 3.8 mmol/L (3.4-5.0) Chloride 112 H mmol/L (98-107) Carbon Dioxide 18 L mmol/L (22-30) Anion Gap 7 L mmol/L (8-16) BUN 14 mg/dL (7-17) Creatinine 1.20 H mg/dL (0.7-1.0) Estim Creat Clear Calc 44 ml/min Estimated GFR 46 L (59 - ) Glucose 160 H mg/dL (65-110) POC Capillary Glucose 160 H mg/dl (65-105) Calcium 8.6 mg/dL (8.4-10.2) ECG: ? Measurements Intervals? [place]? Rate: ? 93 ? P:? 56 PA: ? 197? QRS:? 38 QRSD: ? 81 ? T:? 69 QT: ? 342? QTc:? 426? Interpretive Statements SINUS RHYTHM CANNOT RULE OUT SEPTAL MYOCARDIAL INFARCTION , PROBABLY OLD [40+ ms Q WAVE IN V1/V2] COMPARED TO ECG 09/01/2022 15:04:03 SINUS RHYTHM NOW PRESENT Electronically Signed On 03-09-2023 11:05:03 CDT by Piedad Severino M.D. Patient hx anesthesia problems: none Family hx anesthesia problems: none Results Review: All pre-operative results and documents have been reviewed as part of the pre-operative evaluation. [facility] Past Medical History Medical History Hypertension Kidney stones Overactive bladder Type 2 diabetes mellitus Surgical History Surgical History History of appendectomy History of cystoscopy Biopsy of papillary bladder lesion was consistent with fungal cystitis. History of hysterectomy Family History Family History (Review
--- NOTE | 2023-03-11 10:17 | WPDHPUPDATE1 ---
History and Physical Update Update Date/Time: 03/11/23 10:17 History and Physical has been reviewed, including an updated exam of the patient. There are NO changes in the patient's condition. Risks, benefits, and alternatives have been discussed and questions answered. Patient agrees to proceed with procedure.
[2023-03-11] MEDS: LACTATED RINGERS 1,000 ML 30 ML IV CONT (10:30)
--- NOTE | 2023-03-11 10:46 | P.PNAN_ITS ---
Anes - Eval Final PreProcedure Day of Procedure 03/11/23 10:46 Patient weight: obese Heart: regular rate and rhythm Lungs: clear to auscultation Airway: Mallampati scale class II Neurological: alert and oriented Last oral intake: >/= 8 hours ASA classification: III Emergent: no Anesthetic plan: proceed Anesthesia type and monitoring: general LMA and standard monitoring Results Review: All pre-operative results and documents have been reviewed as part of the pre- operative evaluation. Informed Consent: The patient's anesthetic plan and its attendant risks and benefits were discussed with the patient/family/POA. Questions were solicited and answers provided to the satisfaction of the patient/family/POA.
--- NOTE | 2023-03-11 11:00 | W.PM.PROC2 ---
Procedure Note - Detailed Date of Procedure 03/11/23 Pre-op Diagnosis Pyelonephritis and right hydronephrosis Post-op Diagnosis Same Procedure Performed cystoscopy, right retrograde pyelogram and right stent placement Surgeon Mary Allen MD Anesthesia General and Local Findings moderate right hydronephrosis; purulent discharge from R UO after stent placement Description of Procedure Patient was correctly identified and informed consent was obtained. She was brought to the operating room and a formal timeout was performed. General anesthesia was induced via LMA. She had already received IV antibiotics and was not due for redosing. She was placed in dorsal lithotomy position, prepped and draped in a sterile fashion. A rigid cystoscope was inserted through the urethra into the bladder. The bladder was examined in a systematic fashion. She was noted to have mild trabeculations with cystitis cystica. No suspicious masses seen. The right ureteral orifice was intubated with a Bentson wire which was advanced under fluoroscopy up into the right kidney. Using a 5 fr open ended catheter, a gentle retrograde pyelogram was performed to delineate the renal anatomy. She was noted to have moderate hydronephrosis. A 6 fr variable length stent was placed under fluoroscopic guidance with a curl in the renal pelvis and another curl in the bladder. There was drainage of white purulent fluid from the right ureteral orifice. The bladder was drained of its contents and 2% lidocaine gel was inserted. She was awaken and taken to the recovery room in a stable fashion. Implants 6Fr variable length stent Estimated Blood Loss 5 Complications No immediate complications Condition Stable Disposition PACU
[2023-03-11 11:57] LABS: Glucose Point of Care 119 mg/dl (65-105)
--- NOTE | 2023-03-11 12:15 | PC.NURSE ---
pt back in room at this time via bed from surgery.
[2023-03-11] MEDS: ACETAMINOPHEN 325 MG TABLET 650 MG PO (12:19)
[2023-03-11] MEDS: INSULIN ASPART (*BKC) 100 UNITS/ML SUB-Q ×2 (12:20→16:59)
[2023-03-11] MEDS: FLUCONAZOLE 150 MG TABLET PO (12:20)
[2023-03-11] MEDS: busPIRone HCL 10 MG TABLET PO (12:20)
[2023-03-11] MEDS: SERTRALINE HCL 50 MG TABLET 100 MG PO (12:20)
[2023-03-11] MEDS: EMPAGLIFLOZIN 25 MG TABLET PO (12:20)
--- NOTE | 2023-03-11 15:17 | PM.IMPN ---
Progress Note: A&P Assessment and Plan (1) Pyelonephritis of right kidney: Code(s): N12 - Tubulo-interstitial nephritis, not specified as acute or chronic Status: Acute Assessment and Plan: UA is grossly abnormal and her CT scan showed right perinephric stranding. 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 In light of persistent flank pain and slight increase in serum creatinine, patient elected to proceed with cystoscopy and right ureteral stent placement which was completed today by Dr. Allen. patient tolerated the procedure well appreciate urology recommendation will need outpatient follow-up for stent removal at a later date (3) Kidney stones: Code(s): N20.0 - Calculus of kidney Status: Acute Assessment and Plan: Presumed right renal pelvis and nonobstructing left renal stones noted on imaging. per Urology, felt to actually reflect fungal tissue given her recent history Management per urology. (4) Type 2 diabetes mellitus: Code(s): E11.9 - Type 2 diabetes mellitus without complications Status: Acute Assessment and Plan: poorly controlled type 2 diabetes mellitus. A1c is 11.1 poor glucose control likely contributing to fungal infections continue Accu-Cheks, sliding scale insulin, hypoglycemic protocol Lantus increased to 15 units q.h.s. NovoLog 5 units t.i.d. continue Jardiance at this time. will need follow-up with PCP to consider alternative treatment given recurrent UTI monitor glucose trends and adjust insulin regimen as needed (5) Hypokalemia: Code(s): E87.6 - Hypokalemia Status: Acute Assessment and Plan: Resolved. Potassium 3.8 today monitor BMP Subjective Date/time seen: 03/11/23 15:17 Interval history: Date of service: 03/11/2023 Verona Frausto is a 62-year-old female with a history of type 2 diabetes mellitus, hypertension, kidney stones, overactive bladder, and fungal cystitis who is seen in follow-up for pyelonephritis. underwent right ureteral stent placement today and had just returned from procedure upon my evaluation. Patient states she tolerated the procedure well. She has mild right flank discomfort at This time which she rates as 3/10. She denies nausea or vomiting. She does complain of dysuria. Denies fevers or chills. No shortness breath, cough, or chest pain. Review of Systems Review of Systems: All systems reviewed & are unremarkable except as noted in HPI and below Exam Narrative: General: Well-nourished, well-appearing 62-year-old female, sitting up in bed, comfortable, NARD Neuro: awake, alert and oriented x4, speech clear, no focal neuro deficits noted HEENMT: normocephalic, atraumatic, EOMI, sclerae anicteric Respiratory: clear to auscultation bilaterally, nonlabored breathing Cardio: regular rate, regular rhythm with S1-S2 Abdomen: nondistended, normoactive bowel sounds, soft, right flank Is tender to palpation Extremities: no edema, erythema, or tenderness to palpation, DP pulses 2+ bilaterally Skin: no rashes or lesions, warm and dry Psych: appropriate mood and affect, judgment and insight intact Objective Data Vital Signs Vital Signs: Vital Signs - 24 hr 03/10/23 16:00 03/10/23 20:00 03/10/23 22:00 Temperature 96.3 F L 96.9 F L Pulse Rate 82 82 106 H Respiratory Rate 24 H 24 H 18 Blood Pressure 119/56 L 145/57 H Pulse Oximetry 97 97 95 Oxygen Delivery
[2023-03-11 17:02] LABS: Glucose Point of Care 179 mg/dl (65-105)
[2023-03-11 20:37] LABS: Glucose Point of Care 93 mg/dl (65-105)
[2023-03-12] VITALS: BP 145/79; PULSE 99; RESP 20; TEMP 35.6; O2SAT 96
[2023-03-12 06:13] VITALS: BP 144/70; PULSE 79; RESP 18; TEMP 35.5; O2SAT 97
[2023-03-12 06:37] LABS: Hematocrit 36.5 % (37.0-47.0); Mean Corpuscular HGB Conc 30.1 g/dl (32-36); Mean Corpuscular Volume 89.7 fl (80-100); Mean Platelet Volume 10.2 fl (7.4-10.4); Platelet Count Result 174 k/mm3 (150-375); Red Blood Count 4.07 M/mm3 (4.2-5.4); Red Cell Distribution Width 16.1 % (11.5-14.5)
[2023-03-12 06:44] LABS: Anion Gap 6 mmol/L (8-16); Blood Urea Nitrogen 17 mg/dL (7-17); Calcium 8.5 mg/dL (8.4-10.2); Carbon Dioxide 23 mmol/L (22-30); Chloride 111 mmol/L (98-107); Estimated CRCL calculation 59 ml/min; Estimated Glomerular Filt Rate > 60; Glucose 165 mg/dL (65-110); Potassium 3.8 mmol/L (3.4-5.0); Sodium 140 mmol/L (137-145)
--- NOTE | 2023-03-12 06:47 | WPDUROPN2 ---
Progress Note: A&P Assessment and Plan (1) Hydroureteronephrosis: Code(s): N13.30 - Unspecified hydronephrosis Status: Acute (2) Pyelonephritis of right kidney: Code(s): N12 - Tubulo-interstitial nephritis, not specified as acute or chronic Status: Acute Assessment and Plan: Much better following stent placement. Urine cx: proteus. Home on oral abx. x10-14 days / no anti-fungal needed. Will arrange stent removal/right pyelogram and ureteroscopy as outpatient. Subjective Subjective Date/Time Seen: 03/12/23 06:47 Interval history: Feeling much better following stent removal Review of Systems Cardiovascular: Cardiovascular: Denies chest pain, Denies lightheadedness, Denies palpitations and Denies dyspnea Respiratory: Respiratory: Denies dyspnea Gastrointestinal: Gastrointestinal: Denies diarrhea, Denies nausea and Denies vomiting Genitourinary: Genitourinary: Denies hematuria and Denies dysuria Endocrine: Endocrine: Denies palpitations Objective Data Vital Signs Vital Signs: Vital Signs - 24 hr 03/11/23 08:30 03/11/23 10:59 03/11/23 11:05 Temperature 98.5 F Pulse Rate 85 84 Respiratory Rate 13 16 Blood Pressure 87/59 L 88/59 L Pulse Oximetry 98 99 Oxygen Delivery Room Air Simple Face Mask Simple Face Mask Oxygen Flow Rate 8 8 03/11/23 11:13 03/11/23 11:20 03/11/23 11:35 Temperature Pulse Rate 83 86 85 Respiratory Rate 16 20 20 Blood Pressure 99/60 L 126/70 129/69 Pulse Oximetry 99 100 100 Oxygen Delivery Simple Face Mask Simple Face Mask Room Air Oxygen Flow Rate 8 8 03/11/23 11:50 03/11/23 12:00 03/11/23 19:10 Temperature 97.9 F 98.2 F Pulse Rate 82 83 76 Respiratory Rate 20 19 16 Blood Pressure 120/70 123/73 141/76 H Pulse Oximetry 96 96 100 Oxygen Delivery Room Air Room Air Oxygen Flow Rate 03/11/23 20:00 03/11/23 19:00 03/12/23 00:00 Temperature 96.7 F L 96.1 F L Pulse Rate 76 87 99 Respiratory Rate 16 16 20 Blood Pressure 137/70 145/79 H Pulse Oximetry 100 95 96 Oxygen Delivery Room Air Oxygen Flow Rate 03/12/23 06:13 Temperature 96 F L Pulse Rate 79 Respiratory Rate 18 Blood Pressure 144/70 H Pulse Oximetry 97 Oxygen Delivery Oxygen Flow Rate Intake/Output Intake/Output: Intake & Output 03/09/23 03/10/23 03/11/23 03/12/23 23:59 23:59 23:59 23:59 Intake Total 6026 077 4770 300 Balance 6991 545 6514 300 Meds/Results Medications: Active Medications Generic Name Dose Route Start Last Admin Trade Name Freq PRN Reason Stop Dose Admin Acetaminophen 650 mg 03/09/23 23:03 03/11/23 12:19 Acetaminophen 325 Mg Tablet PO 650 mg Q6H PRN Administration Mild Pain (1-3) or Fever Hydrocodone Bitart/Acetaminophen 1 tab 03/09/23 23:03 03/10/23 03:43 Hydrocodone/Acetaminophen (*Crx) 5-325 Mg Tablet PO 1 tab Q6H PRN Administration Pain Rated 4-6 Buspirone HCl 10 mg 03/09/23 23:04 03/11/23 12:20 Buspirone Hcl 10 Mg Tablet PO 10 mg Q12H PRN Administration Anxiety Dextrose 12.5 gm 03/09/23 23:03 Dextrose 50% 25 Gm/50 Ml Syringe IV PUSH PRN PRN Hypoglycemia Protocol Empagliflozin 25 mg 03/10/23 09:00 03/11/23 12:20 Empagliflozin 25 Mg Tablet PO 25 mg DAILY OLGA Administration Fentanyl Citrate 25 mcg 03/11/23 10:47 Fentanyl Citrate Inj (*Crx) 100 Mcg/2 Ml Vial IV PUSH Q2M PRN Pain Fluconazole 150 mg 03/10/23 09:00 03/11/23 12:20 Fluconazole 150 Mg Tablet PO 150 mg DAILY OLGA Administration Glucagon 1 mg 03/09/23 23:03 Glucagon For Inj 1 Mg Vial IM PRN PRN Hypoglycemia Protocol Glucose 15 gm 03/09/23 23:03 Glucose Oral Gel 15 Gm Of Glucse In 37.5 Gm Tube PO PRN PRN Hypoglycemia Protocol Hydromorphone HCl 0.5 mg 03/09/23 11:14 03/11/23 01:32 Hydromorphone Hcl Inj (*Crx) 1 Mg/Ml Syr IV PUSH 0.5 mg Q4H PRN Administration Pain Rated 7-10
[2023-03-12 07:54] LABS: Glucose Point of Care 174 mg/dl (65-105)
[2023-03-12] MEDS: FLUCONAZOLE 150 MG TABLET PO (08:33)
[2023-03-12] MEDS: EMPAGLIFLOZIN 25 MG TABLET PO (08:33)
[2023-03-12] MEDS: SERTRALINE HCL 50 MG TABLET 100 MG PO (08:34)
[2023-03-12] MEDS: SODIUM CHLORIDE 0.9% IV 1,000 ML 100 ML IV CONT (08:35)
[2023-03-12] MEDS: INSULIN ASPART (*BKC) 100 UNITS/ML SUB-Q ×2 (08:39→12:24)
[2023-03-12] MEDS: INSULIN GLARGINE (*BKC) 100 UNITS/ML 15 UNITS SUB-Q (08:41)
[2023-03-12 09:56] VITALS: PULSE 81; O2SAT 97
[2023-03-12 11:23] LABS: Glucose Point of Care 176 mg/dl (65-105)
--- NOTE | 2023-03-12 12:09 | PM.DS ---
DS: Admitting Diagnosis Discharge Date 03/12/2023 Admitting Diagnosis Pyelonephritis DS: Discharge Diagnosis Discharge Diagnosis (1) Pyelonephritis of right kidney: Code(s): N12 - Tubulo-interstitial nephritis, not specified as acute or chronic Status: Acute Assessment and Plan: UA is grossly abnormal and her CT scan showed right perinephric stranding. Treated with IV ceftriaxone during admission and fluconazole given patient's history of fungal cystitis Urine culture with growth of >100k CFU Proteus mirabilis Underwent right stent placement on 03/11/2023 and tolerated this procedure well She will continue PO cefdinir as an outpatient to complete a 14 day course Will follow-up with urology Patient remained afebrile, no leukocytosis Per Urology, no need for ongoing antifungal treatment (2) Hydroureteronephrosis: Code(s): N13.30 - Unspecified hydronephrosis Status: Acute Assessment and Plan: Mild right hydroureteronephrosis noted on imaging. In light of persistent flank pain and slight increase in serum creatinine, patient elected to proceed with cystoscopy and right ureteral stent placement which was completed on 03/11/[address] Allen. patient tolerated the procedure well Continue with outpatient urology follow-up for stent removal at a later date (3) Kidney stones: Code(s): N20.0 - Calculus of kidney Status: Acute Assessment and Plan: Presumed right renal pelvis and nonobstructing left renal stones noted on imaging. per Urology, felt to possibly reflect fungal tissue given her recent history. No antifungal needed Managed per urology. (4) Type 2 diabetes mellitus: Code(s): E11.9 - Type 2 diabetes mellitus without complications Status: Acute Assessment and Plan: poorly controlled type 2 diabetes mellitus. A1c is 11.1 Poor glucose control likely contributing to urinary infections Discussed importance of tight glycemic control Blood sugars well controlled during admission Encouraged to monitor blood sugars a.c. HS and follow-up with PCP in 1 week for review Continue Lantus Continue Jardiance at this time. will need follow-up with PCP to consider alternative treatment given recurrent UTI (5) Hypokalemia: Code(s): E87.6 - Hypokalemia Status: Acute Assessment and Plan: Resolved with supplementation DS: Summary Hospital Course Hospital Course: Verona Frausto is a 62-year-old female with a history of type 2 diabetes mellitus, hypertension, kidney stones, overactive bladder, and fungal cystitis who presented to the emergency department on 03/09/2023 with complaints of right flank pain and right lower quadrant pain. On presentation to the ED, she was mildly tachycardic, BP 95/81, additional vital signs stable, WBC within normal limits, random blood sugar was 300, additional laboratory workup unremarkable, UA grossly abnormal, and CT of the abdomen/pelvis showed presumed right renal pelvis stones with mild right hydroureteronephrosis and right perinephric stranding. She was admitted to the hospitalist service for further evaluation and management was seen in consultation by Urology. Please see above for further details. She was treated with appropriate antibiotics and underwent right ureteral stent placement. Symptoms improved markedly and patient was feeling back to her usual state of health felt comfortable with plans for discharge home. Discussed with the patient worrisome signs and symptoms for which to return and she was educated on her medications. She was discharged in hemodynamically stable condition on 03/12/2023. Time Spent with Patient Time attestation: Total time spent providing and/or coordinating discharge services: 45 minutes Time spent: Greater than 30 minutes Exam Narrative: General: Well-nourished, well-appearing 62-year-old female, sitting up in bed, comfortable, NARD Neuro:
== END 2023-03-12 14:32 | disposition home or self-care (01) | DRG 463 ==
LOC: ANHED 11:23 → ANH3MEDSUR 12:23
PROVIDERS: Physician Assistant; Urology; Admitting Provider Internal Medicine; Emergency Provider Emergency Medicine; PCP Family Medicine; Visit Provider Physician Assistant
PROC: 0T768DZ Dilation of Right Ureter with Intraluminal Device, Via Natural or Artificial Opening Endoscopic (ICD-10-PCS; CPT 52310; principal; 2023-03-11 10:00)
DX: N13.6 Pyonephrosis (principal); N20.0 Calculus of kidney; B96.4 Proteus (mirabilis) (morganii) as the cause of diseases classified elsewhere; N32.81 Overactive bladder; E11.9 Type 2 diabetes mellitus without complications; E87.6 Hypokalemia; E66.9 Obesity, unspecified; I10 Essential (primary) hypertension; Z68.32 Body mass index [BMI] 32.0-32.9, adult; Z87.442 Personal history of urinary calculi; Z90.49 Acquired absence of other specified parts of digestive tract; Z90.710 Acquired absence of both cervix and uterus; Z87.891 Personal history of nicotine dependence; Z79.4 Long term (current) use of insulin
CPT/HCPCS: 36415; 74176; 74420; 80048; 80053; 81001; 82948; 83036; 83605; 83735; 85025; 85027; 87040; 87077; 87086; 87186; 93005; 96365; 96375; 96376; 99285; A9270; C1758; C1769; C2617; G0378; J0696; J1170; J1815; J1885; J2250; J2405; J2704; J3010; J7030; J7120

== ENCOUNTER 2025-05-25 12:46 | Emergency (ER) | payer BC, SELFPAY ==
[2025-05-25 12:48] VITALS: BP 152/80; PULSE 86; RESP 16; TEMP 36.7; O2SAT 96
--- OUTSIDE RECORDS SUMMARY | 2025-05-25 12:48 | XMS_ITS | Clinical Summary ---
Author Organization [facility] Address [address] [place] [address] Care Team Providers Care Sheetmetal Trades Worker Name Role Phone Andrew Severino MD Primary Care Provider [phone] Source Comments [facility],non-owned Affiliates and Associated Physician Practices is amultiple site organization consisting of ambulatory clinics and hospital sitesin [place], [place], [place] and [place]. This disclosure is being madepursuant to the Care Everywhere program and may not contain all information available regarding this patient. Last updated 18.[facility] Allergies No known active allergies Medications * Be aware that medications may not be up to date on this document. Alwaysverify current medications with the patient. metFORMIN ER 24hr (Glucophage XR) 500MG tablet Take 1 (one) tablet by mouth 2 times daily Active dulaglutide (Trulicity) 1.5 MG/0.5ML injection Inject 0.5 mL subcutaneously every 7 days Active levothyroxine (Unithroid) 25 MCG tablet Take 1 (one) tablet by mouth daily before breakfast Active busPIRone (Buspar) 10 MG tablet Take 1 (one) tablet by mouth 2 times daily Active sertraline (Zoloft) 100 MG tablet Take 1 (one) tablet by mouth once daily Active aspirin EC (Ecotrin) 81 MG tablet Take 1 (one) tablet by mouth once daily Active rosuvastatin (Crestor) 20 MG tablet Take 1 (one) tablet by mouth once daily Active Active Problems Problem Noted Date Diagnosed Date Type 2 diabetes mellitus wit h hyperglycemia, with long-term current use of insulin 04/04/2023 Sepsis without acute organ dysfunction Lesion of liver 04/04/2023 Perinephric abscess 04/03/2023 History of kidney stones 04/03/2023 Tobacco abuse 06/13/2017 Resolved Problems Problem Noted Date Diagnosed Date Resolved Date Fever, unspecified fever cause 04/03/2023 04/04/2023 Flank pain 04/03/2023 04/04/2023 Family History Medical History Relation Name Comments Renal Disease Mother Relation Name Status Comments Mother Social History Tobacco Use Types Packs/Day Years Used Date Smoking Tobacco: Every Day Smokeless Tobacco: Never Tobacco Cessation:Ready to Q uit: No Alcohol Use Standard Drinks/Week Comments No 0 (1 standard drink = 0.6 oz pur e alcohol) AUDIT-C Answer Date Recorded Q1: How often do you have a drink containing alc ohol? Never 04/04/2023 Average Number of Drinks Not on file 023 Frequency of Binge Drinking Not on file 03/13 Overall Financial Resource Strain (CARDIA) Answe r Date Recorded How hard is it for you to pa y for the very basics like food, housing, medical care, and heating? Not hard at all 04/04/2023 [facility] [place] [facility] Occupat ional Health - Occupational Stress Questionnaire Answer Date Recorded Do you feel stress - tense, restless, nervous, or anxious, or unable to sleep at night because your mind is troubled all the time - these days? Not at all 04/04/2023 Hunger Vital Sign Answer Date Recorded Within the past 12 months, y ou worried that your food would run out before you got the money to buy more. Never true 04/04/20 23 Within the past 12 months, t he food you bought just didn't last and you didn't have money to get more. Never true 04/04/2023 PRAPARE - Transportation Answer Date Re corded In the past 12 months, has l ack of transportation kept you from medical appointments or from getting medications? No 03/13 In the past 12 months, has l ack of transportation kept you from meetings, work, or from getting things needed for daily living? No 04/04/2023 Housing Stability Vital Sign Answer Khanh e Recorded In the last 12 months, was t here a time when you were not able to pay the mortgage or rent on time? No 04/04/2023 In the last 12 months, how many places have you lived? 1 04/04/2023 In the last 12 months, was t here a time when you did not have a steady place to sleep or slept in a assisted (including now)? 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 Gender Identity Not on file Sexual Orientation Not on file Last Filed Vital Signs Vital Sign Reading Time Taken Comments Blood Pressure 150/70 04/11/2023 11:53 AM CDT Pulse 63 04/11/2023 11:53 AM CDT Temperature 36.7 C (98 F) 04/11/2023 11:53 AM CDT Respiratory Rate 18 04/11/2023 11:53 AM CDT Oxygen Saturation 97% 04/11/2023 11:53 AM CDT Inhaled Oxygen Concentration - - Weight 77.1 kg (170 lb) 04/03/2023 7:24 PM CDT Height 162.6 cm (5' 4) 04/03/2023 7:24 PM CDT Body Mass Index 29.18 04/03/2023 7:24 PM CDT Plan of Treatment Health Maintenance Due Date Last Done Comments COLON MONITORING 1961 COLONOSCOPY - COLON CA SCREENING 1961 CT COLONOGRAPHY - COLON CA SCREENING 1961 FIT - COLON CA SCREENING 1961 FLEX SIG - COLON CA SCREENING 1961 MAMMOGRAM 1961 HIV SCREENING 1976 DTAP/TDAP/TD VACCINES (1 - Tdap) 1980 PNEUMOCOCCAL VACCINE 50+ (1 of 2 - PCV) 1980 PAP SMEAR 1982 ZOSTER VACCINE (1 of 2) 2011 DIABETES RETINOPATHY SCREENING 04/04/2023 DIABETES-FOOT EXAM WITH MONOFILAMENT 04/04/2023 DIABETES-HGB A1C 04/04/2023 COLOGUARD (AGES 45-75) - COLON CA SCREENING 10/21/2023 10/21/2020 Colorectal Cancer Screening 10/21/2023 DIABETES-SERUM CREATININE 04/11/20242022, 04/10/2023, 04/09/2023, Additional history exists COVID-19 VACCINE ( season) 2024 11/18/2021, 02/20/2021, 01/27/2021 DEPRESSION SCREENING 11/12/2024 DIABETES - URINE PROTEIN SCREENING 11/12/2024 INFLUENZA VACCINE (#1) 2025 2, 08/23/2021, 08/31/2020, Additional history exists Respiratory Syncytial Virus (RSV) Vaccine Pt: or over 60 yrs (1 - 1-dose 75+ series) 2036 HEPATITIS C SCREENING Completed 04/06/2023 HEPATITIS B VACCINE Aged Out No longe r eligible based on patient's age to complete this topic HIB VACCINE Aged Out No longer eligi ble based on patient's age to complete this topic HPV VACCINE Aged Out No longer eligi ble based on patient's age to complete this topic MENINGOCOCCAL (Group B) VACCINE SHARED DECISION-MAKING Aged Out No longer eligible based on patient's age to complete this topic MENINGOCOCCAL GROUPS A/C/Y/W VACCINE Aged Out No longer eligible based on patient's age to complete this topic Procedures Procedure Name Priority Date/Time Associated Diagnosis Comments RENAL FUNCTION PANEL AM Draw 04/11/2023 6:28 AM CDT HEPATITIS C AB SCREEN RFLX NAAT QUANT AM Draw 04/06/2023 5:45 AM CDT from Last 3 Months or Most Recently Relevant to Health Maintenance Results * (ABNORMAL) RENAL FUNCTION PANEL (04/11/2023 6:28 AM CDT) BUN 22 7 - 26 mg/dL 04/11/2023 8:00 AM [facility] Creatinine 1.36(H) 0.56 - 0.96 mg/dL 04/11/2023 8:00 AM [facility] Sodium 140 136 - 145 mmol/L 04/11/2023 8:00 AM [facility] Potassium 4.6(H) 3.5 - 4.5 mmol/L 04/11/2023 8:00 AM [facility] Chloride 107 98 - 107 mmol/L 04/11/2023 8:00 AM [facility] CO2 23 22 - 29 mmol/L 04/11/2023 8:00 AM [facility] Glucose 141(H) 70 - 115 mg/dL 04/11/2023 8:00 AM [facility] Albumin 2.5(L) 3.4 - 5.0 g/dL 04/11/2023 8:00 AM [facility] Calcium 9.1 8.4 - 10.2 mg/dL 04/11/2023 8:00 AM [facility] Phosphorus 4.7 2.9 - 5.1 mg/dL 04/11/2023 8:00 AM [facility] Anion Gap 15 8 - 18 04/11/2023 8:00 AM [facility] BUN/Creatinine Ratio 16 7 - 23 04/11/2023 8:00 AM [facility] Osmolality Calculated 296 270 - 300 mOsm/kg 04/11/2023 8:00 AM [facility] eGFR by CKD-EPI 44(L) >=90 mL/min/1.7 3 m2 04/11/2023 8:00 AM [facility] Blood BLOOD SPECIMEN / Unknown Lab Venipuncture / Unknown 04/11/2023 6:28 AM CDT 04/11/2023 7:34 AM CDT us June Peguero MD LAB - CHEMISTRY ORDERABLES Fin al Result [facility] [address] [place] [id number], [facility] [phone] * HEPATITIS C AB SCREEN RFLX NAAT QUANT (04/06/2023 5:45 AM CDT) Hepatitis C Antibody Non-react rosangela Non-reac tive 04/06/2023 7:02 AM [facility] Comment:Hepatitis C Antibody screen indicates no serologic evidence of past or current infection with Hepatitis C Virus. Patients with unexplained liver disease who are immunocompromised or suspected of having acute Hepatitis C infection may benefit from Nucleic Acid Test (MAXIMILIAN) for Hepatitis C Viral RNA to confirm Hepatitis C status. Blood BLOOD SPECIMEN / Unknown Lab Venipuncture / Unknown 04/06/2023 5:45 AM CDT 04/06/2023 6:17 AM CDT Iris Pena MD LAB - CHEMISTRY ORDERABLES Final Result [facility] [address] [place] [address], [facility] [phone] from Last 3 Months or Most Recently Relevant to Health Maintenance Insurance [facility] [place] [id number] Advance Directives * LIMITED RESUSCITATION-PRIOR AND AFTER ARREST (Latest Code Status on File) Date Activated Date Inactivated Comments 04/04/2023 12:25 AM 04/11/2023 3:38 PM Question Answer Comments Limited Resuscitation: No Chest Compress ionNo Intubation, No Invasive VentilationNo Cardioversion, No Defibrilation, No External or Internal Pacemaker Care Teams Sheetmetal Trades Worker Relationship Specialty Start Date End Date Andrew Severino MD [address] [place] [address] PCP - General Family Medicine 04/05/23
--- OUTSIDE RECORDS SUMMARY | 2025-05-25 12:49 | XMS_ITS | Encounter Summary ---
Author Organization [facility] Address [address] [place] [address] Care Team Providers Care Dispensary Technician Name Role Phone Andrew Severino MD Primary Care Provider [phone] Encounter Details Date Type Department Care Team ([facility] st Contact Info) Description 04/23/2023 Telephone [facility] - Centralized Scheduling [address] [place] [address] Lore Pack MD [address] [facility] [address] [place] [address] Social History Tobacco Use Types Packs/Day Years Used Date Smoking Tobacco: Every Day Smokeless Tobacco: Never Alcohol Use Standard Drinks/Week Comments No 0 [...] and heating? Not hard at all 04/04/2023 [facility] [place] of Occupat ional Health - Occupational Stress [...] place to sleep or slept in a long term (including now)? 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 No / Unsure 04/23/2023 9:34 AM CDT documented as of this encounter Functional Status * Is person deaf or have serious hearing difficulty? Answer Date of Assessment Author No 04/04/2023 8:45 PM CDT [facility]al Live RN * Is person blind or have serious difficulty seeing? Answer Date of Assessment Author No 04/04/2023 8:45 PM CDT [facility] RN * Does person have serious difficulty walking/climbing stairs? Answer Date of Assessment Author No 04/04/2023 8:45 PM CDT [facility], [place] * Does person have difficulty dressing/bathing? Answer Date of Assessment Author No 04/04/2023 8:45 PM CDT [facility] RN * Does person have difficulty doing errands alone? Answer Date of Assessment Author No 04/04/2023 8:45 PM CDT [facility] RN documented as of this encounter Mental Status * Does person have difficulty concentrating/remembering/making decisions? Answer Entry Date Author No 04/04/2023 8:45 PM CDT [facility] RN documented in this encounter Miscellaneous Notes * Telephone Encounter - Palma Schultz - 04/23/2023 9:43 AM CDT Pt. Verona phoned in today asking for authorization sent to be sent to the insurance company so she can be seen. Pt stated her insurance isn't accepted so she needs an authorization. Pt callback is [phone] documented in this encounter Plan of Treatment Not on file documented as of this encounter Visit Diagnoses Not on filedocumented in this encounter Care Teams Dispensary Technician Relationship Specialty Start Date End Date Andrew Severino MD [address] [place] [id number] PCP - General Family Medicine 04/05/23 documented as of this encounter
--- OUTSIDE RECORDS SUMMARY | 2025-05-25 12:49 | XMS_ITS | Clinical Summary ---
Author Organization [facility] Address [facility] [place] [address] Care Team Providers Care Automatic Spooler Operator Name Role Phone None, Provider MD Primary Care Provider Unavaila ble Allergies No known active allergies Medications aspirin 81 MG chewable tablet Chew 1 tablet (81 mg total) by mouth daily. 30 tablet 11/29/2023 Active hydroCHLOROthiaz digna (HYDRODIURIL) 25 MG tablet Take 1 tablet (25 mg total) by mouth every morning. 30 tablet 11/29/2023 Active Social History Tobacco Use Types Packs/Day Years Used Date Smoking Tobacco: Never Smokeless Tobacco: Never Tobacco Cessation:Counseling Given: Not Answered Alcohol Use Standard Drinks/Week Comments Never 0 (1 standard drink = 0.6 oz pur e alcohol) Comments Unknown Sex and Gender Information Value Date Recorded Sex Assigned at Not on file Legal Sex Female 3:32 PM INCLUSION INTERN Gender Identity Not on file Sexual Orientation Not on file Last Filed Vital Signs Vital Sign Reading Time Taken Comments Blood Pressure 199/108 11/29/2023 6:57 PM INCLUSION INTERN Pulse 89 11/29/2023 3:39 PM INCLUSION INTERN Temperature 36.2 C (97.2 F) 11/29/2023 3:39 PM INCLUSION INTERN Respiratory Rate 18 11/29/2023 6:56 PM INCLUSION INTERN Oxygen Saturation 99% 11/29/2023 3:39 PM INCLUSION INTERN Inhaled Oxygen Concentration - - Weight 86.3 kg (190 lb 4.1 oz) 11/29/2023 3:39 P M INCLUSION INTERN Height 162.6 cm (5' 4) 11/29/2023 3:39 PM INCLUSION INTERN Body Mass Index 32.66 11/29/2023 3:39 PM INCLUSION INTERN Plan of Treatment Health Maintenance Due Date Last Done Comments Colorectal Cancer Screening Colonoscopy (10 Years) 1961 Annual Physical 1964 Hepatitis C 1979 DTaP, Tdap and Td Vaccines (1 - Tdap) 1980 Mammogram Screening 2001 Pneumococcal Vaccine: 50+ Years (1 of 1 - PCV) 2011 Zoster Vaccines (1 of 2) 2011 COVID-19 Vaccine (6 - season) 2024 11/18/2021, 02/20/2021, 02/20/2021, Additional history exists RSV Immunization or 60+ Years (1 - 1-dose 75+ series) 2036 Meningococcal B Vaccine Aged Out No l onger eligible based on patient's age to complete this topic Meningococcal Vaccine Aged Out No tegan ruthie eligible based on patient's age to complete this topic RSV Immunizations Under 20 Months Aged Out No longer eligible based on patient's age to complete this topic Insurance jaye Lopez[address] C/O PROVIDER SERVICES [place] [id number] Care Teams Automatic Spooler Operator Relationship Specialty Start Date End Date None, Provider, PCP - General UNKNOWN PHYSICIAN SPECIALTY 11/29/23
[2025-05-25] MEDS: CLINDAMYCIN HCL 150 MG CAP 450 MG PO (13:14)
--- OUTSIDE RECORDS SUMMARY | 2025-05-25 13:19 | XMS_ITS | Continuity of Care Document ---
Author Organization [facility] Address [address] [place] [address] [phone] Phone Care Team Providers Care Machine Shop Inspector Name Role Phone Flynn OD, Naga Unavailable Unavailable Procedures Procedure Date Eye Exam & Treatment Refraction Eye Exam & Treatment Advance Directives Directive Yes / No Effective Date File Name No Information Encounters Encounter Description Practice Location Reason(s) For Visit Diagnoses Date Provider Providers Copied on Encounter [facility], [address] [place] [address] [address], , [id number], tel:[phone] [facility] [place] No Information 4-200 9 Flynn OD Naga. [address] [facility] [address] [facility] , [address], [place], [place], [facility] [place], [place]. tel:[phone] [facility], [address] [place] [address] [address], , [id number], tel:[phone] SEC [facility] No Information 9-200 7 Flynn OD Naga. [address] [facility] , [address], [place], [address], [place]. tel:[phone] Family History Family Member Type Diagnosis Age At Onset No Information Payers Payer name Insurance type Covered democrat ID Authoriza tion(s) Medicaid [facility] [id number] Social History Type Description Quantity Date Captured Comments Sex Female Smoking Status No Information Chief Complaint And Reason For Visit No Information Reason For Referral Reason For Referral No Information History Of Present Illness Encounter Date Complaint History Of Prese nt Illness No Information Functional Status Date Functional Assessmen t No Information Instructions Date Instruction Additional Infor mation No Information Assessments Type Assessment Date No Information Patient Care Teams Name Effective Dates (start - stop) Status Members No Information
--- OUTSIDE RECORDS SUMMARY | 2025-05-25 13:19 | XMS_ITS | Encounter Summary ---
Author Organization [facility] Address [address] [place] [address] Care Team Providers Care Street Light Repairer Helper Name Role Phone Andrew Severino MD Primary Care Provider [phone] Encounter Details Date Type Department Care Team ([facility] st Contact Info) Description 04/23/2023 Telephone [facility] - Centralized Scheduling [address] [place] [address] Lore Pack MD [address] [facility] [address] [place] [address] Social History Tobacco Use Types [...] and heating? Not hard at all 04/04/2023 [facility] [place] [facility] Occupat ional Health - Occupational Stress [...] place to sleep or slept in a senior care (including now)? 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 Pt callback is [phone] documented in this encounter Plan of Treatment Not on file documented as of this encounter Visit Diagnoses Not on filedocumented in this encounter Care Teams Street Light Repairer Helper Relationship Specialty Start Date End Date Andrew Severino MD [address] [place] [id number] PCP - General Family Medicine 04/05/23 documented as of this encounter
--- OUTSIDE RECORDS SUMMARY | 2025-05-25 13:19 | XMS_ITS | Clinical Summary ---
Author Organization [facility] Address [facility] [place] [address] Care Team Providers Care Claim Examiner Name Role Phone None, Provider MD Primary [...] on file Legal Sex Female 3:32 PM ADOLESCENT COUNSELOR Gender Identity Not on file Sexual Orientation Not on file Last Filed Vital Signs Vital Sign Reading Time Taken Comments Blood Pressure 199/108 11/29/2023 6:57 PM ADOLESCENT COUNSELOR Pulse 89 11/29/2023 3:39 PM ADOLESCENT COUNSELOR Temperature 36.2 C (97.2 F) 11/29/2023 3:39 PM ADOLESCENT COUNSELOR Respiratory Rate 18 11/29/2023 6:56 PM ADOLESCENT COUNSELOR Oxygen Saturation 99% 11/29/2023 3:39 PM ADOLESCENT COUNSELOR Inhaled Oxygen Concentration - - Weight 86.3 kg (190 lb 4.1 oz) 11/29/2023 3:39 P M ADOLESCENT COUNSELOR Height 162.6 cm (5' 4) 11/29/2023 3:39 PM ADOLESCENT COUNSELOR Body Mass Index 32.66 11/29/2023 3:39 PM ADOLESCENT COUNSELOR Plan of Treatment Health Maintenance Due Date [...] age to complete this topic Insurance jaye Lopez[address] Care Teams Claim Examiner Relationship Specialty Start Date End Date None, Provider, PCP - General UNKNOWN PHYSICIAN SPECIALTY 11/29/23
--- OUTSIDE RECORDS SUMMARY | 2025-05-25 13:19 | XMS_ITS | Clinical Summary ---
Author Organization [facility] Address [address] [place] [address] Care Team Providers Care Metal Coater Name Role Phone Andrew Severino MD Primary Care Provider [phone] Source Comments [facility],non-owned Affiliates and Associated Physician Practices is amultiple site organization consisting of ambulatory clinics and hospital sitesin [place], [place], [place] and [place]. This disclosure is being madepursuant to the Care Everywhere program and may not contain all information available regarding this patient. Last updated 18.[facility] Allergies No known active allergies Medications * [...] and heating? Not hard at all 04/04/2023 [facility] [place] of Occupat ional Health - Occupational Stress [...] place to sleep or slept in a fdc (including now)? No 04/04/2023 Comments Unknown Sex and Gender Information Value Date Recorded Sex Assigned at Not on file Legal Sex Female 5:01 AM SKY CAP Gender Identity Not on file Sexual Orientation [...] 7 - 26 mg/dL 04/11/2023 8:00 AM [facility] Creatinine 1.36(H) 0.56 - 0.96 mg/dL 04/11/2023 8:00 AM [facility] Sodium 140 136 - 145 mmol/L 04/11/2023 8:00 AM [facility] Potassium 4.6(H) 3.5 - 4.5 mmol/L 04/11/2023 8:00 AM [facility] Chloride 107 98 - 107 mmol/L 04/11/2023 8:00 AM [facility] CO2 23 22 - 29 mmol/L 04/11/2023 8:00 AM [facility] Glucose 141(H) 70 - 115 mg/dL 04/11/2023 8:00 AM [facility] Albumin 2.5(L) 3.4 - 5.0 g/dL 04/11/2023 8:00 AM [facility] Calcium 9.1 8.4 - 10.2 mg/dL 04/11/2023 8:00 AM [facility] Phosphorus 4.7 2.9 - 5.1 mg/dL 04/11/2023 8:00 AM [facility] Anion Gap 15 8 - 18 04/11/2023 8:00 AM [facility] BUN/Creatinine Ratio 16 7 - 23 04/11/2023 8:00 AM [facility] Osmolality Calculated 296 270 - 300 mOsm/kg 04/11/2023 8:00 AM [facility] eGFR by CKD-EPI 44(L) >=90 mL/min/1.7 3 m2 04/11/2023 8:00 AM [facility] Blood BLOOD SPECIMEN / Unknown Lab Venipuncture / Unknown 04/11/2023 6:28 AM CDT 04/11/2023 7:34 AM CDT us June Peguero MD LAB - CHEMISTRY ORDERABLES Fin al Result [facility] [address] [place] [phone], [facility] [phone] * HEPATITIS C AB SCREEN RFLX NAAT QUANT (04/06/2023 5:45 AM CDT) Hepatitis C Antibody Non-react rosangela Non-reac tive 04/06/2023 7:02 AM [facility] Comment:Hepatitis C Antibody screen indicates no [...] MD LAB - CHEMISTRY ORDERABLES Final Result [facility] [address] [place] [address], [facility] [phone] from Last 3 Months or Most Recently Relevant to Health Maintenance Insurance [facility] MEDICA[facility] [place] [id number] Advance Directives * LIMITED RESUSCITATION-PRIOR AND AFTER ARREST (Latest Code Status on File) Date Activated Date Inactivated Comments 04/04/2023 12:25 AM 04/11/2023 3:38 PM Question Answer Comments Limited Resuscitation: No Chest Compress ionNo Intubation, No Invasive VentilationNo Cardioversion, No Defibrilation, No External or Internal Pacemaker Care Teams Metal Coater Relationship Specialty Start Date End Date Andrew Severino MD [address] [place] [address] PCP - General Family Medicine 04/05/23
--- NOTE | 2025-05-25 13:20 | ED_ITS ---
HPI - Skin/Abscess/Foreign Bdy General Chief complaint: Wound/Laceration Stated complaint: spider bite Time Seen by Provider: 05/25/25 12:56 History of Present Illness HPI narrative: A few days ago patient noticed an area redness and pain to her left lower leg that has been getting bigger and becoming more painful. No drainage. No recent injuries. No itching. No fevers or chills Related Data Home Medications ?Medication ?Instructions ?Recorded ?Confirmed ?Last Taken ?Type buspirone 10 mg tablet 10 mg PO Q12H PRN Anxiety 08/31/22 03/09/23 Unknown History empagliflozin 25 mg tablet 25 mg PO DAILY 08/31/22 03/09/23 Unknown History (Jardiance) sertraline 100 mg tablet 100 mg PO DAILY 08/31/22 03/09/23 Unknown History vibegron 75 mg tablet (Gemtesa) 75 mg PO DAILY 03/09/23 03/09/23 Unknown History insulin glargine 100 unit/mL (3 35 unit subcut BID 03/12/23 03/12/23 Unknown History mL) subcutaneous pen (Basaglar KwikPen U-100 Insulin) Allergies Allergy/AdvReac Type Severity Reaction Status Date / Time No Known Allergies Allergy Mild Verified 05/25/25 12:50 Review of Systems Review of Systems: All systems reviewed & are unremarkable except as noted in HPI and below PMFSH Past Medical History Medical History Hypertension Kidney stones Overactive bladder Type 2 diabetes mellitus Surgical History Surgical History History of appendectomy History of cystoscopy Biopsy of papillary bladder lesion was consistent with fungal cystitis. History of hysterectomy Family History Family History Other Diabetes mellitus Hypertension Social History Social History Social History: Surrogate medical decision maker: Kinga Frausto, daughter. Code status: Full code. Smoking status: Former smoker Alcohol intake: never Substance use: never Substance use type: does not use Lack of Transportation: No Lack of Food: Never True Current Housing: I Have Housing Concerned About Future Housing: No Difficulty Paying Gas/Electric Bills: No Difficulty Paying for Meds: No Currently Unemployed: No Education: Decline to Answer Difficulty w/ Childcare or Family Care: No Additional living arrangements comments: Lives in [place]. Spiritual care concerns: No Exam Narrative: EXAMINATION OF ORGAN SYSTEMS/BODY AREAS: Constitutional: Vital signs per nursing GENERAL:[No acute distress, non-toxic appearing.] HEAD: Normal with no signs of head trauma. EYES: EOMI, conjunctiva normal ENT: Hearing grossly intact LUNGS: Nonlabored breathing. HEART: [Regular rate and rhythm] ABD: [Soft], [nontender to palpation] EXT: 3 cm area of induration, redness, no fluctuance, tender, left lower leg SKIN: [No rashes or lesions.] NEURO: [Alert and oriented x 3. No gross focal sensory or strength deficits.] PSYCH: Normal affect Course Vital Signs Vital signs: Vital Signs Temperature 98.1 F 05/25/25 12:48 Pulse Rate 86 05/25/25 12:48 Respiratory Rate 16 05/25/25 12:48 Blood Pressure 152/80 H 05/25/25 12:48 Pulse Oximetry 96 05/25/25 12:48 Temperature 98.1 F 05/25/25 12:48 Pulse Rate 86 05/25/25 12:48 Respiratory Rate 16 05/25/25 12:48 Blood Pressure 152/80 H 05/25/25 12:48 Pulse Oximetry 96 05/25/25 12:48 MDM - Skin/Abscess/Foreign Bdy MDM Narrative Medical decision making narrative: MEDICAL DECISION MAKING AND COURSE IN THE ED WITH INTERPRETATION/REVIEW OF DIAGNOSTIC STUDIES: Patient presented to the ED with complaint of painful skin rash. Vitals [were within acceptable limits]. Physical exam revealed area of tenderness and induration consistent with cellulitis, without fluctuance that may benefit from drainage. She does have a history of diabetes which I feel put her at higher risk for worsening infection. Thankfully no systemic symptoms. [Patient was given clindamycin here and a course to continue at home.] The patient is discharged home in stable condition. I have asked the patient to return to the emergency department for worsening pain, worsening and increasing size of skin infection, fevers/chills. The patient is instructed to follow up with [PCP] in [2] days. Patient verbalized understanding. Discharge Plan Discharge Clinical Impression: Cellulitis Patient Disposition: Home Condition: Stable Instructions: Antibiotic Form, Cellulitis (ED) Additional Instructions: Please follow up with your doctor for recheck; take the antibiotics as prescribed, if you notice the area is getting bigger, hurting more, or anything else concerning, come back to the hospital. Also make sure your diabetes and blood sugar are under control. Patient Language: Uzbek Prescriptions: New clindamycin HCl [Cleocin HCl] 150 mg capsule 450 mg PO Q8H 7 Days Qty: 63 0RF No Action Gemtesa 75 mg Tablet 75 mg PO DAILY cefdinir 300 mg capsule 300 mg PO Q12H Qty: 20 0RF insulin glargine [Basaglar KwikPen U-100 Insulin] 100 unit/mL (3 mL) insulin pen 35 unit SUBCUT BID sertraline 100 mg tablet 100 mg PO DAILY Jardiance 25 mg tablet 25 mg PO DAILY buspirone 10 mg tablet 10 mg PO Q12H PRN (Reason: Anxiety) Follow-up/Referrals: Maycol,MD Andrew [Primary Care Provider] - 2 Days
== END 2025-05-25 13:21 | disposition home or self-care (01) ==
LOC: ANHED 13:09
PROVIDERS: Emergency Provider Emergency Medicine; PCP Family Medicine
DX: L03.116 Cellulitis of left lower limb (principal); I10 Essential (primary) hypertension; E11.9 Type 2 diabetes mellitus without complications; Z87.442 Personal history of urinary calculi; N32.81 Overactive bladder; Z87.891 Personal history of nicotine dependence; Z90.710 Acquired absence of both cervix and uterus; Z79.4 Long term (current) use of insulin; Z79.899 Other long term (current) drug therapy
CPT/HCPCS: 99283